=== PATIENT | female | born 1955 | race Caucasian/White ===

== ENCOUNTER 2019-07-02 11:26 | Outpatient (CLI) | payer MEDICARE, SELFPAY | END 2019-07-02 11:27 | disposition home or self-care (01) | LOC: LAB 11:32 | DX: R21 Rash and other nonspecific skin eruption (principal) | CPT/HCPCS: 36415 ==

== ENCOUNTER 2019-07-20 13:09 | Outpatient (CLI) | payer MEDICARE, SELFPAY | END 2019-07-20 13:10 | disposition home or self-care (01) | LOC: LAB 13:15 | PROVIDERS: Visit Provider Family Medicine | DX: Z76.89 Persons encountering health services in other specified circumstances (principal) ==

== ENCOUNTER 2019-07-23 10:23 | Outpatient (RCR) | payer MEDICARE, SELFPAY | END 2019-07-30 23:59 | disposition home or self-care (01) | LOC: WOUND 10:23 | PROVIDERS: Visit Provider Surgery | DX: T65.91XA Toxic effect of unspecified substance, accidental (unintentional), initial encounter (principal); Y92.9 Unspecified place or not applicable | CPT/HCPCS: 11042; 11045; G0463 ==

== ENCOUNTER 2019-08-27 08:33 | Outpatient (RCR) | payer MEDICARE, SELFPAY | END 2019-08-28 23:59 | disposition home or self-care (01) | LOC: WOUND 08:33 | PROVIDERS: Visit Provider Surgery | DX: I96 Gangrene, not elsewhere classified (principal); L98.8 Other specified disorders of the skin and subcutaneous tissue | CPT/HCPCS: 11042; 11045; 87070; 87176; 87205; 88305 ==

== ENCOUNTER 2019-09-24 08:59 | Outpatient (RCR) | payer MEDICARE, SELFPAY | END 2019-09-28 23:59 | disposition home or self-care (01) | LOC: WOUND 08:59 | PROVIDERS: Visit Provider Surgery | DX: E11.622 Type 2 diabetes mellitus with other skin ulcer (principal); L97.802 Non-pressure chronic ulcer of other part of unspecified lower leg with fat layer exposed | CPT/HCPCS: 11042; 11045 ==

== ENCOUNTER 2019-10-22 09:16 | Outpatient (RCR) | payer MEDICARE, SELFPAY | END 2019-10-28 23:59 | disposition home or self-care (01) | LOC: WOUND 09:16 | PROVIDERS: Visit Provider Surgery | DX: E11.622 Type 2 diabetes mellitus with other skin ulcer (principal); L97.802 Non-pressure chronic ulcer of other part of unspecified lower leg with fat layer exposed | CPT/HCPCS: 11042; 11045 ==

== ENCOUNTER 2019-10-29 10:05 | Outpatient (CLI) | payer MEDICARE, SELFPAY | END 2019-10-29 10:06 | disposition home or self-care (01) | LOC: WOUND 11-01 13:29 | PROVIDERS: Visit Provider Surgery | DX: E11.622 Type 2 diabetes mellitus with other skin ulcer (principal); L97.802 Non-pressure chronic ulcer of other part of unspecified lower leg with fat layer exposed | CPT/HCPCS: 11042; 11045 ==

== ENCOUNTER 2019-11-05 09:52 | Outpatient (CLI) | payer MEDICARE, SELFPAY | END 2019-11-05 09:53 | disposition home or self-care (01) | LOC: WOUND 09:54 | PROVIDERS: Visit Provider Surgery | DX: E11.622 Type 2 diabetes mellitus with other skin ulcer (principal); L97.802 Non-pressure chronic ulcer of other part of unspecified lower leg with fat layer exposed | CPT/HCPCS: 11042; 11045 ==

== ENCOUNTER 2019-11-12 09:43 | Outpatient (CLI) | payer MEDICARE, SELFPAY | END 2019-11-12 09:44 | disposition home or self-care (01) | LOC: WOUND 09:44 | PROVIDERS: Visit Provider Surgery | DX: E11.622 Type 2 diabetes mellitus with other skin ulcer (principal); L97.802 Non-pressure chronic ulcer of other part of unspecified lower leg with fat layer exposed | CPT/HCPCS: 11042; 11045 ==

== ENCOUNTER 2019-11-19 08:51 | Outpatient (CLI) | payer MEDICARE, SELFPAY | END 2019-11-19 08:52 | disposition home or self-care (01) | LOC: WOUND 08:52 | PROVIDERS: Visit Provider Surgery | DX: E11.622 Type 2 diabetes mellitus with other skin ulcer (principal); L97.802 Non-pressure chronic ulcer of other part of unspecified lower leg with fat layer exposed | CPT/HCPCS: 11042; 11045 ==

== ENCOUNTER 2019-12-17 08:44 | Outpatient (CLI) | payer MEDICARE, SELFPAY | END 2019-12-17 08:45 | disposition home or self-care (01) | LOC: WOUND 08:46 | PROVIDERS: Visit Provider Surgery | DX: E11.622 Type 2 diabetes mellitus with other skin ulcer (principal); L97.802 Non-pressure chronic ulcer of other part of unspecified lower leg with fat layer exposed | CPT/HCPCS: 11042; 11045 ==

== ENCOUNTER 2020-01-14 09:10 | Outpatient (CLI) | payer MEDICARE, SELFPAY | END 2020-01-14 09:11 | disposition home or self-care (01) | LOC: WOUND 09:11 | PROVIDERS: Visit Provider Surgery | DX: E11.622 Type 2 diabetes mellitus with other skin ulcer (principal); L97.802 Non-pressure chronic ulcer of other part of unspecified lower leg with fat layer exposed | CPT/HCPCS: 99212 ==

== ENCOUNTER 2020-01-24 07:42 | Day surgery (SDC) | payer MEDICARE, SELFPAY ==
[2020-01-21 09:45] VITALS: BMI 34.7
[2020-01-24] VITALS (14 sets, daily range): BP systolic 115–139; BP diastolic 68–101; PULSE 77–117; RESP 16–30; TEMP 36.2–36.7; O2SAT 95–100; BMI 38.0
--- NOTE | 2020-01-24 07:39 | ANES.PREANE2 ---
Pre-Anesthetic Assessment Pre-Anesthetic Assessment: Height/Weight: Height 1.57 m Weight 86.183 kg Proposed Procedure: Operation Date: 01/24/20 09:25 Proposed Procedures p Debridement THIGH WOUND(Bilateral) - Hasmukh Washington MD Social: Social History: No alcohol and No tobacco Exam: Pre-Anes Outpt Exam: alert, oriented x 3, clear to auscultation bilaterally and regular rate & rhythm Airway: Submandibular: WNL Cervical ROM: WNL MP: 2 Dentition: Other (mult missing) History/ROS: No significant history except as noted Pulmonary: Pulmonary: COLÓN CV/HEM: CV/HEM: HTN : : UTI Hepatic: Hepatic: None reported GI: GI: None reported Metabolic: Metabolic: DM and Morbid obesity Musc/skel: Musc/skel: Fibromyalgia, Lower Back Pain and OA/DJD Neuropsych: Neuropsych: Anxiety, Depression and Neuropathy (bilat LE) Anesthetic Plan: ASA status: 3 Anesthesia: Anesthesia Evaluation and General Risk of > 500 ml blood loss (7ml/kg in children): No PFSH Anesthesia PFSH: Medical History Bipolar disorder Cataracts, bilateral Chronic UTI (urinary tract infection) Depression Diabetes mellitus, type II Fibromyalgia Hypertension Osteoarthritis Sleep apnea Surgical History History of cholecystectomy History of gastric surgery History of knee replacement History of orthopedic surgery Data Anesthesia Cardiac Studies: No Data to Display
[2020-01-24 08:30] LABS: Glucose Point of Care 117 mg/dL (70-110)
[2020-01-24] MEDS: sodium chloride 0.9% 1,000 ML 30 ML IV (08:47)
--- NOTE | 2020-01-24 09:42 | W.PM.OPSUD ---
Surgery/Procedure H&P Update DATE OF PROCEDURE: January 24, 2020 DATE H&P PERFORMED: 01/14/20 H&P UPDATE INFORMATION: I have reviewed H&P completed within last 30 days, I have examined patient prior to procedure and No changes to prior documentation PREOP DIAGNOSIS: Bilateral thigh wounds PRIMARY INDICATION FOR PROCEDURE: The same PLANNED PROCEDURE: Operation Date: 01/24/20 09:25 Proposed Procedures p Debridement THIGH WOUND(Bilateral) - Hasmukh Washington MD
[2020-01-24] MEDS: clindamycin 900 MG/50 ML PREMIX 100 MG IV (09:45)
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
[2020-01-24] MEDS: fentaNYL 50 mcg/mL INJ 2mL IVP ×2 (11:09→11:14)
--- NOTE | 2020-01-24 11:12 | SUR.PHASEI ---
1105 PATIENT TO PACU FROM OR. RR EVEN AND UNLABORED. SPO2 99% ON SIMPLE MASK AT 8L. DRESSINGS TO DANIA THIGHS, CDI. PATIENT RATES PAIN 10/10.
[2020-01-24] MEDS: morphine 4 mg/mL SDV 1 mL 2 MG IVP ×2 (11:20→11:29)
--- NOTE | 2020-01-24 11:49 | SUR.PHASEI ---
1141 PATIENT TO OPS FROM PACU. NO DISTRESS. PAIN 03/09. SEE VITALS. DANIA THIGH DRESSINGS, CDI.
--- NOTE | 2020-01-24 12:21 | SUR.PHASEII ---
DOCTOR CHRISTINEURGIUS IN TO TALK WITH PATIENT AND FAMILY.
== END 2020-01-24 12:35 | disposition home or self-care (01) ==
PROVIDERS: Visit Provider Surgery
PROC: (CPT 11042; principal; 2020-01-24 09:15)
DX: L97.122 Non-pressure chronic ulcer of left thigh with fat layer exposed (principal); L97.112 Non-pressure chronic ulcer of right thigh with fat layer exposed; I10 Essential (primary) hypertension; E66.01 Morbid (severe) obesity due to excess calories; Z68.38 Body mass index [BMI] 38.0-38.9, adult; E11.40 Type 2 diabetes mellitus with diabetic neuropathy, unspecified; F32.9 Major depressive disorder, single episode, unspecified; M79.7 Fibromyalgia; M19.90 Unspecified osteoarthritis, unspecified site; G47.30 Sleep apnea, unspecified
CPT/HCPCS: 11042; 11045 ×6; 12345; 36416; 82962; 87015; 87070; 87077; 87116; 87176; 87184; 87186; 87205; 87206; 87801; 88304; 96365; J0131; J2270; J2704; J2710; J3010; J3490; J7030

== ENCOUNTER 2020-01-28 09:08 | Outpatient (CLI) | payer MEDICARE, SELFPAY | END 2020-01-28 09:09 | disposition home or self-care (01) | LOC: WOUND 09:21 | PROVIDERS: Visit Provider Surgery | DX: E11.622 Type 2 diabetes mellitus with other skin ulcer (principal); L98.492 Non-pressure chronic ulcer of skin of other sites with fat layer exposed | CPT/HCPCS: 99212; 99213 ==

== ENCOUNTER 2020-05-05 12:26 | Outpatient (CLI) | payer MEDICARE, SELFPAY ==
[2020-05-05 12:47] LABS: Basophils % 0.4 %; Eosinophils # 0.2 10^3/uL (0.0-0.8); Eosinophils % 2.9 %; Hematocrit 37.7 % (37.0-47.0); Hemoglobin 11.9 g/dL (11.5-15.3); Lymphocytes # 3.8 10^3/uL (0.8-4.8); Lymphocytes % 47.9 %; Mean Corpuscular HGB Conc 31.6 g/dL (30.0-36.0); Mean Corpuscular Hemoglobin 32.6 pg (28.0-34.0); Mean Corpuscular Volume 103.3 fL (81-99); Mean Platelet Volume 11.5 fL (7.4-10.4); Monocytes # 0.5 10^3/uL (0.2-0.9); Neutrophils % 42.7 %; Nucleated Red Blood Cells % 0 %; Platelet Count 195 10^3/cmm (130-400); Red Blood Count 3.65 10^6/uL (4.1-5.3); Red Cell Distribution Width 12.1 % (12.1-15.1)
[2020-05-05 13:10] LABS: Alanine Aminotransferase 11 U/L (0-33); Albumin Level 3.7 g/dL (3.5-5.2); Alkaline Phosphatase 94 IU/L (35-105); Anion Gap 14.4 (5-19); Aspartate Amino Transferase 19 U/L (0-32); Blood Urea Nitrogen 18 mg/dL (8-23); Calcium 9.6 mg/dL (8.5-10.5); Carbon Dioxide 24 mmol/L (22-29); Chloride 103 mmol/L (98-107); Chol HDL Ratio 2.53 mg/dL (0.0-4.40); Cholesterol 149 mg/dL (0-200); Globulin 3.1 g/dL (1.3-4.6); Glomerular Filtration Rate 123.1 mL/min (90-130); Glucose 111 mg/dL (65-115); HDL Cholesterol 59 mg/dL (60-100); LDL Cholesterol Calculated 49 mg/dL (50-129); LDL HDL Ratio 0.83 RATIO (0.00-3.22); Osmolality Calculated 287 mOsm/kg (285-295); Potassium 4.4 mmol/L (3.5-5.1); Sodium 137 mmol/L (136-145); Total Bilirubin 0.2 mg/dL (0.15-1.2); Total Protein 6.8 g/dL (6.6-8.7); Triglycerides 203 mg/dL (0-150)
[2020-05-05 13:25] LABS: Estmated Average Glucose 111; Hemoglobin A1C 5.5 % (4.0-6.0)
== END 2020-05-05 12:27 | disposition home or self-care (01) ==
LOC: LAB 12:29
PROVIDERS: Visit Provider Family Medicine
DX: E11.622 Type 2 diabetes mellitus with other skin ulcer (principal); I10 Essential (primary) hypertension
CPT/HCPCS: 80053; 80061; 83036; 85025

== ENCOUNTER → 2020-05-09 14:23 | Outpatient (BNVA) | payer MEDICARE, SELFPAY | PROVIDERS: Visit Provider Nurse Practitioner Family | DX: Z11.59 Encounter for screening for other viral diseases (principal); J06.9 Acute upper respiratory infection, unspecified; Z20.828 Contact with and (suspected) exposure to other viral communicable diseases | CPT/HCPCS: 87635 ==

== ENCOUNTER 2020-07-19 14:47 | Outpatient (CLI) | payer MEDICARE, SELFPAY ==
[2020-07-19 15:10] LABS: Add Urine Microscopic? NO
[2020-07-19 15:35] LABS: Bilirubin Urine Neg (Negative); Blood Urine Neg (Negative); Glucose Urine UA Norm (Normal); Ketones Urine Negative (Negative); Leukocyte Esterase Urine Negative (Negative); Nitrate Urine Negative (Negative); Protein Urine Neg (Negative); Specific Gravity, Urine 1.015 (1.005-1.030); Urine Appearance Clear (CLEAR); Urine Color Yellow (Yellow); Urobilinogen Urine Norm (Negative); pH Urine 7 (5-7)
[2020-07-19 16:33] LABS: Estmated Average Glucose 120; Hemoglobin A1C 5.8 % (4.0-6.0)
[2020-07-19 16:54] LABS: Alanine Aminotransferase 13 U/L (0-33); Albumin Level 3.9 g/dL (3.5-5.2); Alkaline Phosphatase 151 IU/L (35-105); Aspartate Amino Transferase 23 U/L (0-32); Blood Urea Nitrogen 22 mg/dL (8-23); Calcium 9.9 mg/dL (8.5-10.5); Carbon Dioxide 26 mmol/L (22-29); Chloride 101 mmol/L (98-107); Globulin 3.4 g/dL (1.3-4.6); Glomerular Filtration Rate 99.7 mL/min (90-130); Glucose 100 mg/dL (65-115); Osmolality Calculated 289 mOsm/kg (285-295); Sodium 138 mmol/L (136-145); Thyroid Stimulating Hormone 7.02 uIU/mL (0.27-4.20); Total Bilirubin 0.2 mg/dL (0.15-1.2); Total Protein 7.3 g/dL (6.6-8.7)
[2020-07-19 16:56] LABS: Urine Creatinine 23 mg/dL (28-217); Urine Protein Random 5 mg/dL
[2020-07-19 17:02] LABS: UPRO/UCREAT Ratio 0.22 mg/mg CR
== END 2020-07-19 14:48 | disposition home or self-care (01) ==
PROVIDERS: Visit Provider Physician Assistant
DX: L89.92 Pressure ulcer of unspecified site, stage 2 (principal); E11.9 Type 2 diabetes mellitus without complications; I10 Essential (primary) hypertension
CPT/HCPCS: 80053; 81003; 82570; 83036; 84156; 84443

== ENCOUNTER → 2021-06-29 14:30 | Outpatient (BNVA) | payer MEDICARE, SELFPAY | PROVIDERS: Visit Provider Nurse Practitioner | DX: R39.9 Unspecified symptoms and signs involving the genitourinary system (principal) | CPT/HCPCS: 81000 ==

== ENCOUNTER 2021-11-23 12:37 | Inpatient (IN) | payer MEDICARE, SELFPAY ==
[2021-11-23] VITALS (13 sets, daily range): BP systolic 85–105; BP diastolic 46–67; PULSE 84–107; RESP 14–20; TEMP 36.7–37; O2SAT 90–98; BMI 36.3
--- NOTE | 2021-11-23 12:41 | ED_ITS ---
HPI - General Adult General: Chief complaint: Shortness of Breath/Dyspnea Stated complaint: RESPIRATORY DISTRESS Time Seen by Provider: 11/23/21 12:41 History of Present Illness: Patient is a 66-year-old female with a history of diabetes, hypertension, history of pneumonia presenting to emergency room with acute onset of dyspnea and cough since 2 AM this morning. Patient says that since then, she has been feeling increasingly more fatigued and has been coughing. Patient has not had any productive sputum. Patient normally does not use oxygen at home. EMS was called earlier today and patient was brought to the emergency room. In route, patient was noted to be on 8 L oxygen satting at 93- 94% Onset:2am Duration:ongoing Location:home Severity:moderate Associated symptoms: Reports dyspnea; Deny chest pain, nausea, rash, palpitations or vomiting Review of Systems Const: Denies: fever(s) or chills Eyes: Denies: change in vision ENMT: Denies: mouth pain Card: Denies: chest pain or palpitations Resp: Reports: dyspnea and non-productive cough GI: Denies: abdominal pain, nausea, vomiting or diarrhea : Denies: dysuria Musc: Denies: extremity pain Skin/Breast: Denies: rash or new lesions Neuro: Denies: weakness in extremities Psych: Reports: other (Normal mood) Mic/Lymph: Denies: easy bruising [facility] ED PFSH: Medical History Bipolar disorder Cataracts, bilateral Chronic UTI (urinary tract infection) Decubitus skin ulcer Depression Diabetes mellitus, type II Fibromyalgia Hypertension Osteoarthritis Sleep apnea Surgical History History of cholecystectomy History of gastric surgery History of knee replacement History of orthopedic surgery Social History Smoking and tobacco status: never smoked Physical Exam Const: COMMON NORMALS: alert HENMT: COMMON NORMALS: atraumatic HEAD & SCALP: atraumatic MOUTH: moist mucous membranes not abnormal Eye: COMMON NORMALS: EOMs intact bilaterally and conjunctivae normal CONJUNCTIVA: Yes conjunctivae normal Neck/C-Spine: COMMON NORMALS: full ROM and supple Resp: OTHER: + Mild increased work of breathing, coarse breath sounds bilaterally Cardio: COMMON NORMALS: regular rate RATE: regular rate GI: COMMON NORMALS: Soft to palpation and non-tender PALPATION: Yes Soft to palpation OTHER: No focal TTP. NO guarding rebound, guarding, rigidity. No CVA tenderness to percussion. Neg Medrano/Neg McBurney's point tenderness, no suprabupic tenderness to palpation. Extremity: COMMON NORMALS: full ROM Neuro: SENSORIUM/ORIENTATION: Yes alert MOTOR EXAM: No Abnormal motor strength present and Other motor observations present (no focal motor deficits) Psych: COMMON NORMALS: speech normal SPEECH: Yes normal speech MOOD & AFFECT: Yes euthymic mood Course Vital Signs: Vital signs: Vital Signs Temperature 98.6 F 11/23/21 12:39 Pulse Rate 94 11/23/21 17:10 Respiratory Rate 20 H 11/23/21 16:57 Blood Pressure 95/46 11/23/21 17:10 Pulse Oximetry 96 11/23/21 17:10 [facility] - General Adult Medical Decision Making 66-year-old female with a history of prior pneumonia, hypertension, diabetes presenting to the emergency room acute onset dyspnea since 2 AM this morning with nonproductive cough. On physical exam, patient was found to be satting at 91% on 5 L of oxygen. Patient has no prior oxygen requirement. Coarse breath sounds bilaterally. No signs of lower extremity edema. Count 4.4. Potassium 5.3. ANITRA on CKD with creatinine 1.5 up from baseline. X- ray chest consistent with multifocal pneumonia. Patient adamantly refuses to be on levofloxacin. S/p azithromycin and ceftriaxone, 1L of NS, and duoneb. Patient continues to require 6 L of oxygen satting at 92 to 93%. Disposition: admission Lab Data : 11/23/21 12:55 11/23/21 12:55 Radiology Impressions Chest X-Ray 11/23/21 12:43 IMPRESSION: 1. Bilateral pulmonary infiltrates most marked on the right. This would suggest active pneumonia. Laboratory Results WBC 4.4 10^3/uL (4.0-10.0) 11/23/21 12:55 RBC 3.64 10^6/uL (4.1-5.3) L 11/23/21 12:55 Hgb 11.8 g/dL (11.5-15.3) 11/23/21 12:55 Hct 37.3 % (37.0-47.0) 11/23/21 12:55 MCV 102.5 fl (81-99) H 11/23/21 12:55 MCH 32.4 pg (28.0-34.0) 11/23/21 12:55 MCHC 31.6 g/dL (30.0-36.0) 11/23/21 12:55 RDW 13.4 % (12.1-15.1) 11/23/21 12:55 Plt Count 270 10^3/cmm (130-400) 11/23/21 12:55 MPV 11.1 fL (7.4-10.4) H 11/23/21 12:55 Lymph % (Auto) Not Reportable 11/23/21 12:55 [place] % (Auto) Not Reportable 11/23/21 12:55 Lymph # (Auto) Not Reportable 11/23/21 12:55 [place] # (Auto) Not Reportable 11/23/21 12:55 Total Counted 100 (0-100) 11/23/21 12:55 Atypical Lymphs % 2.0 % (0-5) 11/23/21 12:55 Absolute Neutrophils 3.0 10^3/cmm (1.4-6.5) 11/23/21 12:55 Segmented Neutrophils 34 % 11/23/21 12:55 Abs Segm Neuts (Man) 1.5 10/cmm (1.6-7.1) L 11/23/21 12:55 Band Neutrophils 34.0 % 11/23/21 12:55 Abs Band Neuts (Man) 1.5 10^3/cmm (0.0-1.2) H 11/23/21 12:55 Absolute Lymphocytes 1.1 10^3/cmm (1.2-3.4) L 11/23/21 12:55 Lymphocytes (Manual) 23 % 11/23/21 12:55 Monocytes (Manual) 2.0 % 11/23/21 12:55 Absolute Monocytes 0.1 10^3/cmm (0.1-0.6) 11/23/21 12:55 Eosinophils (Manual) 0 % 11/23/21 12:55 Absolute Eosinophils 0.0 10^3/cmm (0.0-0.7) 11/23/21 12:55 Basophils (Manual) 0.0 % 11/23/21 12:55 Absolute Basophils 0.0 10^3/cmm (0.0-0.2) 11/23/21 12:55 Metamyelocytes 5.0 % 11/23/21 12:55 Platelet Estimate Normal (Normal) 11/23/21 12:55 Sodium 136 mmol/L (136-145) 11/23/21 12:55 Potassium 5.3 mmol/L (3.5-5.1) H 11/23/21 12:55 Chloride 104 mmol/L (98-107) 11/23/21 12:55 Carbon Dioxide 18 mmol/L (22-29) L 11/23/21 12:55 Anion Gap 19.3 (5-19) H 11/23/21 12:55 BUN 31 mg/dL (8-23) H 11/23/21 12:55 Creatinine 1.5 mg/dL (0.5-0.9) H 11/23/21 12:55 GFR Calculation 34.5 mL/min (90-130) L 11/23/21 12:55 Glucose 123 mg/dL (65-115) H 11/23/21 12:55 Calculated Osmolality 290 mOsm/kg (285-295) 11/23/21 12:55 Calcium 9.0 mg/dL (8.5-10.5) 11/23/21 12:55 Troponin T Baseline 10 ng/L (0-10) 11/23/21 12:55 C-Reactive Protein 23.8 mg/L (0.0-4.9) H 11/23/21 12:55 NT-Pro-B Natriuret Pep 2270 pg/mL (0-125) H 11/23/21 12:55 Procalcitonin 9.78 ng/mL (0-0.5) H 11/23/21 12:55 Nasal Influ A H1 2009 PCR Not detected (NOT DETECT) 11/23/21 12:56 Coronavirus 229E (PCR) Not detected (NOT DETECT) 11/23/21 12:56 Influenza A (H1) PCR Not detected (NOT DETECT) 11/23/21 12:56 Influenza A (H3) PCR Not detected (NOT DETECT) 11/23/21 12:56 Influenza Type A (PCR) Not detected (NOT DETECT) 11/23/21 12:56 Influenza Type B (PCR) Not detected (NOT DETECT) 11/23/21 12:56 SARS-CoV-2 (PCR) Not detected (NOT DETECT) 11/23/21 12:56 Imaging Data Other Imaging: Radiologist's impression: [address] [address] XRay Report Signed Patient: Aiyana Sorto Unit #: [id number] : 1955 Age/Sex: 66 / F ADM Date: 11/23/21 Loc: ER Room/Bed: Attending Dr: Ordering Provider/Ordering MD: Gladys Perez MD Date of Service: 11/23/21 Procedure(s): XR chest 1V portable [id number] Accession Number(s): [id number] Report Number: [id number] WS: [id number] Exam: XR chest 1V portable [id number] Date/Time of Exam: 11/23/2021 12:46 PM Reason For Exam: dyspnea Comparison 06/09/2019. There are patchy infiltrates in the mid and lower right lung and also along the left heart border suggesting active pneumonia. The lungs are fully expanded. No pleural effusions. Normal cardiomediastinal silhouette. Bony structures are intact. XR/XR chest 1V portable [id number] IMPRESSION: 1. Bilateral pulmonary infiltrates most marked on the right. This would suggest active pneumonia. ? Dictated By: Davy London DO Signed By: Davy London DO Signed Date/Time: 11/23/21 1303 DD/ 1301 Discharge Plan Discharge Patient Disposition: Admitted As Inpatient Admit Provider: Yuan Ellison Clinical Impression: Acute dyspnea, Hypoxemia, Acute respiratory distress, Pneumonia, ANITRA (acute kidney injury) Condition: Stable Coding Level of Care Code ED Shells Inspector for Chg Fwd Exam Comprehensive
--- NOTE | 2021-11-23 12:43 | XR_ITS ---
WS: [email or web address] Exam: XR chest 1V portable [id number] Date/Time of Exam: 11/23/2021 12:46 PM Reason For Exam: dyspnea Comparison 06/09/2019. There are patchy infiltrates in the mid and lower right lung and also along the left heart border sug gesting active pneumonia. The lungs are fully expanded. No pleural effusions. Normal cardiomediastina l silhouette. Bony structures are intact. XR/XR chest 1V portable [id number] IMPRESSION: 1. Bilateral pulmonary infiltrates most marked on the right. This would suggest active pneumonia.
--- NOTE | 2021-11-23 12:43 | ECG_ITS ---
[facility] Test Date: 2021-11-23 Pat Name: Aiyana Sorto Department: Room: Gender: Female Sample Carrier: : 1955 Requested By: Gladys Perez Order Number: [id number] Nico MD: Rehan Bhatti M.D. Measurements Intervals [place] Rate: 100 P: 66 RI: 129 QRS: 36 QRSD: 84 T: 66 QT: 325 QTc: 420 Interpretive Statements SINUS TACHYCARDIA LOW QRS VOLTAGE IN EXTREMITY LEADS [QRS DEFLECTION < 0.5 mV IN LIMB LEADS] ABNORMAL RHYTHM ECG Compared to ECG 06/09/2019 20:11:39 Low QRS voltage now present T-wave abnormality no longer present Electronically Signed On 11-23-2021 22:04:05 CDT by Rehan Bhatti M.D. [id number]
[2021-11-23 13:08] LABS: Hematocrit 37.3 % (37.0-47.0); Hemoglobin 11.8 g/dL (11.5-15.3); Mean Corpuscular HGB Conc 31.6 g/dL (30.0-36.0); Mean Corpuscular Hemoglobin 32.4 pg (28.0-34.0); Mean Corpuscular Volume 102.5 fl (81-99); Mean Platelet Volume 11.1 fL (7.4-10.4); Platelet Count 270 10^3/cmm (130-400); Red Blood Count 3.64 10^6/uL (4.1-5.3); Red Cell Distribution Width 13.4 % (12.1-15.1); White Blood Count 4.4 10^3/uL (4.0-10.0)
[2021-11-23] MEDS: ipratropium-albuterol 3 mL Neb INHALATION ×5 (13:13→20:13)
[2021-11-23 13:25] LABS: Troponin(5th) Baseline 10 ng/L (0-10)
[2021-11-23 13:33] LABS: NT Pro B Type Natriuretic Pept 2270 pg/mL (0-125); Procalcitonin 9.78 ng/mL (0-0.5)
[2021-11-23 13:39] LABS: Absolute Segmented Neutrophil 1.5 10/cmm (1.6-7.1); Band Neutrophils Absolute 1.5 10^3/cmm (0.0-1.2); Eosinophils 0 %; Lymphocytes 23 %; Lymphocytes Absolute 1.1 10^3/cmm (1.2-3.4); Monocytes Absolute 0.1 10^3/cmm (0.1-0.6); Platelet Estimate Normal (Normal); Segmented Neutrophils 34 %; Slide Review Slide Review Perform; Total Cells Counted 100 (0-100)
[2021-11-23 13:44] LABS: Blood Urea Nitrogen 31 mg/dL (8-23); C Reactive Protein 23.8 mg/L (0.0-4.9); Carbon Dioxide 18 mmol/L (22-29); Chloride 104 mmol/L (98-107); Glomerular Filtration Rate 34.5 mL/min (90-130); Glucose 123 mg/dL (65-115); Osmolality Calculated 290 mOsm/kg (285-295); Sodium 136 mmol/L (136-145)
[2021-11-23 13:48] LABS: Anion Gap 19.3 (5-19); Potassium 5.3 mmol/L (3.5-5.1)
[2021-11-23] MEDS: cefTRIAXone 1,000 MG in sodium chloride 0.9% (plus) 50 ML 100 MG IV (13:55)
[2021-11-23] MEDS: azithromycin 500 MG in sodium chloride 0.9% 250 ML 250 MG IV (14:09)
[2021-11-23] MEDS: sodium chloride 0.9% 1,000 ML 999 ML IV (14:10)
--- NOTE | 2021-11-23 14:23 | P.HP_ITS ---
Providers/Chief Complaint Admitting Physician: Yuan Ellison MD Chief Complaint: RESPIRATORY DISTRESS History of Present Illness Aiyana Sorto is a 66 year old female with PMH of HTN , DM COVID 19 , Sleep Apnea, morbid obesity came in with C/O worsening SOB as well as non productive cough started this morning, and since then has progressively worsened. Currently she deny :Any fever,chills,headache,runny nose,abdominal pain, nausea,vomiting. Upon arrival in the ER She was worked up for above mention complain. Pertinent Imaging studies: Xray chest: B/L Extensive infiltrates rt >lt Pertinent Labs : WBC: 4.4 , H&H : 11.8/37.3 , PLT : 270 , Na: 136. k:5.3 BUN/SCR : 31/1.5 Procalcitonin : 9.78 , Pro BNP: 2270 COVID-PCR:Negative Review of Systems General: Reports: 10 or more systems reviewed and unremarkable except in HPI and below Const: Denies: fever(s), chills, body aches, change in appetite or diaphoresis Card: Denies: palpitations, edema, swelling of feet/ankles or leg pain with exertion Resp: Reports: dyspnea; Denies: wheezing or pain on inspiration GI: Denies: abdominal pain, nausea, vomiting, diarrhea or constipation : Denies: flank pain Musc: Denies: back pain, extremity pain or extremity swelling Neuro: Denies: headache(s), difficulty walking or confusion Medications/Allergies Home Medications Medication Instructions Recorded Confirmed Last Taken Type celecoxib 200 mg capsule 200 mg PO BID 01/21/20 11/23/21 11/22/21 History gabapentin 800 mg tablet 800 mg PO QID 01/21/20 11/23/21 11/22/21 History hydrocodone 5 mg-acetaminophen 325 5 - 325 tab PO QID 01/21/20 11/23/21 11/22/21 History mg tablet hydromorphone 2 mg tablet 2 mg PO QID 01/21/20 11/23/21 11/22/21 History insulin aspart U-100 100 unit/mL See Protocol SUBCUT DAILY 01/21/20 11/23/21 01/23/20 20:00 History (3 mL) subcutaneous pen (Novolog Flexpen U-100 Insulin aspart) morphine 15 mg tablet,extended 15 mg PO BID 01/21/20 11/23/21 11/22/21 History release diphenoxylate-atropine 2.5 1 - 2 tab PO QID 11/23/21 11/23/21 11/22/21 History mg-0.025 mg tablet honey 100 % topical paste See Rx Instructions .ROUTE .COMPLEX 11/23/21 11/23/21 11/22/21 History (MediHoney (honey)) lisinopril 5 mg tablet See Rx Instructions .ROUTE .COMPLEX 11/23/21 11/23/21 11/22/21 History promethazine 25 mg tablet 25 mg PO QID PRN 11/23/21 11/23/21 11/22/21 History Allergies Allergy/AdvReac Type Severity Reaction Status Date / Time adhesive tape Allergy ALGY-Bliste Verified 11/23/21 14:18 r ketorolac [From Toradol] Allergy ALGY-Rash Verified 11/23/21 14:18 levofloxacin [From Levaquin] Allergy Unknown Verified 11/23/21 14:18 oxybutynin Allergy ADR-Faintin Verified 11/23/21 14:18 g Penicillins Allergy ALGY-Rash Verified 11/23/21 14:18 Udevcbh-IJN-IeR Reductase Allergy Unknown Verified 11/23/21 14:18 Inhibitor [Jmtbxqx-Jie-Dhi Reductase Inhibitor] zinc Allergy ALGY-Bliste Verified 11/23/21 14:18 r LATEX Allergy ADR-Irritab Uncoded 11/23/21 12:38 le PFSH Acute PFSH: Medical History Bipolar disorder Cataracts, bilateral Chronic UTI (urinary tract infection) Decubitus skin ulcer Depression Diabetes mellitus, type II Fibromyalgia Hypertension Osteoarthritis Sleep apnea Surgical History History of cholecystectomy History of gastric surgery History of knee replacement History of orthopedic surgery Social History Smoking and tobacco status: never smoked Vitals/I&O/Wt Last Vital Signs Temp 98.6 F 11/23/21 12:39 Pulse 107 H 11/23/21 13:10 Resp 17 11/23/21 13:10 Pulse Ox 91 11/23/21 13:10 Weight last 48 hrs Weight 90.265 kg Physical Exam Const: COMMON NORMALS: patient oriented x3 HENMT: COMMON NORMALS: normocephalic, atraumatic, hearing grossly normal bilaterally and external ears normal HEAD & SCALP: normocephalic and atraumatic EXTERNAL EAR: Yes external ears normal Eye: COMMON NORMALS: no scleral icterus GENERAL EYE: appearance normal, mc th eyes and all related structures Chest: CHEST: Yes Symmetrical chest wall rise Resp: EFFORT & INSPECTION: Yes symmetric chest movement OTHER: B/L Crackles Present in both lungs jasso Cardio: COMMON NORMALS: regular rate, regular rhythm, S1 normal heart sound present, S2 normal heart sound present, No gallops present (Cardio), No murmurs present (Cardio), No rub (Cardio) and Peripheral pulses 2+ throughout RATE: regular rate RHYTHM: regular rhythm HEART SOUNDS: S1 normal heart sound present and S2 normal heart sound present PERIPHERAL PULSES: Peripheral pulses 2+ throughout GI: COMMON NORMALS: Normal to inspection, nondistended, normoactive bowel sounds present, Soft to palpation, non-tender, No hepatosplenomegaly present and no masses AUSCULTATION: Yes normoactive bowel sounds PALPATION: Yes Soft to palpation and Yes No hepatosplenomegaly present RECTAL EXAM: deferred Extremity: COMMON NORMALS: no clubbing, cyanosis or edema and no pedal edema Neuro: COMMON NORMALS: patient oriented x3 Data : 11/23/21 12:55 11/23/21 12:55 A&P Assessment and plan (1) Pneumonia: Status: Acute (2) ANITRA (acute kidney injury): Status: Acute (3) Hypertension: Status: Acute (4) Fibromyalgia: Status: Acute (5) Diabetes mellitus, type II: Status: Acute (6) Hypoxemia: Status: Acute (7) Acute dyspnea: Status: Acute Plan 66 year old female with PMH of HTN , DM COVID 19 , Sleep Apnea, morbid obesity came in with C/O worsening SOB as well as non productive cough. Assessment : # Pneumonia: came in with C/O worsening SOB as well as non productive cough. Xray chest : B/L Extensive infiltrates rt >lt Procalcitonin: 9.78 Follow Blood culture Follow Sputum Gram stain and culture Urine legionella antigen Bacterial antigen panel MRSA PCR ABG Monitor xary chest DUO NEbs Supplemental Oxygen as needed Currently on vancomycin as well as Cefepime. Anti Tussives #DM : LDSSI Monitor FSG Carbohydrate consistent diet #ANITRA ON CKD Likely Prerenal Continue Gentle I.V Hydration Monitor BMP Avoid usual nephrotoxics #Code Status : Full code # DVT PPX: on lovenox Attestations Medical Necessity Statement*: Patient needs to be in hospital for the management of PNA.Anticipated LOS Greater then 2 Midnights. Time Spent in Patient Care: Greater than 35 minutes (>than 50% of time spent in counselling and/or direct pt care on unit) . Coding Level of Care Code Acute Finishing Supervisor for g Fwd Exam Comprehensive Diagnoses Pneumonia J18.9 ANITRA (acute kidney injury) N17.9 Hypertension I10 Fibromyalgia M79.7 Diabetes mellitus, type II E11.9 Hypoxemia R09.02 Acute dyspnea R06.00
[2021-11-23] MEDS: morphine 4 mg/mL SDV 1 mL 2 MG IVP (14:43)
--- NOTE | 2021-11-23 14:43 | ECG_ITS ---
[facility] Test Date: 2021-11-23 Pat Name: Aiyana Sorto Department: Room: 279 Gender: Female Architect Internship: : 1955 Requested By: Gladys Perez Order Number: [id number] Nico MD: Rehan Bhatti M.D. Measurements Intervals [place] Rate: 89 P: 75 CO: 147 QRS: 63 QRSD: 89 T: 72 QT: 371 QTc: 453 Interpretive Statements SINUS RHYTHM LOW QRS VOLTAGE IN EXTREMITY LEADS [QRS DEFLECTION < 0.5 mV IN LIMB LEADS] Compared to ECG 11/23/2021 12:57:23 Sinus tachycardia no longer present Electronically Signed On 11-23-2021 22:27:30 CDT by Rehan Bhatti M.D. [id number]
[2021-11-23 15:02] LABS: Adenovirus Not Detected (NOT DETECT); Chlamydia Pneumoniae Not Detected (NOT DETECT); Coronavirus 229E,HKU1,NL63,OC4 Not Detected (NOT DETECT); Human Metapneumovirus Not Detected (NOT DETECT); Human Rhinovirus/Enterovirus Not Detected (NOT DETECT); Influenza A Not Detected (NOT DETECT); Influenza A H1 Not Detected (NOT DETECT); Influenza A H1-2009 Not Detected (NOT DETECT); Influenza A H3 Not Detected (NOT DETECT); Influenza B Not Detected (NOT DETECT); Mycoplasma Pneumoniae Not Detected (NOT DETECT); Parainfluenza Virus Type 1 Not Detected (NOT DETECT); Parainfluenza Virus Type 2 Not Detected (NOT DETECT); Parainfluenza Virus Type 3 Not Detected (NOT DETECT); Parainfluenza Virus Type 4 Not Detected (NOT DETECT); Respiratory Syncytial Virus A Not Detected (NOT DETECT); Respiratory Syncytial Virus B Not Detected (NOT DETECT); SARS-COV-2 Not Detected (NOT DETECT)
[2021-11-23 15:24] LABS: Influenza A Not Detected (NOT DETECT); Influenza A H1 Not Detected (NOT DETECT); Influenza A H1-2009 Not Detected (NOT DETECT); Influenza A H3 Not Detected (NOT DETECT); Influenza B Not Detected (NOT DETECT); Results from Genmark
[2021-11-23 15:38] LABS: Troponin 5 2HR 8.51 ng/L (0-10)
[2021-11-23 15:51] LABS: Troponin 5 2HR Delta -1.49 ABS# (0-10)
[2021-11-23 18:29] LABS: Glucose Point of Care 236 mg/dL (70-110)
[2021-11-23] MEDS: insulin lispro 100 unit/1 mL SUBCUT (18:41)
[2021-11-23] MEDS: gabapentin 400 mg Capsule 800 MG PO ×2 (18:41→21:02)
[2021-11-23] MEDS: enoxaparin 40 mg/0.4 mL Syringe SUBCUT (18:41)
[2021-11-23] MEDS: guaiFENesin-dextromethorphan UDC 10 mL 5 ML PO ×2 (18:42→23:36)
[2021-11-23] MEDS: sodium chloride 0.9% 1,000 ML 75 ML IV (18:43)
--- NOTE | 2021-11-23 18:43 | ECG_ITS ---
[facility] Test Date: 2021-11-23 Pat Name: Aiyana Sorto Department: Room: 279 Gender: Female Boiler Out: : 1955 Requested By: Gladys Perez Order Number: [id number] Reading MD: Rehan Bhatti M.D. Measurements Intervals [place] Rate: 89 P: 69 NJ: 156 QRS: 53 QRSD: 90 T: 67 QT: 351 QTc: 428 Interpretive Statements SINUS RHYTHM LOW QRS VOLTAGE IN EXTREMITY LEADS [QRS DEFLECTION < 0.5 mV IN LIMB LEADS] Compared to ECG 11/23/2021 15:44:04 No significant changes Electronically Signed On 11-23-2021 22:28:21 CDT by Rehan Bhatti M.D. [id number]
[2021-11-23 19:43] LABS: Troponin 5 6HR 7.38 ng/L (0-10)
[2021-11-23] MEDS: cefepime 2,000 MG in sodium chloride 0.9% (plus) 50 ML 100 MG IV (19:50)
[2021-11-23] MEDS: vancomycin 750 MG in sodium chloride 0.9% 250 ML 250 MG IV (20:27)
[2021-11-23] MEDS: HYDROcodone-acetaminophen 5-325 mg Tablet 1 TAB PO (21:03)
[2021-11-23 21:07] LABS: Glucose Point of Care 134 mg/dL (70-110)
[2021-11-24] VITALS (17 sets, daily range): BP systolic 91–118; BP diastolic 42–67; PULSE 64–104; RESP 14–18; TEMP 36.7–37.2; O2SAT 93–98
[2021-11-24] MEDS: ipratropium-albuterol 3 mL Neb INHALATION ×4 (03:40→21:00)
[2021-11-24 05:37] LABS: Basophils # 0.1 10^3/uL (0.0-0.1); Basophils % 0.4 %; Hematocrit 33.5 % (37.0-47.0); Hemoglobin 10.4 g/dL (11.5-15.3); Lymphocytes # 2.3 10^3/uL (0.8-4.8); Lymphocytes % 14.3 %; Mean Corpuscular Hemoglobin 32.5 pg (28.0-34.0); Mean Corpuscular Volume 104.7 fl (81-99); Mean Platelet Volume 11.2 fL (7.4-10.4); Monocytes # 0.6 10^3/uL (0.2-0.9); Monocytes % 3.5 %; Neutrophils # 13.29 10^3/uL (1.8-7.7); Neutrophils % 81.1 %; Nucleated Red Blood Cells % 0 %; Platelet Count 222 10^3/cmm (130-400); Red Cell Distribution Width 13.5 % (12.1-15.1); White Blood Count 16.4 10^3/uL (4.0-10.0)
[2021-11-24 05:57] LABS: Anion Gap 13.5 (5-19); Blood Urea Nitrogen 37 mg/dL (8-23); Calcium 8.8 mg/dL (8.5-10.5); Carbon Dioxide 22 mmol/L (22-29); Chloride 107 mmol/L (98-107); Glomerular Filtration Rate 40.7 mL/min (90-130); Glucose 109 mg/dL (65-115); Osmolality Calculated 295 mOsm/kg (285-295); Potassium 4.5 mmol/L (3.5-5.1); Sodium 138 mmol/L (136-145)
[2021-11-24 05:58] LABS: Lactic Sepsis W/Reflex 1.9 mmol/L (0.5-2.2)
[2021-11-24 05:59] LABS: Slide Review Slide Review Perform
[2021-11-24 06:00] LABS: Procalcitonin 8.61 ng/mL (0-0.5)
[2021-11-24] MEDS: guaiFENesin-dextromethorphan UDC 10 mL 5 ML PO ×3 (06:23→18:20)
[2021-11-24 06:35] LABS: Glucose Point of Care 99 mg/dL (70-110)
[2021-11-24] MEDS: HYDROcodone-acetaminophen 5-325 mg Tablet 1 TAB PO ×3 (08:38→20:49)
[2021-11-24] MEDS: gabapentin 400 mg Capsule 800 MG PO ×3 (08:38→20:49)
[2021-11-24] MEDS: cefepime 2,000 MG in sodium chloride 0.9% (plus) 50 ML 100 MG IV (08:38)
--- NOTE | 2021-11-24 09:27 | USCV_ITS ---
Aiyana Sorto Age: 66 Gender: F : 1955 Exam Date: 11/24/2021 11:00 Ordering Phys: Yuan Ellison MD Technologist: Alberto Pickard [place] [facility] [place]: SOB BP: 97 / 42 HR: Rhythm: Sinus Technical Quality: Very technically difficult study MEASUREMENTS (Male / Female) Normal Values 2D ECHO IVC Diameter 2.7 cm DOPPLER Right Atrial Pressure 8.0 mmHg FINDINGS Left Ventricle Right Ventricle Right Atrium Left Atrium Mitral Valve Aortic Valve Tricuspid Valve Pulmonic Valve Pericardium Aorta IVC CONCLUSIONS Technically very limited quality echocardiogram with poor ultrasonic windows LV systolic function is grossly normal Comparison with prior echocardiogram now possible because of poor visualization of cardiac structures. Adan Aparicio MD (Electronically Signed) Final Date: 24 Nov 2021 19:49 S
--- NOTE | 2021-11-24 09:29 | PM.PN ---
Subjective Subjective: Patient was seen and examined this morning, continue to complain of significant shortness of breath. Serum creatinine has improved slightly. Patient has bilateral crackles in both lungs we will give a dose of Lasix today 20 mg IV. Medications: Medication Review Details: Generic Name Dose Route Start Last Admin Trade Name Kika PRN Reason Stop Dose Admin Hydrocodone Bitart /Acetaminophen 1 tab 11/23/21 21:00 11/24/21 08:38 Hydrocodone-Acet aminophen 5-325 Mg Tablet PO 1 tab QID GENE Administration Albuterol/Ipratrop ium 3 ml 11/23/21 15:00 11/24/21 08:21 Ipratropium-Albu terol 3 Ml Neb INHALATION 3 ml Q6H GENE Administration Enoxaparin Sodium 40 mg 11/23/21 19:30 11/23/21 18:41 Enoxaparin 40 Mg /0.4 Ml Syringe SUBCUT 40 mg Q24H GENE Administration Gabapentin 800 mg 11/23/21 17:00 11/24/21 08:38 Gabapentin 400 M g Capsule PO 800 mg QID GENE Administration Guaifenesin/Dextro methorphan 5 ml 11/23/21 18:15 11/24/21 06:23 Guaifenesin-Dext romethorphan Udc 1 0 Ml PO 5 ml Q6H GENE Administration Hydromorphone HCl 2 mg 11/23/21 21:00 11/24/21 08:39 Hydromorphone 4 Mg Tablet PO 2 mg QID GENE Administration Vancomycin HCl 750 mg/ Sodium 250 mls @ 250 mls /hr 11/23/21 20:30 11/23/21 21:37 Chloride IV Infused Q24H GENE Infusion Cefepime HCl 2,000 mg/ Sodium 50 mls @ 100 mls/ hr 11/24/21 08:30 11/24/21 08:38 Chloride IV 100 mls/hr Q12H GENE Administration Protocol Insulin Human Lisp ro 0 unit 11/23/21 18:00 11/24/21 08:20 Insulin Lispro 1 00 Unit/1 Ml SUBCUT Not Given WM&BEDTIME GENE Protocol Vitals/I&O/Wt Last Vital Signs Temp 98.5 F 11/24/21 07:52 Pulse 87 11/24/21 08:28 Resp 18 11/24/21 08:39 BP 97/42 11/24/21 07:52 Pulse Ox 98 11/24/21 08:21 11/23/21 11/24/21 11/24/21 22:59 06:59 14:59 Intake Total 1850 / 1850 Output Total 300 / 300 825 / 1125 Balance 1550 / 1550 -825 / 725 Weight last 48 hrs Weight 90.265 kg Physical Exam Const: COMMON NORMALS: patient oriented x3 HENMT: COMMON NORMALS: normocephalic, atraumatic, hearing grossly normal bilaterally and external ears normal HEAD & SCALP: normocephalic and atraumatic EXTERNAL EAR: Yes external ears normal Eye: COMMON NORMALS: no scleral icterus GENERAL EYE: appearance normal, both eyes and all related structures Chest: COMMONS NORMALS: normal inspection of the chest and normal palpation of entire chest wall CHEST: Yes Symmetrical chest wall rise Resp: COMMON NORMALS: normal respiratory effort, No retractions, No use of accessory muscles and clear to auscultation bilaterally EFFORT & INSPECTION: Yes symmetric chest movement AUSCULTATION: clear to auscultation bilaterally OTHER: B/L Crackles Present in both lungs jasso Cardio: COMMON NORMALS: regular rate, regular rhythm, S1 normal heart sound present, S2 normal heart sound present, No gallops present (Cardio), No murmurs present (Cardio), No rub (Cardio) and Peripheral pulses 2+ throughout RATE: regular rate RHYTHM: regular rhythm HEART SOUNDS: S1 normal heart sound present and S2 normal heart sound present PERIPHERAL PULSES: Peripheral pulses 2+ throughout GI: COMMON NORMALS: Normal to inspection, nondistended, normoactive bowel sounds present, Soft to palpation, non-tender, No hepatosplenomegaly present and no masses AUSCULTATION: Yes normoactive bowel sounds PALPATION: Yes Soft to palpation and Yes No hepatosplenomegaly present RECTAL EXAM: deferred Extremity: COMMON NORMALS: no clubbing, cyanosis or edema and no pedal edema Neuro: COMMON NORMALS: patient oriented x3 Urinary Catheter Management: Sloan Latex Free: Cath Placed During This Visit: yes Reason for Continuing Indwelling Catheter: Acute Urinary Retention or Obstruction Urinary Catheter Date of Insertion: 11/24/21 Urinary Catheter Time of Insertion: 04:50 Data : 11/24/21 05:05 11/24/21 05:05 Micro: Microbiology 11/24/21 05:03 Legionella Urinary Antigen - Final Urine Catheterized 11/23/21 12:55 Blood Culture - Preliminary Blood SPECIMEN COLLECTED 11/23/21 12:55 Blood Culture - Preliminary Blood SPECIMEN COLLECTED A&P Assessment and plan (1) Pneumonia: Status: Acute (2) ANITRA (acute kidney injury): Status: Acute (3) Hypertension: Status: Acute (4) Fibromyalgia: Status: Acute (5) Diabetes mellitus, type II: Status: Acute (6) Hypoxemia: Status: Acute (7) Acute dyspnea: Status: Acute Plan 66 year old female with PMH of HTN , DM COVID 19 , Sleep Apnea, morbid obesity came in with C/O worsening SOB as well as non productive cough. Assessment : # Pneumonia: came in with C/O worsening SOB as well as non productive cough. Xray chest : B/L Extensive infiltrates rt >lt Procalcitonin: 9.78 Follow Blood culture Follow Sputum Gram stain and culture Urine legionella antigen : Negative Bacterial antigen panel: MRSA PCR: Negative proBNP:[id number] ABG: Monitor xary chest: 2D echo: DUO NEbs Supplemental Oxygen as needed Continue cefepime Vancomycin has been discontinued Anti Tussives #DM : LDSSI Monitor FSG Carbohydrate consistent diet #ANITRA ON CKD Likely Prerenal Was on gentle I.V Hydration Monitor BMP Avoid usual nephrotoxics #Code Status : Full code # DVT PPX: on lovenox Attestations Medical Necessity Statement*: Patient needs to be in hospital for management of pneumonia. Time Spent in Patient Care: Greater than 35 minutes (>than 50% of time spent in counselling and/or direct pt care on unit). Coding Level of Care Code Acute Lease Administrator for [facility] Fwd Exam Comprehensive Diagnoses Pneumonia J18.9 ANITRA (acute kidney injury) N17.9 Hypertension I10 Fibromyalgia M79.7 Diabetes mellitus, type II E11.9 Hypoxemia R09.02 Acute dyspnea R06.00
[2021-11-24] MEDS: FUROsemide 10 mg/mL SDV 2mL 20 MG IVP (10:23)
[2021-11-24 11:05] LABS: Glucose Point of Care 169 mg/dL (70-110)
[2021-11-24 12:13] LABS: Glucose Point of Care 117 mg/dL (70-110)
[2021-11-24 17:14] LABS: Glucose Point of Care 170 mg/dL (70-110)
[2021-11-24] MEDS: insulin lispro 100 unit/1 mL SUBCUT (18:20)
[2021-11-24 20:18] LABS: Glucose Point of Care 116 mg/dL (70-110)
[2021-11-24] MEDS: enoxaparin 40 mg/0.4 mL Syringe SUBCUT (20:48)
[2021-11-25] VITALS (14 sets, daily range): BP systolic 102–124; BP diastolic 51–82; PULSE 70–85; RESP 16–18; TEMP 36.8–37.4; O2SAT 95–98
[2021-11-25] MEDS: guaiFENesin-dextromethorphan UDC 10 mL 5 ML PO ×3 (01:02→18:29)
[2021-11-25] MEDS: gabapentin 400 mg Capsule 800 MG PO ×4 (01:02→21:59)
[2021-11-25] MEDS: HYDROcodone-acetaminophen 5-325 mg Tablet 1 TAB PO ×4 (03:24→22:01)
[2021-11-25 03:28] LABS: Bacillus cereus group Not Detected (NOT DETECT); Bacillus subtillis group Not Detected (NOT DETECT); Corynebacterium Not Detected (NOT DETECT); Cutibacterium acnes (P.acnes) Not Detected (NOT DETECT); Enterococcus Not Detected (NOT DETECT); Enterococcus faecalis Not Detected (NOT DETECT); Enterococcus faecium Not Detected (NOT DETECT); Lactobacillus species Not Detected (NOT DETECT); Listeria Not Detected (NOT DETECT); Listeria monocytogenes Not Detected (NOT DETECT); Micrococcus Not Detected (NOT DETECT); Pan Candida Not Detected (NOT DETECT); Pan Gram-Negative Not Detected (NOT DETECT); Staphylococcus epidermidis Detected (NOT DETECT); Staphylococcus lugdunensis Not Detected (NOT DETECT); Staphylococcus species Detected (NOT DETECT); Streptococcus agalactiae Not Detected (NOT DETECT); Streptococcus anginosus group Not Detected (NOT DETECT); Streptococcus pneumoniae Not Detected (NOT DETECT); Streptococcus pyogenes Not Detected (NOT DETECT); Streptococcus species Not Detected (NOT DETECT); mecA Detected (NOT DETECT); mecC Not Detected (NOT DETECT)
[2021-11-25 03:47] LABS: Basophils # 0.1 10^3/uL (0.0-0.1); Basophils % 0.6 %; Eosinophils % 0.2 %; Hematocrit 31.1 % (37.0-47.0); Hemoglobin 10.2 g/dL (11.5-15.3); Lymphocytes # 2.3 10^3/uL (0.8-4.8); Mean Corpuscular HGB Conc 32.8 g/dL (30.0-36.0); Mean Corpuscular Hemoglobin 32.9 pg (28.0-34.0); Mean Corpuscular Volume 100.3 fl (81-99); Mean Platelet Volume 11.3 fL (7.4-10.4); Monocytes # 0.6 10^3/uL (0.2-0.9); Monocytes % 2.7 %; Neutrophils # 15.06 10^3/uL (1.8-7.7); Neutrophils % 73.4 %; Nucleated Red Blood Cells % 0 %; Platelet Count 205 10^3/cmm (130-400); Red Cell Distribution Width 13.9 % (12.1-15.1); White Blood Count 20.5 10^3/uL (4.0-10.0)
[2021-11-25 04:04] LABS: Anion Gap 16.8 (5-19); Blood Urea Nitrogen 25 mg/dL (8-23); Calcium 8.8 mg/dL (8.5-10.5); Carbon Dioxide 20 mmol/L (22-29); Chloride 108 mmol/L (98-107); Glomerular Filtration Rate 122.7 mL/min (90-130); Glucose 95 mg/dL (65-115); Osmolality Calculated 294 mOsm/kg (285-295); Potassium 4.8 mmol/L (3.5-5.1); Sodium 140 mmol/L (136-145)
[2021-11-25 04:10] LABS: Slide Review Slide Review Perform
[2021-11-25 07:36] LABS: Glucose Point of Care 90 mg/dL (70-110)
[2021-11-25] MEDS: cefepime 2,000 MG in sodium chloride 0.9% (plus) 50 ML 100 MG IV ×2 (08:19→22:00)
[2021-11-25] MEDS: ipratropium-albuterol 3 mL Neb INHALATION ×2 (09:00→15:50)
[2021-11-25] MEDS: azithromycin 500 MG in sodium chloride 0.9% 250 ML 250 MG IV (10:28)
[2021-11-25 11:32] LABS: Thyroid Stimulating Hormone 1.52 uIU/mL (0.27-4.20)
[2021-11-25 11:41] LABS: Glucose Point of Care 128 mg/dL (70-110)
--- NOTE | 2021-11-25 11:50 | P.PN_ITS ---
Subjective Subjective: Patient was seen this morning she tells me she is feeling a lot better, she does not use oxygen at home, he here she is on 2 L, no history of lung disease, no fevers overnight, no chills, no nausea, no vomiting, no chest pain, she feels a lot better, she was able to ambulate yesterday, she is comp laining of diarrhea this morning Vitals/I&O/Wt Last Vital Signs Temp 98.5 F 11/25/21 07:06 Pulse 84 11/25/21 09:03 Resp 18 11/25/21 09:03 BP 124/67 11/25/21 07:06 Pulse Ox 96 11/25/21 09:03 11/24/21 11/25/21 11/25/21 22:59 06:59 14:59 Intake Total 1360 / 1530 240 / 1770 50 / 50 Output Total 450 / 1700 1640 / 3340 525 / 525 Balance 910 / -170 -1400 / -1570 -475 / -475 Weight last 48 hrs Weight 90.265 kg Physical Exam Const: COMMON NORMALS: no acute distress and patient oriented x3 Resp: COMMON NORMALS: normal respiratory effort, No retractions, No use of accessory muscles and clear to auscultation bilaterally AUSCULTATION: clear to auscultation bilaterally Cardio: COMMON NORMALS: regular rate, regular rhythm, S1 normal heart sound present and S2 normal heart sound present RATE: regular rate RHYTHM: regular rhythm HEART SOUNDS: S1 normal heart sound present and S2 normal heart sound present GI: COMMON NORMALS: Normal to inspection, nondistended, normoactive bowel sounds present, Soft to palpation, non-tender and No hepatosplenomegaly present PALPATION: Yes Soft to palpation and Yes No hepatosplenomegaly present Extremity: COMMON NORMALS: no clubbing, cyanosis or edema and no pedal edema Neuro: COMMON NORMALS: patient oriented x3 Psych: COMMON NORMALS: mental status grossly normal Urinary Catheter Management: Sloan Latex Free: Cath Placed During This Visit: yes Reason for Continuing Indwelling Catheter: Acute Urinary Retention or Obstruction Urinary Catheter Date of Insertion: 11/24/21 Urinary Catheter Time of Insertion: 04:50 Data : 11/25/21 03:25 11/25/21 03:25 Micro: Microbiology 11/23/21 12:55 Blood Culture - Preliminary Blood Staphylococcus epidermidis 11/23/21 12:55 Blood Culture - Preliminary Blood NEGATIVE TO DATE 11/24/21 05:05 MRSA Culture - Final Nose A&P Assessment and plan (1) Pneumonia: Status: Acute (2) ANITRA (acute kidney injury): Status: Acute (3) Hypertension: Status: Acute (4) Fibromyalgia: Status: Acute (5) Diabetes mellitus, type II: Status: Acute (6) Hypoxemia: Status: Acute (7) Acute dyspnea: Status: Acute Plan 66 year old female with PMH of HTN , DM COVID 19 , Sleep Apnea, morbid obesity came in with C/O worsening SOB as well as non productive cough. Assessment : # Pneumonia: came in with C/O worsening SOB as well as non productive cough. Xray chest : B/L Extensive infiltrates rt >lt White blood cell count has increased to 20 Procalcitonin: 9.78 1 out of 4 blood cultures positive for staph epidermidis, possible contaminant, will repeat blood cultures, Pro-Reinaldo, CRP, ESR, no murmur heard on exam Follow Sputum Gram stain and culture Urine legionella antigen : Negative MRSA PCR: Negative proBNP:[id number] ABG: Monitor xary chest: 2D echo: DUO NEbs Supplemental Oxygen as needed Continue cefepime, I have added azithromycin today for atypical coverage Vancomycin has been discontinued Anti Tussives #DM : LDSSI Monitor FSG Carbohydrate consistent diet #ANITRA ON CKD Likely Prerenal Was on gentle I.V Hydration Monitor BMP Avoid usual nephrotoxics #Code Status : Full code # DVT PPX: on lovenox Attestations Medical Necessity Statement*: Patient requires hospitalization due to pneumonia Coding Level of Care Code Acute Director Of District Office for [facility] [place] Diagnoses Pneumonia J18.9 ANITRA (acute kidney injury) N17.9 Hypertension I10 Fibromyalgia M79.7 Diabetes mellitus, type II E11.9 Hypoxemia R09.02 Acute dyspnea R06.00
[2021-11-25 12:35] LABS: C Reactive Protein 254.1 mg/L (0.0-4.9)
[2021-11-25 12:49] LABS: Erythrocyte Sedimentation Rate 74 mm/hr (0-15)
[2021-11-25 17:10] LABS: Glucose Point of Care 121 mg/dL (70-110)
[2021-11-25] MEDS: enoxaparin 40 mg/0.4 mL Syringe SUBCUT (21:59)
[2021-11-26] VITALS (11 sets, daily range): BP systolic 120–143; BP diastolic 75–84; PULSE 67–84; RESP 16–18; TEMP 36.7–37.4; O2SAT 86–98
[2021-11-26] MEDS: guaiFENesin-dextromethorphan UDC 10 mL 5 ML PO ×2 (01:07→12:35)
[2021-11-26] MEDS: HYDROcodone-acetaminophen 5-325 mg Tablet 1 TAB PO ×3 (03:01→14:09)
[2021-11-26] MEDS: gabapentin 400 mg Capsule 800 MG PO ×3 (03:01→14:10)
[2021-11-26] MEDS: ipratropium-albuterol 3 mL Neb INHALATION ×2 (03:22→08:10)
[2021-11-26 04:01] LABS: Basophils # 0.1 10^3/uL (0.0-0.1); Basophils % 0.3 %; Eosinophils # 0.1 10^3/uL (0.0-0.8); Eosinophils % 0.7 %; Hematocrit 32.3 % (37.0-47.0); Hemoglobin 10.7 g/dL (11.5-15.3); Mean Corpuscular HGB Conc 33.1 g/dL (30.0-36.0); Mean Corpuscular Hemoglobin 32.3 pg (28.0-34.0); Mean Corpuscular Volume 97.6 fl (81-99); Mean Platelet Volume 11.5 fL (7.4-10.4); Monocytes # 0.7 10^3/uL (0.2-0.9); Monocytes % 3.7 %; Neutrophils # 13.76 10^3/uL (1.8-7.7); Neutrophils % 77.8 %; Nucleated Red Blood Cells % 0 %; Platelet Count 208 10^3/cmm (130-400); Red Blood Count 3.31 10^6/uL (4.1-5.3); Red Cell Distribution Width 13.6 % (12.1-15.1); White Blood Count 17.7 10^3/uL (4.0-10.0)
[2021-11-26 04:18] LABS: Slide Review Slide Review Perform
[2021-11-26 04:22] LABS: Anion Gap 14.6 (5-19); Blood Urea Nitrogen 17 mg/dL (8-23); Calcium 9.1 mg/dL (8.5-10.5); Carbon Dioxide 22 mmol/L (22-29); Chloride 104 mmol/L (98-107); Glomerular Filtration Rate 99.4 mL/min (90-130); Glucose 111 mg/dL (65-115); Osmolality Calculated 284 mOsm/kg (285-295); Potassium 4.6 mmol/L (3.5-5.1); Sodium 136 mmol/L (136-145)
[2021-11-26 08:04] LABS: Glucose Point of Care 89 mg/dL (70-110)
[2021-11-26 08:04] LABS: Glucose Point of Care 82 mg/dL (70-110)
[2021-11-26] MEDS: cefepime 2,000 MG in sodium chloride 0.9% (plus) 50 ML 100 MG IV (08:10)
[2021-11-26] MEDS: azithromycin 500 MG in sodium chloride 0.9% 250 ML 250 MG IV (09:57)
[2021-11-26 11:37] LABS: Glucose Point of Care 126 mg/dL (70-110)
--- NOTE | 2021-11-26 12:51 | P.DS_ITS ---
Discharge Providers Date of Admission: 11/23/21 13:40 Date of Discharge: November 26, 2021 Attending Provider at Admission: Yuan Ellison MD Attending Provider at Discharge: Miguel Moreno MD Diagnoses at Discharge Discharge Diagnosis (1) Pneumonia: Status: Acute (2) ANITRA (acute kidney injury): Status: Acute (3) Hypertension: Status: Acute (4) Fibromyalgia: Status: Acute (5) Diabetes mellitus, type II: Status: Acute (6) Hypoxemia: Status: Acute (7) Acute dyspnea: Status: Acute Reason for Visit Reason for Visit: RESPIRATORY DISTRESS Brief History: Aiyana Sorto is a 66 year old female with PMH of HTN , DM COVID 19 , Sleep Apnea, morbid obesity came in with C/O worsening SOB as well as non productive cough started this morning, and since then has progressively worsened. Hospital Course Hospital Course Patient admitted to hospital further evaluation and management of altered mental status secondary to hypoxia, polypharmacy from multiple pain medications in setting of ANITRA secondary to pneumonia. She was started on broad-spectrum antibiotics and gentle IV hydration. Sputum culture from admission, MRSA swab remain negative. Blood culture from admission 1 out of 4 bottles were positive for Staphylococcus epidermidis which is most likely contaminant. Repeat blood cultures from 11/25 so far negative. Antibiotics were tailored as per the culture results. Her ANITRA resolved. During hospitalization she was complaining of diarrhea for which C. difficile was ruled out. Patient has been back to room air for more than 24 hours. Home oxygen evaluation has been done. She is been discharged hemodynamically stable condition on oral cefpodoxime and azithromycin for next 1 week. Patient is allergic to penicillin and Levaquin. She is advised to continue taking her inhalers as prescribed. She is advised to follow with the primary care provider in the next 1 week. Physical Exam Const: COMMON NORMALS: no acute distress and patient oriented x3 HENMT: COMMON NORMALS: normocephalic, atraumatic, hearing grossly normal bilaterally and external ears normal HEAD & SCALP: normocephalic and atraumatic EXTERNAL EAR: Yes external ears normal Eye: COMMON NORMALS: no scleral icterus GENERAL EYE: appearance normal, both eyes and all related structures Chest: COMMONS NORMALS: normal inspection of the chest and normal palpation of entire chest wall CHEST: Yes Symmetrical chest wall rise Resp: COMMON NORMALS: normal respiratory effort, No retractions, No use of accessory muscles and clear to auscultation bilaterally EFFORT & INSPECTION: Yes symmetric chest movement AUSCULTATION: clear to auscultation bilaterally OTHER: B/L Crackles Present in both lungs jasso Cardio: COMMON NORMALS: regular rate, regular rhythm, S1 normal heart sound present, S2 normal heart sound present, No gallops present (Cardio), No murmurs present (Cardio), No rub (Cardio) and Peripheral pulses 2+ throughout RATE: regular rate RHYTHM: regular rhythm HEART SOUNDS: S1 normal heart sound present and S2 normal heart sound present PERIPHERAL PULSES: Peripheral pulses 2+ throughout GI: COMMON NORMALS: Normal to inspection, nondistended, normoactive bowel sounds present, Soft to palpation, non-tender, No hepatosplenomegaly present and no masses AUSCULTATION: Yes normoactive bowel sounds PALPATION: Yes Soft to palpation and Yes No hepatosplenomegaly present RECTAL EXAM: deferred Extremity: COMMON NORMALS: no clubbing, cyanosis or edema and no pedal edema Neuro: COMMON NORMALS: patient oriented x3 Psych: COMMON NORMALS: mental status grossly normal Urinary Catheter Management: Sloan Latex Free: Cath Placed During This Visit: yes, but has since been removed by the nurse Reason for Continuing Indwelling Catheter: Decision to DC Catheter Urinary Catheter Date of Insertion: 11/24/21 Urinary Catheter Time of Insertion: 04:50 Date Urinary Catheter Removed: 11/26/21 Time Urinary Catheter Discontinued: 12:34 Discharge Data Studies Completed and Pending Completed Studies During Hospitalization Category Date Time Status XR chest 1V portable [id number] Stat Exams 11/23/21 12:43 Completed CV. echo complete* [id number] Routine Ultrasound 11/24/21 09:27 Completed Pending at discharge Category Date Time Status Modified barium swallow [FL barium swallow modifd [id number] Exams 11/26/21 11:47 Ordered ] Routine ABG FULL [Arterial Blood Gas Full] Stat Lab 11/23/21 13:15 Received Blood Culture Routine Lab 11/23/21 12:55 Results Blood Culture Stat Lab 11/25/21 12:32 Results Sputum Culture and Gram Stain Routine Lab 11/23/21 18:11 Uncollected Radiology Impressions Chest X-Ray 11/23/21 12:43 IMPRESSION: 1. Bilateral pulmonary infiltrates most marked on the right. This would suggest active pneumonia. Microbiology 11/25/21 12:32 Blood Blood Culture - Preliminary NEGATIVE TO DATE 11/25/21 12:27 Blood Blood Culture - Preliminary NEGATIVE TO DATE 11/25/21 13:24 Stool - Stool Aspirate C.difficile Toxin B Gene (PCR) - Final 11/23/21 12:55 Blood Blood Culture - Preliminary Staphylococcus epidermidis 11/23/21 12:55 Blood Blood Culture - Preliminary NEGATIVE TO DATE 11/24/21 05:05 Nose MRSA Culture - Final 11/24/21 05:03 Urine Catheterized Legionella Urinary Antigen - Final Laboratory Results WBC 17.7 10^3/uL (4.0-10.0) H 11/26/21 03:38 RBC 3.31 10^6/uL (4.1-5.3) L 11/26/21 03:38 Hgb 10.7 g/dL (11.5-15.3) L 11/26/21 03:38 Hct 32.3 % (37.0-47.0) L 11/26/21 03:38 MCV 97.6 fl (81-99) 11/26/21 03:38 MCH 32.3 pg (28.0-34.0) 11/26/21 03:38 MCHC 33.1 g/dL (30.0-36.0) 11/26/21 03:38 RDW 13.6 % (12.1-15.1) 11/26/21 03:38 Plt Count 208 10^3/cmm (130-400) 11/26/21 03:38 MPV 11.5 fL (7.4-10.4) H 11/26/21 03:38 Neut % (Auto) 77.8 % 11/26/21 03:38 Lymph % (Auto) 17.0 % 11/26/21 03:38 Dickson % (Auto) 3.7 % 11/26/21 03:38 Eos % (Auto) 0.7 % 11/26/21 03:38 Baso % (Auto) 0.3 % 11/26/21 03:38 Neut # (Auto) 13.76 10^3/uL (1.8-7.7) H 11/26/21 03:38 Lymph # (Auto) 3.0 10^3/uL (0.8-4.8) 11/26/21 03:38 Dickson # (Auto) 0.7 10^3/uL (0.2-0.9) 11/26/21 03:38 Eos # (Auto) 0.1 10^3/uL (0.0-0.8) 11/26/21 03:38 Baso # (Auto) 0.1 10^3/uL (0.0-0.1) 11/26/21 03:38 Nucleated RBC % (auto) 0 % 11/26/21 03:38 Total Counted 100 (0-100) 11/23/21 12:55 Atypical Lymphs % 2.0 % (0-5) 11/23/21 12:55 Absolute Neutrophils 3.0 10^3/cmm (1.4-6.5) 11/23/21 12:55 Segmented Neutrophils 34 % 11/23/21 12:55 Abs Segm Neuts (Man) 1.5 10/cmm (1.6-7.1) L 11/23/21 12:55 Band Neutrophils 34.0 % 11/23/21 12:55 Abs Band Neuts (Man) 1.5 10^3/cmm (0.0-1.2) H 11/23/21 12:55 Absolute Lymphocytes 1.1 10^3/cmm (1.2-3.4) L 11/23/21 12:55 Lymphocytes (Manual) 23 % 11/23/21 12:55 Monocytes (Manual) 2.0 % 11/23/21 12:55 Absolute Monocytes 0.1 10^3/cmm (0.1-0.6) 11/23/21 12:55 Eosinophils (Manual) 0 % 11/23/21 12:55 Absolute Eosinophils 0.0 10^3/cmm (0.0-0.7) 11/23/21 12:55 Basophils (Manual) 0.0 % 11/23/21 12:55 Absolute Basophils 0.0 10^3/cmm (0.0-0.2) 11/23/21 12:55 Metamyelocytes 5.0 % 11/23/21 12:55 Nucleated RBCs # 0.0 /100WBC 11/26/21 03:38 Platelet Estimate Normal (Normal) 11/23/21 12:55 ESR 74 mm/hr (0-15) H 11/25/21 03:25 Sodium 136 mmol/L (136-145) 11/26/21 03:38 Potassium 4.6 mmol/L (3.5-5.1) 11/26/21 03:38 Chloride 104 mmol/L (98-107) 11/26/21 03:38 Carbon Dioxide 22 mmol/L (22-29) 11/26/21 03:38 Anion Gap 14.6 (5-19) 11/26/21 03:38 BUN 17 mg/dL (8-23) 11/26/21 03:38 Creatinine 0.6 mg/dL (0.5-0.9) 11/26/21 03:38 GFR Calculation 99.4 mL/min (90-130) 11/26/21 03:38 Glucose 111 mg/dL (65-115) 11/26/21 03:38 POC Glucose 126 mg/dL (70-110) H 11/26/21 11:06 Calculated Osmolality 284 mOsm/kg (285-295) L 11/26/21 03:38 Lactic Acid 1.9 mmol/L (0.5-2.2) 11/24/21 05:05 Calcium 9.1 mg/dL (8.5-10.5) 11/26/21 03:38 Troponin T Baseline 10 ng/L (0-10) 11/23/21 12:55 Troponin T 120 Minute 8.51 ng/L (0-10) 11/23/21 15:00 Delta Troponin T -1.49 ABS# (0-10) L 11/23/21 15:00 Troponin T Hi Sens 6Hr 7.38 ng/L (0-10) 11/23/21 19:09 Troponin T Hi Sens 6Hr Delta Not Reportable 11/23/21 19:09 C-Reactive Protein 254.1 mg/L (0.0-4.9) H 11/25/21 03:25 NT-Pro-B Natriuret Pep 2270 pg/mL (0-125) H 11/23/21 12:55 Procalcitonin 1.50 ng/mL (0-0.5) H 11/25/21 03:25 TSH 1.52 uIU/mL (0.27-4.20) 11/25/21 03:25 Nasal Influ A H1 2008 PCR Not detected (NOT DETECT) 11/23/21 12:56 Coronavirus 229E (PCR) Not detected (NOT DETECT) 11/23/21 12:56 Influenza A (H1) PCR Not detected (NOT DETECT) 11/23/21 12:56 Influenza A (H3) PCR Not detected (NOT DETECT) 11/23/21 12:56 Influenza Type A (PCR) Not detected (NOT DETECT) 11/23/21 12:56 Influenza Type B (PCR) Not detected (NOT DETECT) 11/23/21 12:56 SARS-CoV-2 (PCR) Not detected (NOT DETECT) 11/23/21 12:56 Vitals Last Vital Signs Temp 98.2 F 11/26/21 10:53 Pulse 78 11/26/21 10:53 Resp 18 11/26/21 10:53 BP 143/84 11/26/21 10:53 Pulse Ox 91 11/26/21 10:53 Discharge Plan Discharge Patient Disposition: Home Condition: Stable Prescriptions: New cefpodoxime 200 mg tablet 200 mg PO Q12H 7 Days Qty: 14 0RF Rx Instructions: must administer with a meal/food azithromycin 500 mg tablet 500 mg PO DAILY 7 Days Qty: 9 0RF fluticasone propion-salmeterol [Advair Diskus] 100-50 mcg/dose blister with device 1 inh inhalation DAILY Qty: 60 0RF Continued celecoxib 200 mg capsule 200 mg PO BID 0RF hydrocodone-acetaminophen 5-325 mg tablet 5 - 325 tab PO QID 0RF hydromorphone 2 mg tablet 2 mg PO QID 0RF gabapentin 800 mg Tablet 800 mg PO QID 0RF morphine 15 mg tablet extended release 15 mg PO BID 0RF insulin aspart U-100 [Novolog Flexpen U-100 Insulin] 100 unit/mL (3 mL) i nsulin pen See Protocol unit SUBCUT DAILY 0RF Protocol: Insulin Corrective High-Dose Regimen Condition: Fingerstick Blood Glucose Dose/Route: Insulin Units Condition: 141-180 mg/dl Dose/Route: 6 units/SQ Condition: 181-220 mg/dl Dose/Route: 8 units/SQ Condition: 221-260 mg/dl Dose/Route: 10 units/SQ Condition: 261-300 mg/dl Dose/Route: 12 units/SQ Condition: 301-350 mg/dl Dose/Route: 14 units/SQ Condition: 351-400 mg/dl Dose/Route: 16 units/SQ Condition: greater than 400 mg/dl Dose/Route: 18 units/SQ Rx Instructions: sliding scale up to 5 units diphenoxylate-atropine 2.5-0.025 mg Tablet 1 - 2 tab PO QID 0RF promethazine 25 mg Tablet 25 mg PO QID PRN (Reason: Allergy Symptoms) 0RF MediHoney (honey) 100 % Paste See Rx Instructions .ROUTE .COMPLEX 0RF Rx Instructions: 1 applic topically every other day or prn Changed lisinopril 5 mg Tablet 10 mg PO QAM Qty: 0 0RF Discharge Orders: Discharge Order (Routine); Ordered 11/26/21 Ordered By: Miguel Moreno Referrals: [facility] [Outside] Discharge Diet: Usual diet Discharge Activity: Resume usual activity and Increase activity as tolerated Patient Instructions: Opioid Safety Activity Restrictions/Additional Instructions: Follow-up with your primary care provider within next 1 week. You will be on antibiotics cefpodoxime and azithromycin for next 1 week. Please continue take inhalers as described in detail for next 15 days. Please try to follow-up with the pain clinic physician because of multiple high- dose pain medications. Discharge Attestations Time Spent in Discharge Care*: greater than 30 min Specific Discharge Activities: educating patient, discussing with pcp/other providers, discussing with complex case manager/social workers/dc planners, documenting/other paperwork and evaluating patient/reviewing data Status at Discharge: Cognitive status at discharge: cognitively intact , Behavioral status at discharge: cooperative , Functional status at discharge: uses cane/walker , Overall status at discharge: patient is progressing back to baseline Quality Metrics Clinical Quality Measures [ No reported AMI, CVA or VTE this stay] Coding Level of Care Code Acute Chg DC note Diagnoses Pneumonia J18.9 ANITRA (acute kidney injury) N17.9 Hypertension I10 Fibromyalgia M79.7 Diabetes mellitus, type II E11.9 Hypoxemia R09.02 Acute dyspnea R06.00
== END 2021-11-26 14:47 | disposition home or self-care (01) | DRG 194 ==
LOC: ER 14:44 → MEDSURG 15:40
PROVIDERS: Family Medicine; Admitting Provider Internal Medicine; Emergency Provider Emergency Medicine; Visit Provider Student in an Organized Health Care Education/Training Program
DX: J18.9 Pneumonia, unspecified organism (principal); N17.9 Acute kidney failure, unspecified; E11.22 Type 2 diabetes mellitus with diabetic chronic kidney disease; I12.9 Hypertensive chronic kidney disease with stage 1 through stage 4 chronic kidney disease, or unspecified chronic kidney disease; N18.9 Chronic kidney disease, unspecified; Z86.16 Personal history of COVID-19; G47.30 Sleep apnea, unspecified; E66.01 Morbid (severe) obesity due to excess calories; Z68.36 Body mass index [BMI] 36.0-36.9, adult; F32.A Depression, unspecified; R19.7 Diarrhea, unspecified; M79.7 Fibromyalgia; Z88.1 Allergy status to other antibiotic agents; Z88.0 Allergy status to penicillin; Z79.891 Long term (current) use of opiate analgesic; Z79.4 Long term (current) use of insulin
CPT/HCPCS: 36415; 36416; 36600; 51702; 71045; 80048; 80051; 82330; 82805; 82962; 83605; 83880; 84145; 84443; 84484; 85007; 85025; 85651; 86140; 87040; 87150; 87205; 87449; 87493; 87631; 87635; 87641; 93005; 93306; 94640; 96365; 96367; 96372; 96375; 99285; J0456; J0692; J0696; J1650; J1815; J1940; J2270; J3370; J7030; J7050

== ENCOUNTER 2022-02-12 07:43 | Outpatient (CLI) | payer MEDICARE, SELFPAY ==
--- NOTE | 2022-02-12 07:58 | XR_ITS ---
WS: [id number] Exam: XR lumbar spine 2-3V* [id number] Date/Time of Exam: 02/12/2022 8:07 AM Reason For Exam: SPINAL STENOSIS, LUMBAR REGION W/NEUROGENIC CLAUDICATION No acute fracture or dislocation. Degenerative vacuum disks at the L3-4, L4-5 and L5-S1. Degenerative thinning of the L1-2 disc. Spondylosis noted. Levoscoliosis. Facet arthropathy at all levels. Large posterior osteophytes are noted at the L3-4 disc level and might cause some spinal canal stenosis. Mi ld degenerative anterolisthesis of L4 on L5 with about 5 mm forward movement of L4. Large amount bam ined stool in the colon. XR/XR lumbar spine 2-3V* [id number] IMPRESSION: 1. Moderately advanced degenerative changes and levoscoliosis. 2. No acute fracture or malalignment. 3. Prominent posterior osteophytes projecting from the lower endplate of L3 and the upper plate of L4 that might cause significant spinal canal stenosis at th is level. Further workup with MRI or CT might be considered if thought to be cl inically warranted.
--- NOTE | 2022-02-12 07:58 | MR_ITS ---
WS: [id number] MRI LUMBAR SPINE NONCONTRAST TECHNIQUE: Sagittal T1, T2 and STIR imaging. Axial T1 and T2 imaging. Gadolinium not administered due to inability to establish IV access. CLINICAL INFORMATION: SPINAL STENOSIS/LUMBAR REGION W/NEUROGENIC CLAUDICATION COMPARISON: None. FINDINGS: Mild lumbar curve. No acute compression. Schmorl's nodes in the lumbar spine. Disc bulging worse at L1-L2, L3-L4, L4-L5. No acute compression fractures. Mild central canal stenosis in cervical spine full stack php developer imaging at C3-C6. This can be further evaluated w ith cervical spine MRI. L1-L2: Mild annular bulging. Slight narrowing of the RIGHT subarticular recess. Mild facet arthropath y. Spinal canal and foramen are patent. L2-L3: Mild annular bulging. Mild facet arthropathy. Mild bilateral foraminal narrowing. L3-L4: Shallow broad-based central disc protrusion. Mild central canal stenosis. Impingement on the t raversing RIGHT greater than LEFT L4 nerve roots. Moderate facet arthropathy. Moderate RIGHT and mild LEFT foraminal narrowing. L4-L5: Mild annular bulging with endplate ridging. Mild central canal stenosis. Impingement on the tr aversing L5 nerve roots. Moderate facet arthropathy. Moderate RIGHT greater than LEFT bony foraminal narrowing. L5-S1: Disc osteophyte complex with endplate ridging eccentric to the LEFT. Encroachment on the far e xiting LEFT L5 nerve root. Spinal canal is patent. Moderate facet arthropathy. Visualized pelvic bony structures: Normal. Paravertebral soft tissues: Normal. MR/MR lumbar spine wo con* [id number] IMPRESSION: 1. Mild lumbar curve. No acute compression. 2. Moderate central canal stenosis L3-L4 and mild central canal stenosis L4-L5 . 3. Impingement on the RIGHT L3-L4 subarticular recess and traversing RIGHT L4 nerve root. 4. Moderate RIGHT L3-L4 foraminal narrowing impinges the exiting RIGHT L3 nerv e root. 5. Moderate RIGHT L4-L5 foraminal narrowing with impingement on the exiting RI GHT L4 nerve root. 6. LEFT disc osteophyte complex L5-S1 contacts the far exiting LEFT L5 nerve r oot laterally. 7. Moderate facet arthropathy worse L4-L5. 8. Mild central canal stenosis in cervical spine full stack php developer imaging at C3-C6. This can be further evaluated with cervical spine MRI.
== END 2022-02-12 07:44 | disposition home or self-care (01) ==
LOC: RAD 07:43
PROVIDERS: Visit Provider Physical Medicine & Rehabilitation
DX: M48.062 Spinal stenosis, lumbar region with neurogenic claudication (principal); M41.86 Other forms of scoliosis, lumbar region; M48.061 Spinal stenosis, lumbar region without neurogenic claudication; M25.78 Osteophyte, vertebrae; M47.816 Spondylosis without myelopathy or radiculopathy, lumbar region
CPT/HCPCS: 72100; 72148

== ENCOUNTER → 2022-08-10 16:15 | Outpatient (BNVA) | payer MEDICARE, SELFPAY | PROVIDERS: Visit Provider Nurse Practitioner | DX: R05.9 Cough, unspecified (principal) | CPT/HCPCS: 71046 ==

== ENCOUNTER → 2023-04-10 08:35 | Outpatient (BNVA) | payer MEDICARE, SELFPAY | PROVIDERS: PCP Family Medicine; Visit Provider Orthopaedic Surgery | DX: M48.062 Spinal stenosis, lumbar region with neurogenic claudication (principal); M41.86 Other forms of scoliosis, lumbar region; M51.36 Other intervertebral disc degeneration, lumbar region | CPT/HCPCS: 72100; 99204 ==

== ENCOUNTER 2023-04-25 13:42 | Outpatient (CLI) | payer MEDICARE, SELFPAY ==
[2023-04-25 14:39] LABS: Basophils % 0.3 %; Eosinophils # 0.3 10^3/uL (0.0-0.8); Eosinophils % 2.3 %; Hematocrit 38.2 % (36-47); Lymphocytes # 5.1 10^3/uL (0.8-4.8); Lymphocytes % 44.9 %; Mean Corpuscular HGB Conc 32.2 g/dL (30-55); Mean Corpuscular Hemoglobin 32.5 pg (27-33); Mean Corpuscular Volume 100.8 fl (85-98); Mean Platelet Volume 10.9 fL (7.4-10.4); Monocytes # 0.7 10^3/uL (0.2-0.9); Monocytes % 6.1 %; Neutrophils # 5.26 10^3/uL (1.8-7.7); Neutrophils % 46.1 %; Nucleated Red Blood Cells % 0 %; Platelet Count 292 10^3/cmm (157-399); Red Blood Count 3.79 10^6/uL (3.85-5.65); Red Cell Distribution Width 13.4 % (12.1-15.1); White Blood Count 11.37 10^3/uL (3.29-11.43)
[2023-04-25 14:59] LABS: Add Urine Microscopic? YES; Bacteria Urine TRACE /hpf; Bilirubin Urine Neg (Negative); Blood Urine Neg (Negative); Glucose Urine UA Norm (Normal); Ketones Urine Negative (Negative); Leukocyte Esterase Urine 1+ (Negative); Nitrate Urine Negative (Negative); Protein Urine Neg (Negative); RBC Urine 0-4 /hpf (0-2); Squamous Epithelial Cell Urine 0-4 /hpf (0-5); Urine Appearance Clear (CLEAR); Urine Color Yellow (Yellow); Urobilinogen Urine Norm (Negative); WBC Urine 0-4 /hpf (0-5); pH Urine 5 (5-7)
[2023-04-25 15:04] LABS: Estmated Average Glucose 134; Hemoglobin A1C 6.3 % (4.0-6.0)
[2023-04-25 15:05] LABS: Alanine Aminotransferase 7 U/L (0-33); Alkaline Phosphatase 109 U/L (35-105); Aspartate Amino Transferase 16 U/L (0-32); Blood Urea Nitrogen 15 mg/dL (8-23); Calcium 9.5 mg/dL (8.5-10.5); Carbon Dioxide 28 mmol/L (22-29); Chloride 101 mmol/L (98-107); Globulin 3.7 g/dL (1.3-4.6); Glomerular Filtration Rate 70.9 mL/min (90-130); Glucose 107 mg/dL (65-115); Osmolality Calculated 289 mOsm/kg (285-295); Sodium 139 mmol/L (136-145); Total Bilirubin 0.3 mg/dL (0.15-1.2); Total Protein 7.7 g/dL (6.6-8.7)
[2023-04-25 15:08] LABS: Anion Gap 14.4 (5-19); Potassium 4.4 mmol/L (3.5-5.1)
== END 2023-04-25 13:43 | disposition home or self-care (01) ==
PROVIDERS: PCP Family Medicine; Visit Provider Orthopaedic Surgery
DX: M48.062 Spinal stenosis, lumbar region with neurogenic claudication (principal); M79.7 Fibromyalgia; M19.91 Primary osteoarthritis, unspecified site; I10 Essential (primary) hypertension; E11.9 Type 2 diabetes mellitus without complications; G47.30 Sleep apnea, unspecified; F32.A Depression, unspecified
CPT/HCPCS: 36415; 80053; 81001; 83036; 85025

== ENCOUNTER → 2023-04-29 14:02 | Outpatient (BNVA) | payer MEDICARE, SELFPAY | PROVIDERS: PCP Family Medicine; Visit Provider Family Medicine | DX: Z01.818 Encounter for other preprocedural examination (principal) | CPT/HCPCS: 81003 ==

== ENCOUNTER → 2023-04-30 10:48 | Outpatient (BNVA) | payer MEDICARE, SELFPAY | PROVIDERS: PCP Family Medicine; Visit Provider Family Medicine | DX: Z01.818 Encounter for other preprocedural examination (principal); R09.02 Hypoxemia; R39.9 Unspecified symptoms and signs involving the genitourinary system | CPT/HCPCS: 87077; 87086; 87184 ==

== ENCOUNTER → 2023-05-16 05:18 | Day surgery (SDC) | payer MEDICARE, SELFPAY ==
[2023-05-16] VITALS (9 sets, daily range): BP systolic 99–170; BP diastolic 57–98; PULSE 60–120; RESP 16–19; TEMP 35.9–36.3; O2SAT 92–97; BMI 39.6
--- NOTE | 2023-05-16 | XR_ITS ---
WS: [id number] C-ARM RADIOGRAPHS LUMBAR SPINE; 3 IMAGES HISTORY: IN OR - ALREADY DONE 05/16 COMPARISON: None available. Intraoperative imaging during decompressive surgery lumbar spine. Imaging obtained during marking of the sites. IMPRESSION: Intraoperative imaging during decompression surgery.
--- NOTE | 2023-05-16 06:09 | W.PM.OPSUD ---
Surgery/Procedure H&P Update DATE OF PROCEDURE: May 16, 2023 DATE H&P PERFORMED: 04/29/23 H&P UPDATE INFORMATION: I have reviewed H&P completed within last 30 days, I have examined patient prior to procedure and No changes to prior documentation PREOP DIAGNOSIS: Lumbar stenosis with neurogenic claudication PLANNED PROCEDURE: Operation Date: 05/16/23 07:00 Proposed Procedures p Lumbar Spine Decompression : bilaterally at L3-4 and L4-5 standing on the left side(Bilateral) - Sriram Issa DO
--- NOTE | 2023-05-16 06:24 | ANES.PREANE2 ---
Pre-Anesthetic Assessment Height/Weight: Height 1.57 m Weight 98.43 kg O2 Del Method O2 Flow Rate Room Air 95 05/16/23 06:14 05/16/23 06:14 Preop Diagnosis: Lumbar stenosis with neurogenic claudication Operation Date: 05/16/23 07:00 Proposed Procedures p Lumbar Spine Decompression : bilaterally at L3-4 and L4-5 standing on the left side(Bilateral) - Sriram Issa, DO Familial anesthetic complications: None Was Beta Abdoul taken within 24 hours: N/A Was Clonidine taken within 24 hours: N/A Last intake: Intake Last Liquid Date 05/15/23 Last Liquid Time 23:59 Last Solid Date 05/15/23 Last Solid Time 22:00 Social No alcohol and No tobacco Exam alert, oriented x 3, clear to auscultation bilaterally and regular rate & rhythm Airway Mallampati: Class II Dentition: other (partial) Pulmonary Sleep Apnea CV/HEM Hypertension Metabolic Diabetes Mellitus and Morbid Obesity Anesthetic Plan ASA status: 3 Anesthesia: General Risk of > 500 ml blood loss (7ml/kg in children): No Medications/Allergies Home Medications Medication Instructions Recorded Confirmed Last Taken Type gabapentin 800 mg tablet 800 mg PO QID 01/21/20 05/15/23 05/15/23 History hydrocodone 5 mg-acetaminophen 325 5 - 325 tab PO QID 01/21/20 05/16/23 05/16/23 History mg tablet 0500 hydromorphone 2 mg tablet 2 mg PO QID 01/21/20 05/16/23 05/16/23 History 0500 insulin aspart U-100 100 unit/mL See Protocol SUBCUT DAILY 01/21/20 05/15/23 05/15/23 History (3 mL) subcutaneous pen (Novolog FlexPen U-100 Insulin aspart) morphine 15 mg tablet,extended 15 mg PO BID 01/21/20 05/16/23 05/16/23 05:00 History release lisinopril 5 mg tablet 10 mg PO QAM #0 tabs 11/26/21 05/15/23 05/15/23 Rx acyclovir 400 mg tablet 400 mg PO BID 04/29/23 05/15/23 05/15/23 History fluoxetine 20 mg capsule 20 mg PO DAILY 04/29/23 05/15/23 05/15/23 History itraconazole 100 mg capsule 200 mg PO DAILY 04/29/23 05/15/23 05/15/23 History nystatin 100,000 unit/gram topical 1 applic topical BID PRN Rash 04/29/23 05/15/23 Unknown History cream cetirizine 10 mg tablet (Zyrtec) 10 mg PO DAILY 05/15/23 05/15/23 05/15/23 History Allergies Allergy/AdvReac Type Severity Reaction Status Date / Time adhesive tape Allergy Unknown ALGY-Bliste Verified 05/15/23 12:18 r erythromycin base Allergy Unknown ALGY-Rash Verified 05/15/23 12:18 formaldehyde Allergy Unknown anaphylaxis Verified 05/15/23 12:18 ketorolac Allergy Unknown ALGY-Rash Verified 05/15/23 12:18 latex Allergy Unknown ADR-Irritab Verified 05/15/23 12:18 le meperidine Allergy Unknown nausea Verified 05/15/23 12:18 NSAIDS (Non-Steroidal Allergy Unknown ADR-Abdominal Verified 05/15/23 12:18 Anti-Inflamma Pain [NSAIDS (Non-Steroidal Anti-Inflammatory Drug)] oxybutynin Allergy Unknown ADR-Faintin Verified 05/15/23 12:18 g Penicillins Allergy Unknown ALGY-Rash Verified 05/15/23 12:18 pregabalin Allergy Unknown ADV-Weaknes Verified 05/15/23 12:18 s Rrnblrw-UXP-FyD Reductase Allergy Unknown Unknown Verified 05/15/23 12:18 Inhibitor [Wbisdru-LXO-PmU Reductase Inhibitors] topiramate Allergy Unknown ADR-Diarrhe Verified 05/15/23 12:18 a zinc Allergy Unknown ALGY-Bliste Verified 05/15/23 12:18 r Januvia Allergy Unknown ADR-Diarrhe Uncoded 05/15/23 12:18 a Levaquin Allergy Unknown ADR-Muscle Uncoded 05/15/23 12:18 Pain Toprol XL Allergy Unknown Unknown Uncoded 05/15/23 12:18 [facility] Anesthesia Medical History Bipolar disorder Cataracts, bilateral Chronic UTI (urinary tract infection) Decubitus skin ulcer Depression Diabetes mellitus, type II Fibromyalgia Hypertension Osteoarthritis Sleep apnea Surgical History History of cholecystectomy History of gastric surgery History of knee replacement History of orthopedic surgery Social History Smoking and tobacco/nicotine status: never used tobacco/nicotine Data Anesthesia Cardiac Studies: Echocardiogram 11/24/21
[2023-05-16 06:28] LABS: Glucose Point of Care 124 mg/dL (70-110)
[2023-05-16] MEDS: sodium chloride 0.9% 1,000 ML 30 ML IV (06:28)
[2023-05-16] MEDS: vancomycin 1,000 MG in sodium chloride 0.9% 250 ML 250 MG IV (07:01)
[2023-05-16] MEDS: lidocaine-epi 1% 20 mL INJ INJECTION (07:34)
--- NOTE | 2023-05-16 08:32 | PM.OP ---
Operative Report Date of procedure: May 16, 2023 Pre-op diagnosis: Lumbar stenosis with neurogenic claudication Post-op diagnosis: same Procedure done: 1. L3-4 laminectomy with partial facetectomies 2. L4-5 laminectomy with partial facetectomies Surgeon: Sriram Issa DO Hospital Pharmacy Director: Mat Mercedes Hospital Pharmacy Director: The assistant operator, Mat Mercedes, STEVEN was needed for his expertise under the microscope. He was important and necessary throughout the procedure to complete in a safe and timely manner. He assisted with patient positioning prepping and draping tissue retraction suctioning of the operative field protection of the dural sac and tissue closure Estimated blood loss (mL): 10 Procedure: 1. L3-4 laminectomy with partial facetectomies 2. L4-5 laminectomy with partial facetectomies Patient is brought to the operative suite. After undergoing anesthesia they are placed in the prone position. All areas of impingement are well padded. Patient is then prepped and draped in the normal sterile fashion. A skin incision is made over the L3/4 level. This is confirmed under c-arm guidance. A series of dilators are passed and the tubular retractor is docked on the L3 lamina. A bovie is used to clear the soft tissue off the lamina and the L 3/4 facet joint. A high speed felipe is then used to perform the laminectomy and take down the medial aspect of the L 3/4 facet joint. A kerrison rongeure was then used to take down the remaining lamina and smooth the edged of the laminectomy up to the point where the ligamentum flavum attaches. Attention was then brought to the medial aspect of the facet joint. The remaining medial aspect of the superior and inferior aspect of the facet joint were taken down with the kerrison from the pedicle of L3 to L 4. The facet joint had significant hypertrophy. Attention was then brought to the Ligamentum Flavum. The ligament was taken down from the lamina of L3 to L4 and out medially to the remaining facet joint. The ligament was thick. The dura was then exposed. The dura was in good repair. The L3 nerve was then traced with a curette out the L3/4 foramen and found to be adequately decompressed. The L4 nerve was traced with a curette around the L4 pedicle. The lateral recess was opened with a kerrison helping to further decompress the L4 nerve. The tubular retractor was then tilted to the contralateral side. The bovie was used to take down the soft tissue on the spinous process. The high speed felipe was used to take down the spinous process and then the contralateral lamina of L3. The kerrison rongeur was used to take down the remaining lamina to the point where the ligamentum flavum attached and the ligamentum flavum was taken down from L3 to L4. The kerrison rongeur was then used to reach across and take down the medial aspect of the contralateral L3/4 facet joint.The currete was used to trace the contralateral L3 nerve out the L3/4 foramen to make sure it was decompressed adequatesly and the L4 was traced around the L4 pedicle. The lateral recess was opened further with the kerrison to ensure the L4 is adequately decompressed. Wound is then irrigated copiously with saline and surgiflo is used to stop any bleeding. The tubular retractor is removed and the A skin incision is made over the L4/5 level. This is confirmed under c-arm guidance. A series of dilators are passed and the tubular retractor is docked on the L4 lamina. A bovie is used to clear the soft tissue off the lamina and the L 4/5 facet joint. A high speed felipe is then used to perform the laminectomy and take down the medial aspect of the L 4/5 facet joint. A kerrison rongeure was then used to take down the remaining lamina and smooth the edged of the laminectomy up to the point where the ligamentum flavum attaches. Attention was then brought to the medial aspect of the facet joint. The remaining medial aspect of the superior and inferior aspect of the facet joint were taken down with the kerrison from the pedicle of L4 to L 5. The facet joint had significant hypertrophy. Attention was then brought to the Ligamentum Flavum. The ligament was taken down from the lamina of L4 to L5 and out medially to the remaining facet joint. The ligament was thick. The dura was then exposed. The dura was in good repair. The L4 nerve was then traced with a curette out the L4/5 foramen and found to be adequately decompressed. The L5 nerve was traced with a curette around the L5 pedicle. The lateral recess was opened with a kerrison helping to further decompress the L5 nerve. The tubular retractor was then tilted to the contralateral side. The bovie was used to take down the soft tissue on the spinous process. The high speed felipe was used to take down the spinous process and then the contralateral lamina of L4. The kerrison rongeur was used to take down the remaining lamina to the point where the ligamentum flavum attached and the ligamentum flavum was taken down from L4 to L5. The kerrison rongeur was then used to reach across and take down the medial aspect of the contralateral L4/5 facet joint.The currete was used to trace the contralateral L4 nerve out the L4/5 foramen to make sure it was decompressed adequatesly and the L5 was traced around the L5 pedicle. The lateral recess was opened further with the kerrison to ensure the L5 is adequately decompressed. Wound is then irrigated copiously with saline and surgiflo is used to stop any bleeding. The tubular retractor is removed and the wound is closed with vicryl and monocryl suture. Glue is then used to protect the wound. A sterile dressing is then placed. Patient was then placed in the supine position and transferred to the PACU in stable condition.
[2023-05-16] MEDS: HYDROcodone-acetaminophen 5-325 mg Tablet 2 TAB PO (09:11)
--- NOTE | 2023-05-16 09:30 | ANE.PACU2 ---
Inpatient post-anesthesia follow up: Airway intact: Yes Vital signs: Temperature 97.3 F Pulse Rate 72 Respiratory Rate 16 Blood Pressure 137/71 Pulse Oximetry 93 Oxygen Delivery Me thod Room Air Oxygen Flow Rate 95 Fraction of Inspir ed Oxygen Hydration adequate: Yes Nausea and vomiting: No Pain level: 1 Mental status: Baseline
== END | disposition home or self-care (01) ==
PROVIDERS: PCP Family Medicine; Visit Provider Orthopaedic Surgery
PROC: (CPT 63005; principal; 2023-05-16 07:00)
DX: M48.062 Spinal stenosis, lumbar region with neurogenic claudication (principal); I10 Essential (primary) hypertension; G47.30 Sleep apnea, unspecified; E11.9 Type 2 diabetes mellitus without complications; E66.1 Drug-induced obesity; Z68.39 Body mass index [BMI] 39.0-39.9, adult; Z79.4 Long term (current) use of insulin
CPT/HCPCS: 63047; 63048; 36416; 72020; 76000; 82962; J1100; J2371; J2405; J2704; J2710; J3010; J3370; J3490; J7030; J7050

== ENCOUNTER → 2023-05-29 14:21 | Outpatient (BNVA) | payer MEDICARE, SELFPAY | PROVIDERS: PCP Family Medicine; Visit Provider Orthopaedic Surgery | DX: Z47.89 Encounter for other orthopedic aftercare (principal) | CPT/HCPCS: 99024 ==

== ENCOUNTER → 2023-06-26 09:31 | Outpatient (BNVA) | payer MEDICARE, SELFPAY | PROVIDERS: PCP Family Medicine; Visit Provider Physician Assistant | DX: Z47.89 Encounter for other orthopedic aftercare (principal) | CPT/HCPCS: 99024 ==

== ENCOUNTER → 2023-08-08 10:48 | Outpatient (BNVA) | payer MEDICARE, SELFPAY | PROVIDERS: PCP Family Medicine; Visit Provider Orthopaedic Surgery | DX: Z47.89 Encounter for other orthopedic aftercare (principal) | CPT/HCPCS: 99024 ==

== ENCOUNTER 2023-12-17 03:35 | Emergency (ER) | payer MEDICARE, SELFPAY ==
[2023-12-17] VITALS (9 sets, daily range): BP systolic 194–253; BP diastolic 82–119; PULSE 65–72; RESP 15–18; TEMP 36.6; O2SAT 95–98; BMI 41.7
--- NOTE | 2023-12-17 03:41 | CTR_ITS ---
PROCEDURE INFORMATION: Exam: CT Maxillofacial Without Contrast Exam date and time: 12/17/2023 4:32 AM Age: 68 years old Clinical indication: Injury or trauma; Additional info: Fall trauma TECHNIQUE: Imaging protocol: Computed tomography of the face without contrast. Radiation optimization: All CT scans at this facility use at least one of these dose optimization techniques: automated exposure control; mA and/or kV adjustment per patient size (includes targeted exams where dose is matched to clinical indication); or iterative reconstruction. COMPARISON: CT facial bones wo con* [id number] 11/20/2018 1:46 PM RADIATION DOSE METRICS: Total DLP (mGy-cm): 690.7 FINDINGS: Orbital cavities: Orbits are normal. Globes are unremarkable. Paranasal sinuses: Minimal mucosal thickening of the inferior right frontal sinus. Ethmoid air cells are partially opacified. Left maxillary sinus completely opacified. Right maxillary sinus clear. Bilateral sphenoid sinuses mostly opacified. Bones: No acute fracture. Soft tissues: Large focal circumscribed hematoma of the frontal scalp measures 3.5 cm x 1.9 cm in the transaxial plane. Small subgaleal hematoma. Generalized soft tissue edema. Diffuse left periorbital soft tissue edema. Nasal soft tissue swelling. CT/CT facial bones wo con* [id number] IMPRESSION: 1. Negative for acute facial bone fracture. 2. Soft tissue injuries to the face and frontal scalp.
--- NOTE | 2023-12-17 03:41 | CTR_ITS ---
PROCEDURE INFORMATION: Exam: CT Head Without Contrast Exam date and time: 12/17/2023 4:32 AM Age: 68 years old Clinical indication: Injury or trauma; Additional info: Fall trauma TECHNIQUE: Imaging protocol: Computed tomography of the head without contrast. Radiation optimization: All CT scans at this facility use at least one of these dose optimization techniques: automated exposure control; mA and/or kV adjustment per patient size (includes targeted exams where dose is matched to clinical indication); or iterative reconstruction. COMPARISON: CT head wo con* [id number] 06/09/2019 8:29 PM RADIATION DOSE METRICS: Total DLP (mGy-cm): 1067.6 FINDINGS: Brain: There is moderate cerebral atrophy. There is mild diffuse heterogeneity of the white matter attenuation, consistent with chronic white matter ischemic changes. Negative for acute intracranial hemorrhage. Negative for midline shift the brain. Negative for mass effect on the brain. Mahan matter and white matter interfaces are unremarkable. Cerebral ventricles: No ventriculomegaly. Paranasal sinuses: Scattered opacities of the included paranasal sinuses. Mastoid air cells: Visualized mastoid air cells are well aerated. Bones: Unremarkable. No acute fracture. Soft tissues: Large circumscribed frontal scalp hematoma. Subcutaneous soft tissue edema. Nasal soft tissue swelling. Diffuse left periorbital soft tissue swelling. CT/CT head wo con* [id number] IMPRESSION: 1. Negative for intracranial injury. 2. Soft tissue injuries in the frontal scalp and face.
--- NOTE | 2023-12-17 03:41 | XRR_ITS ---
PROCEDURE INFORMATION: Exam: XR Chest Exam date and time: 12/17/2023 4:02 AM Age: 68 years old Clinical indication: Injury or trauma; Fall; Other: Pain; Additional info: Fall trauma TECHNIQUE: Imaging protocol: Radiologic exam of the chest. Views: 1 view. COMPARISON: CR XR chest 2V* [id number] 08/10/2022 4:20 PM FINDINGS: Lungs: Unremarkable. No consolidation. Pleural spaces: Unremarkable. No pleural effusion. No pneumothorax. Heart/Mediastinum: Question mild cardiomegaly. Bones/joints: Displaced fractures of the proximal left humeral neck and greater tuberosity region not well characterized. Demineralized bones. XR/XR chest 1V portable [id number] IMPRESSION: 1. Left proximal humerus fractures. 2. Negative for acute intrathoracic pathology.
--- NOTE | 2023-12-17 03:41 | XRR_ITS ---
PROCEDURE INFORMATION: Exam: XR Left Shoulder Exam date and time: 12/17/2023 4:06 AM Age: 68 years old Clinical indication: Injury or trauma; Fall; Other: Pain; Additional info: Fall trauma pain TECHNIQUE: Imaging protocol: Radiologic exam of the left shoulder. Views: 2 or more views. COMPARISON: CT Up Extremity wo LEFT* [id number] 11/20/2018 3:15 PM FINDINGS: Bones/joints: Impacted fracture of the humeral neck. Severely displaced fracture of the greater tuberosity. Inferior glenohumeral joint subluxation. Acromioclavicular alignment is normal. Osseous spurring. Demineralized bones. Soft tissues: Soft tissue swelling laterally. XR/XR shoulder LT min 2V* [id number] IMPRESSION: Left proximal humeral neck and greater tuberosity fractures with significant inferior subluxation of the glenohumeral joint.
--- NOTE | 2023-12-17 03:41 | ECG_ITS ---
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 Measurements Intervals [place] Rate: 66 P: 69 MT: 129 QRS: 48 QRSD: 87 T: 76 QT: 396 QTc: 418 Interpretive Statements SINUS RHYTHM LOW QRS VOLTAGE IN PRECORDIAL LEADS [QRS DEFLECTION < 1.0 mV IN CHEST LEADS] SEPTAL MYOCARDIAL INFARCTION , OF INDETERMINATE AGE [40+ ms Q WAVE IN V1/V2] Compared to ECG 11/23/2021 18:41:11 Myocardial infarct finding now present Electronically Signed On 12-19-2023 13:26:34 CDT by Carrington Camarena M.D. [email or web address]
--- NOTE | 2023-12-17 03:41 | CTR_ITS ---
PROCEDURE INFORMATION: Exam: CT Cervical Spine Without Contrast Exam date and time: 12/17/2023 4:32 AM Age: 68 years old Clinical indication: Injury or trauma; Fall; Additional info: Fall trauma TECHNIQUE: Imaging protocol: Computed tomography of the cervical spine without contrast. Radiation optimization: All CT scans at this facility use at least one of these dose optimization techniques: automated exposure control; mA and/or kV adjustment per patient size (includes targeted exams where dose is matched to clinical indication); or iterative reconstruction. COMPARISON: CT facial bones wo con* [id number] 12/17/2023 4:32 AM RADIATION DOSE METRICS: Total DLP (mGy-cm): 724.2 FINDINGS: Bones: The cervical spine demonstrates marked degenerative changes at multiple levels. Negative for traumatic malalignment. Negative for acute fracture. Lungs: Lung apices are normal. Soft tissues: Unremarkable. CT/CT cervical spin wo con* [id number] IMPRESSION: Negative for acute cervical spine fracture.
--- NOTE | 2023-12-17 03:43 | XRR_ITS ---
PROCEDURE INFORMATION: Exam: XR Left Elbow Exam date and time: 12/17/2023 4:14 AM Age: 68 years old Clinical indication: Injury or trauma; Fall; Other: Pain; Prior surgery; Surgery date: 6+ months; Surgery type: Arm; Additional info: Fall pain TECHNIQUE: Imaging protocol: Radiologic exam of the left elbow. Views: 3 or more views. COMPARISON: CT Up Extremity wo LEFT* [id number] 11/20/2018 3:15 PM FINDINGS: Tubes, catheters and devices: Surgical plate and screws fixate the proximal ulna with unremarkable position. Bones/joints: Negative for acute elbow region fractures. 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 Diffuse osseous demineralization. Negative for elbow joint effusion. Soft tissues: Normal. XR/XR elbow LT min 3V* [id number] IMPRESSION: Negative for acute left elbow region fractures.
--- NOTE | 2023-12-17 03:45 | ED_ITS ---
Documented by User: Chavez Nair DO 12/17/23 03:50 HPI - Fall 2 General: Chief Complaint: Fall Stated Complaint: fall, fx arm Time Seen by Provider: 12/17/23 03:41 History of Present Illness: Patient presents to the ER by [facility]. Patient stated she was up around 2:00 being takes medicine when she fell from a standing position. Patient hit her head and has left shoulder pain. Patient did not lose consciousness. Patient has no visual, hearing deficits, denies nausea vomiting, EMS gave her 100 mcg of fentanyl IV and then 2 nebulizers of 100 mg of ketamine each on the way here. Patient is not on any blood thinners. Review of Systems 2 General: Reports: 10 or more systems reviewed and unremarkable except in HPI and below PFSH ED 2 PFSH: Medical History Decubitus skin ulcer Cataracts, bilateral Sleep apnea Hypertension Diabetes mellitus, type II Osteoarthritis Chronic UTI (urinary tract infection) Fibromyalgia Depression Bipolar disorder Surgical History History of gastric surgery History of cholecystectomy History of knee replacement History of orthopedic surgery Social History Smoking and tobacco/nicotine status: never used tobacco/nicotine Physical Exam 2 Const: COMMON NORMALS: no acute distress, average body habitus, patient oriented x3, no limitations, healthy appearing, alert and well nourished HENMT: COMMON NORMALS: normocephalic, hearing grossly normal bilaterally, external ears normal, Normal external nose present and moist oral mucous membranes; head/scalp not atraumatic (Very large hematoma forehead) HEAD & SCALP: n ormocephalic; not atraumatic (Very large hematoma forehead) NOSE: Normal external nose present EXTERNAL EAR: Yes external ears normal Eye: COMMON NORMALS: Equal, round and reactive pupils present, EOMs intact bilaterally, conjunctivae normal and no scleral icterus CONJUNCTIVA: Yes conjunctivae normal PUPIL: Yes Equal, round and reactive pupils present Neck/C-Spine: COMMON NORMALS: full ROM, no lymphadenopathy, supple, no meningeal signs, no JVD and Thyroid normal THYROID: Thyroid normal Chest: COMMONS NORMALS: normal inspection of the chest and normal palpation of entire chest wall Resp: COMMON NORMALS: normal respiratory effort, No retractions, No use of accessory muscles and clear to auscultation bilaterally AUSCULTATION: clear to auscultation bilaterally Cardio: COMMON NORMALS: no JVD, regular rate, regular rhythm, S1 normal heart sound present, S2 normal heart sound present, No gallops present (Cardio), No clicks present (Cardio), No murmurs present (Cardio) and No rub (Cardio) R ATE: regular rate RHYTHM: regular rhythm HEART SOUNDS: S1 normal heart sound present and S2 normal heart sound present GI: COMMON NORMALS: Normal to inspection, nondistended, normoactive bowel sounds present, Soft to palpation, non-tender, No hepatosplenomegaly present and no masses PALPATION: Yes Soft to palpation and Yes No hepatosplenomegaly present Extremity: NARRATIVE EXTREMITY EXAM: There are pain with palpation of left proximal humerus region, no pain with palpation of the elbow or clavicle. There is step-off noted with crepitus over the humerus. Patient is in a sling currently. Patient is neurovascularly intact. Neuro: COMMON NORMALS: patient oriented x3 SENSORIUM/ORIENTATION: Yes alert MENINGEAL SIGNS: Yes no meningeal signs Course 2 Vital Signs: Vital signs: Vital Signs Temperature 97.8 F 12/17/23 03:38 Pulse Rate 68 12/17/23 07:17 Respiratory Rate 18 12/17/23 08:13 Blood Pressure 194/82 12/17/23 07:28 Pulse Oximetry 98 12/17/23 08:28 Oxygen Delivery Me thod Room Air 12/17/23 08:28 MDM - Fall Medical Records I reviewed the patient's medical records. Lab Data I reviewed the patient's lab results. 12/17/23 03:54 12/17/23 03:54 Radiology Impressions Cervical Spine CT 12/17/23 03:41 IMPRESSION: Negative for acute cervical spine fracture. Chest X-Ray 12/17/23 03:41 IMPRESSION: 1. Left proximal humerus fractures. 2. Negative for acute intrathoracic pathology. Face CT 12/17/23 03:41 IMPRESSION: 1. Negative for acute facial bone fracture. 2. Soft tissue injuries to the face and frontal scalp. Head CT 12/17/23 03:41 IMPRESSION: 1. Negative for intracranial injury. 2. Soft tissue injuries in the frontal scalp and face. Shoulder X-Ray 12/17/23 03:41 IMPRESSION: Left proximal humeral neck and greater tuberosity fractures with significant inferior subluxation of the glenohumeral joint. Elbow X-Ray 12/17/23 03:43 IMPRESSION: Negative for acute left elbow region fractures. Shoulder CT 12/17/23 05:28 IMPRESSION: 1. Severely comminuted and impacted fracture deformity of the proximal left humerus which involves the humeral neck, lesser tuberosity and greater tuberosity. 2. There is significant inferior subluxation of the humeral head relative to the glenoid. 3. Large lipohemarthrosis of the glenohumeral joint space apparent. Laboratory Results WBC 14.72 10^3/uL (3.29-11.43) H 12/17/23 03:54 RBC 3.79 10^6/uL (3.85-5.65) L 12/17/23 03:54 Hgb 11.10 g/dL (11.27-16.99) L 12/17/23 03:54 Hct 35.1 % (36-47) L 12/17/23 03:54 MCV 92.6 fl (85-98) 12/17/23 03:54 MCH 29.3 pg (27-33) 12/17/23 03:54 MCHC 31.6 g/dL (30-55) 12/17/23 03:54 RDW 16.4 % (12.1-15.1) H 12/17/23 03:54 Plt Count 328 10^3/cmm (157-399) 12/17/23 03:54 MPV 10.3 fL (7.4-10.4) 12/17/23 03:54 Neut % (Auto) 66.3 % 12/17/23 03:54 Lymph % (Auto) 27.4 % 12/17/23 03:54 Mcleod % (Auto) 4.8 % 12/17/23 03:54 Eos % (Auto) 0.9 % 12/17/23 03:54 Baso % (Auto) 0.2 % 12/17/23 03:54 Neut # (Auto) 9.75 10^3/uL (1.8-7.7) H 12/17/23 03:54 Lymph # (Auto) 4.0 10^3/uL (0.8-4.8) 12/17/23 03:54 Mcleod # (Auto) 0.7 10^3/uL (0.2-0.9) 12/17/23 03:54 Eos # (Auto) 0.1 10^3/uL (0.0-0.8) 12/17/23 03:54 Baso # (Auto) 0.0 10^3/uL (0.0-0.1) 12/17/23 03:54 Nucleated RBC % (auto) 0 % 12/17/23 03:54 Nucleated RBCs # 0.0 /100WBC 12/17/23 03:54 PT 12.60 SECONDS (12.1-14.9) 12/17/23 03:54 INR 0.92 (0.8-1.2) 12/17/23 03:54 Sodium 137 mmol/L (136-145) 12/17/23 03:54 Potassium 3.9 mmol/L (3.5-5.1) 12/17/23 03:54 Chloride 100 mmol/L (98-107) 12/17/23 03:54 Carbon Dioxide 24 mmol/L (22-29) 12/17/23 03:54 Anion Gap 16.9 (5-19) 12/17/23 03:54 BUN 14 mg/dL (8-23) 12/17/23 03:54 Creatinine 0.6 mg/dL (0.5-0.9) 12/17/23 03:54 GFR Calculation 98.8 mL/min (90-130) 12/17/23 03:54 Glucose 159 mg/dL (65-115) H 12/17/23 03:54 Calculated Osmolality 288 mOsm/kg (285-295) 12/17/23 03:54 Calcium 8.9 mg/dL (8.5-10.5) 12/17/23 03:54 Total Bilirubin 0.2 mg/dL (0.15-1.2) 12/17/23 03:54 AST 14 U/L (0-32) 12/17/23 03:54 ALT 8 U/L (0-33) 12/17/23 03:54 Alkaline Phosphatase 102 U/L (35-105) 12/17/23 03:54 Total Protein 7.2 g/dL (6.6-8.7) 12/17/23 03:54 Albumin 3.6 g/dL (3.5-5.2) 12/17/23 03:54 Globulin 3.6 g/dL (1.3-4.6) 12/17/23 03:54 All radiology interpretation(s) finalized by discharge EKG Data EKG 1: I personally reviewed and interpreted this EKG as follows: EKG interpretation date: 12/17/23 EKG interpretation time: 03:47 Interpretation: Ventricular rate 66 bpm, MN interval 129, QRS duration 87, QTc of 410, sinus rhythm Discharge Plan Discharge Patient Disposition: Home Clinical Impression: Fracture of head of left humerus, Facial hematoma, Traumatic tear of left rotator cuff Condition: Stable Prescriptions: No Action acyclovir 400 mg tablet 400 mg PO BID nystatin 100,000 unit/gram cream 1 applic topical BID PRN (Reason: Rash) fluoxetine 20 mg capsule 20 mg PO DAILY itraconazole 100 mg capsule 200 mg PO DAILY hydromorphone 2 mg tablet 2 mg PO Q6H PRN (Reason: Pain) gabapentin 800 mg Tablet 800 mg PO QID morphine 15 mg tablet extended release 15 mg PO BID lisinopril 5 mg Tablet 10 mg PO QAM Qty: 0 0RF Zyrtec 10 mg Tablet 10 mg PO DAILY Discharge Orders: Discharge ED (Routine); Ordered 12/17/23 Ordered By: Polo Simental Referrals: Mango Ortiz MD [Primary Care Provider] - Discharge Diet: Usual diet Discharge Activity: Limit activity as instructed Patient Instructions: Opioid Safety, Pain Management Activity Restrictions/Additional Instructions: Thank you for choosing [facility] for your healthcare needs today. It is very important that you follow up as instructed or that you return to the Emergency Department should you have concerns or if your condition changes or worsens in any way. You were seen today with a fall. CTs of your head neck and face did not show any acute injury to have a large hematoma on the forehead which will cause significant swelling and bruising of the face particularly around the eyes which will develop and worsen over the next day or 2. X-ray and CT of your left shoulder shows a humeral head fracture and is very suspicious for rotator cuff injury. You are discharged home in a left shoulder immobilizer which should leave in place until you follow-up with orthopedics. Case management make arrangements for follow-up. Continue to use the previously prescribed narcotic pain medications. You should not use the left arm until cleared by orthopedics Sign Out Sign Out Data: Patient Sign Out occurred on 12/17/23 at 05:41. Patient's care was discussed, and care was transferred from Chavez Nair DO to Polo Simental DO. Coding Level of Care Code ED Cloth Shearing Supervisor for Chg Fwd Documented by User: Polo Simental DO 12/18/23 06:59 HPI - Fall 2 General: Chief Complaint: Fall Stated Complaint: fall, fx arm Time Seen by Provider: 12/17/23 03:41 PFSH ED 2 PFSH: Medical History Decubitus skin ulcer Cataracts, bilateral Sleep apnea Hypertension Diabetes mellitus, type II Osteoarthritis Chronic UTI (urinary tract infection) Fibromyalgia Depression Bipolar disorder Surgical History History of gastric surgery History of cholecystectomy History of knee replacement History of orthopedic surgery Social History Smoking and tobacco/nicotine status: never used tobacco/nicotine Course 2 Vital Signs: Vital signs: Vital Signs Temperature 97.8 F 12/17/23 03:38 Pulse Rate 68 12/17/23 07:17 Respiratory Rate 18 12/17/23 08:13 Blood Pressure 194/82 12/17/23 07:28 Pulse Oximetry 98 12/17/23 08:28 Oxygen Delivery Me thod Room Air 12/17/23 08:28 MDM - Fall Medical Decision Making Proximal humerus fracture there is a significant mount of subluxation I suspect a rotator cuff injury on some of the views on the plain films it appears that the humeral head might have been dislocated on others it appears to be in position we did a CT to confirm confirms there is no dislocation at this time however there is significant subluxation on the CT as well. Place patient in shoulder immobilizer however follow up with orthopedics. She does have a very significant hematoma in the frontal region immediately above the glabella. Is already been some tracking of the blood and development of ecchymosis on the eyelids advised the patient she will develop significant ecchymosis and swelling in the eyelids over the next several hours to days. Apply ice to try to minimize symptoms. Pain medications given. Lab Data 12/17/23 03:54 12/17/23 03:54 Radiology Impressions Cervical Spine CT 12/17/23 03:41 IMPRESSION: Negative for acute cervical spine fracture. Chest X-Ray 12/17/23 03:41 IMPRESSION: 1. Left proximal humerus fractures. 2. Negative for acute intrathoracic pathology. Face CT 12/17/23 03:41 IMPRESSION: 1. Negative for acute facial bone fracture. 2. Soft tissue injuries to the face and frontal scalp. Head CT 12/17/23 03:41 IMPRESSION: 1. Negative for intracranial injury. 2. Soft tissue injuries in the frontal scalp and face. Shoulder X-Ray 12/17/23 03:41 IMPRESSION: Left proximal humeral neck and greater tuberosity fractures with significant inferior subluxation of the glenohumeral joint. Elbow X-Ray 12/17/23 03:43 IMPRESSION: Negative for acute left elbow region fractures. Shoulder CT 12/17/23 05:28 IMPRESSION: 1. Severely comminuted and impacted fracture deformity of the proximal left humerus which involves the humeral neck, lesser tuberosity and greater tuberosity. 2. There is significant inferior subluxation of the humeral head relative to the glenoid. 3. Large lipohemarthrosis of the glenohumeral joint space apparent. Laboratory Results WBC 14.72 10^3/uL (3.29-11.43) H 12/17/23 03:54 RBC 3.79 10^6/uL (3.85-5.65) L 12/17/23 03:54 Hgb 11.10 g/dL (11.27-16.99) L 12/17/23 03:54 Hct 35.1 % (36-47) L 12/17/23 03:54 MCV 92.6 fl (85-98) 12/17/23 03:54 MCH 29.3 pg (27-33) 12/17/23 03:54 MCHC 31.6 g/dL (30-55) 12/17/23 03:54 RDW 16.4 % (12.1-15.1) H 12/17/23 03:54 Plt Count 328 10^3/cmm (157-399) 12/17/23 03:54 MPV 10.3 fL (7.4-10.4) 12/17/23 03:54 Neut % (Auto) 66.3 % 12/17/23 03:54 Lymph % (Auto) 27.4 % 12/17/23 03:54 Mcleod % (Auto) 4.8 % 12/17/23 03:54 Eos % (Auto) 0.9 % 12/17/23 03:54 Baso % (Auto) 0.2 % 12/17/23 03:54 Neut # (Auto) 9.75 10^3/uL (1.8-7.7) H 12/17/23 03:54 Lymph # (Auto) 4.0 10^3/uL (0.8-4.8) 12/17/23 03:54 Mcleod # (Auto) 0.7 10^3/uL (0.2-0.9) 12/17/23 03:54 Eos # (Auto) 0.1 10^3/uL (0.0-0.8) 12/17/23 03:54 Baso # (Auto) 0.0 10^3/uL (0.0-0.1) 12/17/23 03:54 Nucleated RBC % (auto) 0 % 12/17/23 03:54 Nucleated RBCs # 0.0 /100WBC 12/17/23 03:54 PT 12.60 SECONDS (12.1-14.9) 12/17/23 03:54 INR 0.92 (0.8-1.2) 12/17/23 03:54 Sodium 137 mmol/L (136-145) 12/17/23 03:54 Potassium 3.9 mmol/L (3.5-5.1) 12/17/23 03:54 Chloride 100 mmol/L (98-107) 12/17/23 03:54 Carbon Dioxide 24 mmol/L (22-29) 12/17/23 03:54 Anion Gap 16.9 (5-19) 12/17/23 03:54 BUN 14 mg/dL (8-23) 12/17/23 03:54 Creatinine 0.6 mg/dL (0.5-0.9) 12/17/23 03:54 GFR Calculation 98.8 mL/min (90-130) 12/17/23 03:54 Glucose 159 mg/dL (65-115) H 12/17/23 03:54 Calculated Osmolality 288 mOsm/kg (285-295) 12/17/23 03:54 Calcium 8.9 mg/dL (8.5-10.5) 12/17/23 03:54 Total Bilirubin 0.2 mg/dL (0.15-1.2) 12/17/23 03:54 AST 14 U/L (0-32) 12/17/23 03:54 ALT 8 U/L (0-33) 12/17/23 03:54 Alkaline Phosphatase 102 U/L (35-105) 12/17/23 03:54 Total Protein 7.2 g/dL (6.6-8.7) 12/17/23 03:54 Albumin 3.6 g/dL (3.5-5.2) 12/17/23 03:54 Globulin 3.6 g/dL (1.3-4.6) 12/17/23 03:54 Discharge Plan Discharge Patient Disposition: Home Clinical Impression: Fracture of head of left humerus, Facial hematoma, Traumatic tear of left rotator cuff Condition: Stable Prescriptions: No Action acyclovir 400 mg tablet 400 mg PO BID nystatin 100,000 unit/gram cream 1 applic topical BID PRN (Reason: Rash) fluoxetine 20 mg capsule 20 mg PO DAILY itraconazole 100 mg capsule 200 mg PO DAILY hydromorphone 2 mg tablet 2 mg PO Q6H PRN (Reason: Pain) gabapentin 800 mg Tablet 800 mg PO QID morphine 15 mg tablet extended release 15 mg PO BID lisinopril 5 mg Tablet 10 mg PO QAM Qty: 0 0RF Zyrtec 10 mg Tablet 10 mg PO DAILY Discharge Orders: Discharge ED (Routine); Ordered 12/17/23 Ordered By: Polo Simental Referrals: Mango Ortiz MD [Primary Care Provider] - Discharge Diet: Usual diet Discharge Activity: Limit activity as instructed Patient Instructions: Opioid Safety, Pain Management Activity Restrictions/Additional Instructions: Thank you for choosing [facility] for your healthcare needs today. It is very important that you follow up as instructed or that you return to the Emergency Department should you have concerns or if your condition changes or worsens in any way. You were seen today with a fall. CTs of your head neck and face did not show any acute injury to have a large hematoma on the forehead which will cause significant swelling and bruising of the face particularly around the eyes which will develop and worsen over the next day or 2. X-ray and CT of your left shoulder shows a humeral head fracture and is very suspicious for rotator cuff injury. You are discharged home in a left shoulder immobilizer which should leave in place until you follow-up with orthopedics. Case management make arrangements for follow-up. Continue to use the previously prescribed narcotic pain medications. You should not use the left arm until cleared by orthopedics Sign Out Sign Out Data: Patient Sign Out occurred on 12/17/23 at 05:41. Patient's care was discussed, and care was transferred from Chavez Nair DO to Polo Simental DO. Coding Level of Care Code ED Cloth Shearing Supervisor for Elias Vaca
[2023-12-17 03:59] LABS: Basophils % 0.2 %; Eosinophils # 0.1 10^3/uL (0.0-0.8); Eosinophils % 0.9 %; Hematocrit 35.1 % (36-47); Lymphocytes % 27.4 %; Mean Corpuscular HGB Conc 31.6 g/dL (30-55); Mean Corpuscular Hemoglobin 29.3 pg (27-33); Mean Corpuscular Volume 92.6 fl (85-98); Mean Platelet Volume 10.3 fL (7.4-10.4); Monocytes # 0.7 10^3/uL (0.2-0.9); Monocytes % 4.8 %; Neutrophils # 9.75 10^3/uL (1.8-7.7); Neutrophils % 66.3 %; Nucleated Red Blood Cells % 0 %; Platelet Count 328 10^3/cmm (157-399); Red Blood Count 3.79 10^6/uL (3.85-5.65); Red Cell Distribution Width 16.4 % (12.1-15.1); White Blood Count 14.72 10^3/uL (3.29-11.43)
[2023-12-17 04:13] LABS: INR 0.92 (0.8-1.2)
[2023-12-17 04:16] LABS: Alanine Aminotransferase 8 U/L (0-33); Albumin Level 3.6 g/dL (3.5-5.2); Alkaline Phosphatase 102 U/L (35-105); Anion Gap 16.9 (5-19); Aspartate Amino Transferase 14 U/L (0-32); Blood Urea Nitrogen 14 mg/dL (8-23); Calcium 8.9 mg/dL (8.5-10.5); Carbon Dioxide 24 mmol/L (22-29); Chloride 100 mmol/L (98-107); Creatinine Clr Calc Pharmacy 73.7837; Globulin 3.6 g/dL (1.3-4.6); Glomerular Filtration Rate 98.8 mL/min (90-130); Glucose 159 mg/dL (65-115); Osmolality Calculated 288 mOsm/kg (285-295); Potassium 3.9 mmol/L (3.5-5.1); Sodium 137 mmol/L (136-145); Total Bilirubin 0.2 mg/dL (0.15-1.2); Total Protein 7.2 g/dL (6.6-8.7)
[2023-12-17] MEDS: fentaNYL 50 mcg/mL INJ 2mL 100 MCG IVP ×3 (04:51→07:16)
--- NOTE | 2023-12-17 05:28 | CTR_ITS ---
PROCEDURE INFORMATION: Exam: CT Left Upper Extremity Without Contrast, Shoulder Exam date and time: 12/17/2023 5:45 AM Age: 68 years old Clinical indication: Injury or trauma; Fall; Blunt trauma (contusions or hematomas); Shoulder; Left; Additional info: Fall - humeral hed fx/possibly anterior dislocation TECHNIQUE: Imaging protocol: Computed tomography of the left upper extremity without contrast. Exam focused on the shoulder. Radiation optimization: All CT scans at this facility use at least one of these dose optimization techniques: automated exposure control; mA and/or kV adjustment per patient size (includes targeted exams where dose is matched to clinical indication); or iterative reconstruction. COMPARISON: CR (CHEST, ) 12/17/2023 4:06 AM RADIATION DOSE METRICS: Total DLP (mGy-cm): 412 FINDINGS: Bones/joints: Lipohemarthrosis. There is severe inferior subluxation of the glenohumeral joint. Impacted displaced fractures of the humeral neck and greater tuberosity. Comminuted fracture components are noted involving greater and lesser tuberosities. Bones are diffusely demineralized. Left acromioclavicular joint alignment is unremarkable. Soft tissues: Subdeltoid soft tissue edema. Patchy contusion superficial to the left posterior deltoid region. CT/CT shoulder LT wo con* [id number] IMPRESSION: 1. Severely comminuted and impacted fracture deformity of the proximal left humerus which involves the humeral neck, lesser tuberosity and greater tuberosity. 2. There is significant inferior subluxation of the humeral head relative to the glenoid. 3. Large lipohemarthrosis of the glenohumeral joint space apparent.
[2023-12-17] MEDS: hyDRALAzine 20 mg/mL INJ 1 mL 10 MG IVP (06:38)
[2023-12-17] MEDS: labetalol 5 mg/mL SDV 20mL 10 MG IVP (06:40)
[2023-12-17] MEDS: lisinopril 20 mg Tablet PO (07:28)
[2023-12-17] MEDS: HYDROmorphone 1 mg/mL INJ 1 mL 0.5 MG IVP (08:13)
--- NOTE | 2023-12-18 08:01 | DCPLANNER ---
message sent to ortho for er f/u
--- NOTE | 2023-12-22 17:18 | DCPLANNER ---
vanessa reviewed and declined, this has been fwd on to dieter ramos
== END 2023-12-17 08:29 | disposition home or self-care (01) ==
PROVIDERS: Emergency Medicine; Emergency Provider Family Medicine; PCP Family Medicine
DX: S42.292A Other displaced fracture of upper end of left humerus, initial encounter for closed fracture (principal); S00.83XA Contusion of other part of head, initial encounter; S46.012A Strain of muscle(s) and tendon(s) of the rotator cuff of left shoulder, initial encounter; I10 Essential (primary) hypertension; E11.9 Type 2 diabetes mellitus without complications; W18.39XA Other fall on same level, initial encounter
CPT/HCPCS: 70450; 70486; 71045; 72125; 73030; 73080; 73200; 80053; 85025; 85610; 93005; 96374; 96375; 96376; 99285; J0360; J1170; J3010; J3490

== ENCOUNTER 2024-01-20 17:16 | Observation (INO) | payer MEDICARE, SELFPAY ==
[2024-01-20 17:17] VITALS: BP 126/62; PULSE 91; TEMP 36.8; O2SAT 94; BMI 39.3
--- NOTE | 2024-01-20 17:30 | XRR_ITS ---
PROCEDURE INFORMATION: Exam: XR Chest Exam date and time: 01/20/2024 5:52 PM Age: 68 years old Clinical indication: Other: Weakness; Prior surgery; Surgery date: <1 month; Surgery type: Lt shoulder TECHNIQUE: Imaging protocol: Radiologic exam of the chest. Views: 1 view. COMPARISON: CR XR chest 1V portable [id number] 12/17/2023 4:02 AM FINDINGS: Lungs: The lungs are hyperexpanded. Central vascular prominence without overt edema. No focal consolidations. Pleural spaces: No pleural effusions or pneumothorax. Heart/Mediastinum: Mild cardiomegaly. Bones/joints: Left shoulder replacement. Degenerative changes of the right shoulder. XR/XR chest 1V portable [id number] IMPRESSION: Central vascular prominence without overt edema. No focal consolidations.
--- NOTE | 2024-01-20 17:39 | ECG_ITS ---
[facility] Test Date: 2024-01-20 Pat Name: Aiyana Sorto Department: Room: Gender: Female Global Product Manager: : [id number] Requested By: Kiran Desai Order Number: [id number] Nico MD: Adan Aparicio M.D. Measurements Intervals [place] Rate: 79 P: 60 CO: 126 QRS: 35 QRSD: 88 T: 76 QT: 364 QTc: 418 Interpretive Statements SINUS RHYTHM Compared to ECG 12/17/2023 03:47:47 Myocardial infarct finding no longer present Electronically Signed On 01-21-2024 10:32:39 CDT by Adan Aparicio M.D. [email or web address]
[2024-01-20 17:48] LABS: Basophils % 0.3 %; Eosinophils # 0.1 10^3/uL (0.0-0.8); Eosinophils % 1.1 %; Hematocrit 31.4 % (36-47); Lymphocytes % 16.2 %; Mean Corpuscular HGB Conc 32.5 g/dL (30-55); Mean Corpuscular Hemoglobin 29.9 pg (27-33); Mean Corpuscular Volume 92.1 fl (85-98); Mean Platelet Volume 9.6 fL (7.4-10.4); Monocytes # 0.7 10^3/uL (0.2-0.9); Monocytes % 5.9 %; Nucleated Red Blood Cells % 0 %; Platelet Count 541 10^3/cmm (157-399); Red Blood Count 3.41 10^6/uL (3.85-5.65); Red Cell Distribution Width 17.5 % (12.1-15.1); White Blood Count 12.11 10^3/uL (3.29-11.43)
[2024-01-20] MEDS: meclizine 25 mg tablet 50 MG PO (17:52)
[2024-01-20] MEDS: sodium chloride 0.9% 1,000 ML 999 ML IV (17:52)
[2024-01-20 17:58] VITALS: BP 139/66; PULSE 79; O2SAT 92
--- NOTE | 2024-01-20 17:59 | CTR_ITS ---
PROCEDURE INFORMATION: Exam: CTA Head With Contrast, Arteriography Exam date and time: 01/20/2024 6:33 PM Age: 68 years old Clinical indication: Dizziness and giddiness; Additional info: Dizzy TECHNIQUE: Imaging protocol: Computed tomographic angiography of the head with contrast. Exam focused on the arteries. 3D rendering (Not supervised by radiologist): MIP and/or 3D reconstructed images were created by the technologist. Radiation optimization: All CT scans at this facility use at least one of these dose optimization techniques: automated exposure control; mA and/or kV adjustment per patient size (includes targeted exams where dose is matched to clinical indication); or iterative reconstruction. Contrast material: OMNI 350; Contrast volume: 100 ml; Contrast route: INTRAVENOUS (IV); COMPARISON: CT head wo con* [id number] 01/20/2024 6:33 PM RADIATION DOSE METRICS: Total DLP (mGy-cm): 1162 FINDINGS: ANTERIOR CIRCULATION: Right internal carotid artery: Intracranial segment is patent with no significant stenosis. No aneurysm. Right middle cerebral artery: No occlusion or significant stenosis. No aneurysm. Right anterior cerebral artery: No occlusion or significant stenosis. No aneurysm. Left internal carotid artery: Intracranial segment is patent with no significant stenosis. No aneurysm. Left middle cerebral artery: No occlusion or significant stenosis. No aneurysm. Left anterior cerebral artery: No occlusion or significant stenosis. No aneurysm. POSTERIOR CIRCULATION: Right vertebral artery: No occlusion or significant stenosis. No aneurysm. Left vertebral artery: No occlusion or significant stenosis. No aneurysm. Basilar artery: No occlusion or significant stenosis. No aneurysm. Right posterior cerebral artery: No occlusion or significant stenosis. No aneurysm. Left posterior cerebral artery: No occlusion or significant stenosis. No aneurysm. Brain: No definite mass, mass effect, or midline shift. Periventricular hypoattenuation likely secondary to chronic microangiopathy. Cerebral ventricles: No ventriculomegaly. Paranasal sinuses: Near complete opacification of the left maxillary and bilateral sphenoid sinuses. Rightward deviation of the nasal septum. Bones/joints: Unremarkable. No acute fracture. Soft tissues: 0.7 cm nonspecific soft tissue focus overlying the frontal scalp which may represent a sebaceous cyst. PROCEDURE INFORMATION: Exam: CTA Neck With Contrast Exam date and time: 01/20/2024 6:33 PM Age: 68 years old Clinical indication: Dizziness and giddiness; Additional info: Dizzy TECHNIQUE: Imaging protocol: Computed tomographic angiography of the neck with contrast. Exam focused on the cervical segments of the vasculature. 3D rendering (Not supervised by radiologist): MIP and/or 3D reconstructed images were created by the technologist. Radiation optimization: All CT scans at this facility use at least one of these dose optimization techniques: automated exposure control; mA and/or kV adjustment per patient size (includes targeted exams where dose is matched to clinical indication); or iterative reconstruction. Contrast material: OMNI 350; Contrast volume: 100 ml; Contrast route: INTRAVENOUS (IV); COMPARISON: CT cervical spin wo con* [id number] 12/17/2023 4:32 AM RADIATION DOSE METRICS: Total DLP (mGy-cm): 1162 FINDINGS: Right common carotid artery: No stenosis. No dissection or occlusion. Right internal carotid artery: No stenosis of the extracranial segment. No dissection or occlusion. Retropharyngeal course of the internal carotid artery. Right external carotid artery: No occlusion or stenosis of the origin. Left common carotid artery: No stenosis. No dissection or occlusion. Retropharyngeal course of the internal carotid artery. Left internal carotid artery: No stenosis of the extracranial segment. No dissection or occlusion. Left external carotid artery: No occlusion or stenosis of the origin. Right vertebral artery: No stenosis. No dissection or occlusion. Left vertebral artery: No stenosis. No dissection or occlusion. Pulmonary arteries: Small filling defect within the a left posterior pulmonary artery compatible with pulmonary embolus. The main pulmonary artery is dilated up to 4.0 cm, which is nonspecific but concerning for pulmonary arterial hypertension. Soft tissues: Normal. No significant soft tissue swelling. Bones/joints: No acute fracture. Severe cervical spondylosis with multilevel intervertebral disc space narrowing. CT/CT angio headneck* [id number] IMPRESSION: No large vessel stenosis or occlusion. Near complete opacification of the left maxillary and bilateral sphenoid sinuses concerning for sinusitis in the appropriate clinical setting. IMPRESSION: 1. No stenosis or occlusion. 2. Small filling defect within the a left posterior pulmonary artery compatible with pulmonary embolus. 3. The main pulmonary artery is dilated up to 4.0 cm, which is nonspecific but concerning for pulmonary arterial hypertension. COMMENT: THIS REPORT CONTAINS FINDINGS THAT MAY BE CRITICAL TO PATIENT CARE. The exam findings were verbally communicated by me to TIMMY MILLER via telephone conference at 7:46 PM CDT on 01/20/2024. The findings were acknowledged and understood. REFERENCES: NASCET CRITERIA. The degree of stenosis in the cervical segment of the internal carotid artery is based on NASCET criteria. Normal is no stenosis. Mild is less than 50% stenosis. Moderate is 50-69% stenosis. Severe is 70% to 99% stenosis. Total occlusion is no detectable patent lumen.
--- NOTE | 2024-01-20 18:02 | ED_ITS ---
HPI - Dizziness 2 General: Chief Complaint: Dizziness Stated Complaint: DIZZY Time Seen by Provider: 01/20/24 17:18 Source: patient and EMS Mode of arrival: EMS Limitations: no limitations History of Present Illness: HPI Narrative: 68-year-old female who states that since 4 AM she has been having dizziness she states that she had some difficulty walking and gets extremely dizzy when standing she had some nausea she denies any headache she denies any vomiting or diarrhea. Patient denies any fevers. Associated symptoms: Reports nausea; Denies chest pain, chills or headache(s) Review of Systems 2 Const: Denies: fever(s), chills, body aches or change in appetite Eyes: Denies: blurry vision or eye discomfort ENMT: Denies: throat pain or dental pain Card: Denies: chest pain Resp: Denies: dyspnea GI: Reports: nausea; Denies: abdominal pain or diarrhea Musc: Denies: neck pain or back pain Skin/Breast: Denies: rash Neuro: Reports: dizziness; Denies: headache(s) PFSH ED 2 PFSH: Medical History Decubitus skin ulcer Cataracts, bilateral Sleep apnea Hypertension Diabetes mellitus, type II Osteoarthritis Chronic UTI (urinary tract infection) Fibromyalgia Depression Bipolar disorder Surgical History History of gastric surgery History of cholecystectomy History of knee replacement History of orthopedic surgery Social History Smoking and tobacco/nicotine status: never used tobacco/nicotine Physical Exam 2 Const: COMMON NORMALS: no acute distress, patient oriented x3 and healthy appearing HENMT: COMMON NORMALS: normocephalic and atraumatic HEAD & SCALP: n ormocephalic and atraumatic Eye: COMMON NORMALS: Equal, round and reactive pupils present and EOMs intact bilaterally PUPIL: Yes Equal, round and reactive pupils present Neck/C-Spine: COMMON NORMALS: full ROM and supple Chest: COMMONS NORMALS: normal inspection of the chest and normal palpation of entire chest wall Resp: COMMON NORMALS: normal respiratory effort, No retractions, No use of accessory muscles and clear to auscultation bilaterally AUSCULTATION: clear to auscultation bilaterally Cardio: COMMON NORMALS: regular rate, regular rhythm and No murmurs present (Cardio) RATE: regular rate RHYTHM: regular rhythm GI: COMMON NORMALS: Normal to inspection, nondistended, normoactive bowel sounds present, Soft to palpation, non-tender and no masses PALPATION: Yes Soft to palpation Extremity: COMMON NORMALS: normal to inspection and full ROM Neuro: COMMON NORMALS: patient oriented x3, moves all extremities and no focal motor deficits Psych: COMMON NORMALS: mental status grossly normal, Normal thought process present and cooperative THOUGHT PROCESS: Normal thought process present Skin: COMMON NORMALS: no rashes or lesions noted and no wounds GENERAL SKIN EXAM: no rashes or lesions noted Course 2 Vital Signs: Vital signs: Vital Signs Temperature 98.3 F 01/20/24 17:17 Pulse Rate 74 01/20/24 19:35 Blood Pressure 139/66 01/20/24 17:58 Pulse Oximetry 96 01/20/24 19:35 Oxygen Delivery Me thod Room Air 01/20/24 17:58 MDM - Dizziness Medical Decision Making Patient presents here with dizziness it has been going on since 4 AM she been having a hard time ambulating head frequent falls at home patient here is not been able to get up out of her bed even to bedside commode without the assistance of 2 people I feel at this time she is a fall risk and will admit CTA showed a possible PE do not want to redose her with another dose of contrast at this time she has no chest pain or shortness of breath will evaluate later for that will admit to hospitalist Medical Records I reviewed the patient's medical records. Lab Data I reviewed the patient's lab results. 01/20/24 17:40 01/20/24 17:40 Radiology Impressions Chest X-Ray 01/20/24 17:30 IMPRESSION: Central vascular prominence without overt edema. No focal consolidations. Head/Neck CTA 01/20/24 17:59 IMPRESSION: No large vessel stenosis or occlusion. Near complete opacification of the left maxillary and bilateral sphenoid sinuses concerning for sinusitis in the appropriate clinical setting. IMPRESSION: 1. No stenosis or occlusion. 2. Small filling defect within the a left posterior pulmonary artery compatible with pulmonary embolus. 3. The main pulmonary artery is dilated up to 4.0 cm, which is nonspecific but concerning for pulmonary arterial hypertension. COMMENT: THIS REPORT CONTAINS FINDINGS THAT MAY BE CRITICAL TO PATIENT CARE. The exam findings were verbally communicated by me to TIMMY MILLER via telephone conference at 7:46 PM CDT on 01/20/2024. The findings were acknowledged and understood. REFERENCES: NASCET CRITERIA. The degree of stenosis in the cervical segment of the internal carotid artery is based on NASCET criteria. Normal is no stenosis. Mild is less than 50% stenosis. Moderate is 50-69% stenosis. Severe is 70% to 99% stenosis. Total occlusion is no detectable patent lumen. Laboratory Results WBC 12.11 10^3/uL (3.29-11.43) H 01/20/24 17:40 RBC 3.41 10^6/uL (3.85-5.65) L 01/20/24 17:40 Hgb 10.20 g/dL (11.27-16.99) L 01/20/24 17:40 Hct 31.4 % (36-47) L 01/20/24 17:40 MCV 92.1 fl (85-98) 01/20/24 17:40 MCH 29.9 pg (27-33) 01/20/24 17:40 MCHC 32.5 g/dL (30-55) 01/20/24 17:40 RDW 17.5 % (12.1-15.1) H 01/20/24 17:40 Plt Count 541 10^3/cmm (157-399) H 01/20/24 17:40 MPV 9.6 fL (7.4-10.4) 01/20/24 17:40 Neut % (Auto) 76.0 % 01/20/24 17:40 Lymph % (Auto) 16.2 % 01/20/24 17:40 Patrick % (Auto) 5.9 % 01/20/24 17:40 Eos % (Auto) 1.1 % 01/20/24 17:40 Baso % (Auto) 0.3 % 01/20/24 17:40 Neut # (Auto) 9.20 10^3/uL (1.8-7.7) H 01/20/24 17:40 Lymph # (Auto) 2.0 10^3/uL (0.8-4.8) 01/20/24 17:40 Patrick # (Auto) 0.7 10^3/uL (0.2-0.9) 01/20/24 17:40 Eos # (Auto) 0.1 10^3/uL (0.0-0.8) 01/20/24 17:40 Baso # (Auto) 0.0 10^3/uL (0.0-0.1) 01/20/24 17:40 Nucleated RBC % (auto) 0 % 01/20/24 17:40 Nucleated RBCs # 0.0 /100WBC 01/20/24 17:40 Sodium 130 mmol/L (136-145) L 01/20/24 17:40 Potassium 5.2 mmol/L (3.5-5.1) H 01/20/24 17:40 Chloride 95 mmol/L (98-107) L 01/20/24 17:40 Carbon Dioxide 21 mmol/L (22-29) L 01/20/24 17:40 Anion Gap 19.2 (5-19) H 01/20/24 17:40 BUN 29 mg/dL (8-23) H 01/20/24 17:40 Creatinine 1.1 mg/dL (0.5-0.9) H 01/20/24 17:40 GFR Calculation 49.1 mL/min (90-130) L 01/20/24 17:40 Glucose 144 mg/dL (65-115) H 01/20/24 17:40 Calculated Osmolality 278 mOsm/kg (285-295) L 01/20/24 17:40 Calcium 9.1 mg/dL (8.5-10.5) 01/20/24 17:40 Total Bilirubin 0.2 mg/dL (0.15-1.2) 01/20/24 17:40 AST 16 U/L (0-32) 01/20/24 17:40 ALT 8 U/L (0-33) 01/20/24 17:40 Alkaline Phosphatase 161 U/L (35-105) H 01/20/24 17:40 Total Protein 7.2 g/dL (6.6-8.7) 01/20/24 17:40 Albumin 3.3 g/dL (3.5-5.2) L 01/20/24 17:40 Globulin 3.9 g/dL (1.3-4.6) 01/20/24 17:40 All radiology interpretation(s) finalized by discharge EKG Data EKG 1: I personally reviewed and interpreted this EKG as follows: EKG interpretation date: 01/20/24 EKG interpretation time: 17:39 Interpretation: nsr hr [address] elevation qrs 88 qtc 398 Discharge Plan Discharge Patient Disposition: Admitted As Inpatient Clinical Impression: Dizziness, Falls frequently Condition: Stable Prescriptions: No Action acyclovir 400 mg tablet 400 mg PO BID nystatin 100,000 unit/gram cream 1 applic topical BID PRN (Reason: Rash) fluoxetine 20 mg capsule 20 mg PO DAILY itraconazole 100 mg capsule 200 mg PO DAILY hydromorphone 2 mg tablet 2 mg PO Q6H PRN (Reason: Pain) gabapentin 800 mg Tablet 800 mg PO QID morphine 15 mg tablet extended release 15 mg PO BID lisinopril 5 mg Tablet 10 mg PO QAM Qty: 0 0RF Zyrtec 10 mg Tablet 10 mg PO DAILY Referrals: Mango Ortiz MD [Primary Care Provider] - Coding Level of Care Code ED Labor Utilization Superintendent for Chg Fwd NIH stroke score NIHSS Level Of Consciousness - 1a: 0 Level Of Consciousness Questions - 1b: Both Correct Level Of Consciousness Commands - 1c: Both Correct Best Gaze - 2: Normal Visual Kamara - 3: No Visual Loss Facial Palsy - 4: Normal Motor Arm Right - 5: No Drift Motor Arm Left - 5: No Drift Motor Leg Right - 6: No Drift Motor Leg Left - 6: No Drift Limb Ataxia - 7: Absent Sensory - 8: Normal Best Language - 9: No Aphasia Dysarthia - 10: Normal Extinction And Inattention - 11: 0 Score Total Score: 0
[2024-01-20 18:06] LABS: Alanine Aminotransferase 8 U/L (0-33); Albumin Level 3.3 g/dL (3.5-5.2); Alkaline Phosphatase 161 U/L (35-105); Aspartate Amino Transferase 16 U/L (0-32); Blood Urea Nitrogen 29 mg/dL (8-23); Calcium 9.1 mg/dL (8.5-10.5); Carbon Dioxide 21 mmol/L (22-29); Chloride 95 mmol/L (98-107); Creatinine Clr Calc Pharmacy 51.8888; Globulin 3.9 g/dL (1.3-4.6); Glomerular Filtration Rate 49.1 mL/min (90-130); Glucose 144 mg/dL (65-115); Osmolality Calculated 278 mOsm/kg (285-295); Sodium 130 mmol/L (136-145); Total Bilirubin 0.2 mg/dL (0.15-1.2); Total Protein 7.2 g/dL (6.6-8.7)
[2024-01-20 18:16] LABS: Anion Gap 19.2 (5-19); Potassium 5.2 mmol/L (3.5-5.1)
[2024-01-20] MEDS: iohexol 350 mg/mL 500 mL Btl (per mL) IV (18:28)
--- NOTE | 2024-01-20 18:33 | CT_ITS ---
WS: [id number] CT HEAD NONCONTRAST HISTORY: WEAKNESS TECHNIQUE: Contiguous axial imaging performed through the brain in 2.5 mm imaging. Bone and soft tiss ue windows. Sagittal and coronal reformats reviewed. All CT scans at [facility] use at least one of these dose optimization techniques: automated exposure control; mA and/or kV adjustment per pa tient size (includes targeted exams where dose is matched to clinical indication); or iterative recon struction. DLP: 1162.2 mGy COMPARISON: 12/17/2023 Mild atrophy with moderate small vessel ischemic disease throughout the white matter. Patchy and conf luent white matter changes from ischemia. No large infarct. No midline shift. Ventricles: Normal size with no hydrocephalus. Paranasal sinuses: Mucoperiosteal thickening in the LEFT maxillary sinus. Additional soft tissue in t he sphenoid sinuses and ethmoid sinuses very similar to the prior study. Mastoid air cells: Well pneumatized. Calvarium and scalp: No skull fracture. Resolving hematoma involving the soft tissues over the LEFT f rontal bone. CT/CT head wo con* [id number] IMPRESSION: 1. No acute intracranial hemorrhage or edema. 2. Mild cerebral atrophy with moderate small vessel ischemic disease. 3. Improving LEFT frontal scalp hematoma. Study submitted for interpretation on 01/21/2024 at 8:15 a.m.
[2024-01-20 19:35] VITALS: PULSE 74; O2SAT 96
[2024-01-20 20:39] VITALS: PULSE 71; O2SAT 95
[2024-01-20 21:25] VITALS: PULSE 70; O2SAT 94
--- NOTE | 2024-01-20 21:33 | PC.NURSE ---
Report was called to Rozina CABELLO. All questions and concerns were addressed at time of report. Patient was transferred with all paperwork and belongings.
--- NOTE | 2024-01-20 21:40 | PM.HP ---
Providers/Chief Complaint Admitting Physician: Maxime Carolina MD Primary Care Provider: Mango Ortiz MD Chief Complaint: DIZZY History of Present Illness Aiyana Sorto is a 68 year old female who recently had left shoulder surgery at [facility] presented today with chief complaint of nausea vomiting lightheadedness. Patient was given meclizine and Zofran which improved her symptoms, patient is stating that she will get dizzy every time she moves her head and she has been noticing that her body is twitching. She is not endorsing any history of seizures, she has fibromyalgia takes morphine, hydrocodone and Dilaudid every 6 hours on as-needed basis which is being prescribed by the PCP for her fibromyalgia. She never had any issues with opioid overdose or constipation. She uses walker and wheelchair however secondary to shoulder surgery she has not been able to use a walker. Patient is stating that she fell multiple times today because she is extremely dizzy that brought her to the hospital NIH 0, nonfocal neuroexam Patient stating that she also experienced some fullness in her ear and this has been going on for at least 1 week she has not noticed any fever, runny nose runny eyes sinus infection. She is not endorsing tinnitus Review of Systems Const: Denies: fever(s) Eyes: Denies: change in vision ENMT: Denies: throat pain Card: Denies: chest pain Resp: Denies: dyspnea GI: Denies: abdominal pain : Denies: flank pain Musc: Reports: back pain; Denies: neck pain Neuro: Reports: frequent falls, dizziness and vertigo Medications/Allergies Home Medications Medication Instructions Recorded Confirmed Last Taken Type gabapentin 800 mg tablet 800 mg PO QID 01/21/20 12/17/23 05/15/23 History hydromorphone 2 mg tablet 2 mg PO Q6H PRN Pain 01/21/20 12/17/23 12/17/23 History morphine 15 mg tablet,extended 15 mg PO BID 01/21/20 08/08/23 05/16/23 05:00 History release lisinopril 5 mg tablet 10 mg (2 x 5 mg) PO QAM #0 tabs 11/26/21 12/17/23 05/15/23 Rx acyclovir 400 mg tablet 400 mg PO BID 04/29/23 12/17/23 05/15/23 History fluoxetine 20 mg capsule 20 mg PO DAILY 04/29/23 12/17/23 05/15/23 History itraconazole 100 mg capsule 200 mg PO DAILY 04/29/23 12/17/23 05/15/23 History nystatin 100,000 unit/gram topical 1 applic topical BID PRN Rash 04/29/23 08/08/23 Unknown History cream cetirizine 10 mg tablet (Zyrtec) 10 mg PO DAILY 05/15/23 08/08/23 05/15/23 History Allergies Allergy/AdvReac Type Severity Reaction Status Date / Time adhesive tape Allergy Unknown ALGY-Bliste Verified 01/20/24 17:28 r erythromycin base Allergy Unknown ALGY-Rash Verified 01/20/24 17:28 formaldehyde Allergy Unknown anaphylaxis Verified 01/20/24 17:28 ketorolac Allergy Unknown ALGY-Rash Verified 01/20/24 17:28 latex Allergy Unknown ADR-Irritab Verified 01/20/24 17:28 le meperidine Allergy Unknown nausea Verified 01/20/24 17:28 NSAIDS (Non-Steroidal Allergy Unknown ADR-Abdominal Verified 01/20/24 17:28 Anti-Inflamma Pain [NSAIDS (Non-Steroidal Anti-Inflammatory Drug)] oxybutynin Allergy Unknown ADR-Faintin Verified 01/20/24 17:28 g Penicillins Allergy Unknown ALGY-Rash Verified 01/20/24 17:28 pregabalin Allergy Unknown ADV-Weaknes Verified 01/20/24 17:28 s Iuayxpv-XTL-TnO Reductase Allergy Unknown Unknown Verified 01/20/24 17:28 Inhibitor [Ufwjoma-RFF-WgC Reductase Inhibitors] topiramate Allergy Unknown ADR-Diarrhe Verified 01/20/24 17:28 a zinc Allergy Unknown ALGY-Bliste Verified 01/20/24 17:28 r levofloxacin [From Levaquin] Allergy ADR-Muscle Verified 01/20/24 17:28 Pain Januvia Allergy Unknown ADR-Diarrhe Uncoded 01/20/24 17:28 a Levaquin Allergy Unknown ADR-Muscle Uncoded 01/20/24 17:28 Pain Toprol XL Allergy Unknown Unknown Uncoded 01/20/24 17:28 PFSH Acute PFSH: Medical History Decubitus skin ulcer Cataracts, bilateral Sleep apnea Hypertension Diabetes mellitus, type II Osteoarthritis Chronic UTI (urinary tract infection) Fibromyalgia Depression Bipolar disorder Surgical History History of gastric surgery History of cholecystectomy History of knee replacement History of orthopedic surgery Social History Smoking and tobacco/nicotine status: never used tobacco/nicotine Vitals/I&O/Wt Last Vital Signs Temp 98.3 F 01/20/24 17:17 Pulse 70 01/20/24 21:25 BP 139/66 01/20/24 17:58 Pulse Ox 94 01/20/24 21:25 O2 Del Method Room Air 01/20/24 17:58 Weight last 48 hrs Weight 97.522 kg Physical Exam Narrative: Morbid obese female Currently laying in right lateral position Nonfocal neuroexam No active nystagmus GCS 15 Euvolemic Hemodynamic stable Currently on room air Pleasant and cooperative Patient has left arm sling with a drain Drain is empty no active drainage noted Data 01/20/24 17:40 01/20/24 17:40 A&P Assessment and plan (1) ANITRA (acute kidney injury): (2) Osteoarthritis: (3) Lumbar stenosis with neurogenic claudication: (4) Sleep apnea: (5) Falls frequently: (6) BPPV (benign paroxysmal positional vertigo): Plan Subacute onset of lightheadedness Patient endorsing fullness of left ear No history of fever, nausea, vomiting, tinnitus, hearing deficit I would avoid steroids f, suspicion for liver otitis is low I do believe she has BPPV Will request Yvonne-Hallpike maneuver and Ewa's maneuver with physical therapy I would avoid giving her meclizine I do not see any focal deficit to consider posterior circulation stroke CTA head and neck unremarkable Since her symptoms are not chronic I would not consider M?ni?re's disease at this point Questionable finding of PE on CTA head and neck will request CTA chest in the morning Mild ANITRA hold lisinopril Full code Cardiac diet/consistent carb diet Insulin sliding scale PE needs to be ruled out, however for now I will put her on therapeutic Lovenox Request PT in the morning Patient is stating that she needs to follow-up with her surgeon on for removal of left shoulder drain Attestations Medical Necessity Statement*: Anticipating discharge within 40 hours Diagnoses ANITRA (acute kidney injury) N17.9 Osteoarthritis M19.90 Lumbar stenosis with neurogenic claudication M48.062 Sleep apnea G47.30 Falls frequently R29.6 BPPV (benign paroxysmal positional vertigo) H81.10
--- NOTE | 2024-01-20 21:59 | PC.NURSE ---
Patient educated on SCDs. Patient states I hate those things, I'll just rip them off.
--- NOTE | 2024-01-20 22:00 | PC.NURSE ---
Patient refusing gown.
[2024-01-20 22:06] LABS: Glucose Point of Care 173 mg/dL (70-110)
--- NOTE | 2024-01-20 22:15 | PC.NURSE ---
Dr. Carolina notified that patient is stating that the open wounds to her groins and buttocks. Dr. Carolina notified that patient is requesting garcia catheter, stating that she gets dizzy and falls when she gets up. Garcia ordered.
[2024-01-20 22:37] LABS: D Dimer 3.29 ug/mLFEU (0-0.59)
[2024-01-20 22:42] VITALS: RESP 16
[2024-01-20] MEDS: morphine ER (12 HR) 15 mg Tablet PO (22:42)
[2024-01-20] MEDS: enoxaparin 100 mg/mL Syringe SUBCUT (23:00)
[2024-01-20] MEDS: acyclovir 400 mg Tablet PO (23:00)
[2024-01-21] VITALS (7 sets, daily range): BP systolic 111–128; BP diastolic 53–68; PULSE 65–81; RESP 15–20; TEMP 36.5–37.1; O2SAT 92–96
[2024-01-21 00:38] LABS: Vitamin B12 162 pg/mL (232-1245)
[2024-01-21] MEDS: ondansetron 2 mg/ML SDV 2 mL 4 MG IVP ×2 (04:54→12:01)
[2024-01-21 05:45] LABS: Basophils % 0.3 %; Eosinophils # 0.6 10^3/uL (0.0-0.8); Eosinophils % 6.2 %; Hematocrit 31.1 % (36-47); Lymphocytes # 3.1 10^3/uL (0.8-4.8); Lymphocytes % 30.8 %; Mean Corpuscular HGB Conc 31.5 g/dL (30-55); Mean Corpuscular Hemoglobin 29.2 pg (27-33); Mean Corpuscular Volume 92.6 fl (85-98); Mean Platelet Volume 9.8 fL (7.4-10.4); Monocytes # 1.1 10^3/uL (0.2-0.9); Monocytes % 10.5 %; Neutrophils # 5.26 10^3/uL (1.8-7.7); Neutrophils % 51.6 %; Nucleated Red Blood Cells % 0 %; Platelet Count 499 10^3/cmm (157-399); Red Blood Count 3.36 10^6/uL (3.85-5.65); Red Cell Distribution Width 17.6 % (12.1-15.1); White Blood Count 10.19 10^3/uL (3.29-11.43)
[2024-01-21 06:03] LABS: Anion Gap 18.9 (5-19); Blood Urea Nitrogen 22 mg/dL (8-23); C Reactive Protein 34.2 mg/L (0.0-4.9); Calcium 8.8 mg/dL (8.5-10.5); Carbon Dioxide 19 mmol/L (22-29); Chloride 101 mmol/L (98-107); Creatinine Clr Calc Pharmacy 52.7203; Glomerular Filtration Rate 49.1 mL/min (90-130); Glucose 90 mg/dL (65-115); Magnesium 2.3 mg/dL (1.7-2.3); Osmolality Calculated 281 mOsm/kg (285-295); Potassium 4.9 mmol/L (3.5-5.1); Sodium 134 mmol/L (136-145)
[2024-01-21 06:13] LABS: Glucose Point of Care 109 mg/dL (70-110)
[2024-01-21] MEDS: gabapentin 400 mg Capsule 800 MG PO ×3 (09:31→17:54)
[2024-01-21] MEDS: acyclovir 400 mg Tablet PO ×2 (09:32→17:54)
[2024-01-21] MEDS: enoxaparin 100 mg/mL Syringe SUBCUT (09:32)
[2024-01-21] MEDS: amlodipine 10 mg Tablet PO (09:32)
[2024-01-21] MEDS: morphine ER (12 HR) 15 mg Tablet PO ×2 (09:32→17:54)
--- NOTE | 2024-01-21 11:13 | USCV_ITS ---
Aiyana Sorto Age: 68 Gender: F : 1955 Exam Date: 01/21/2024 12:40 Ordering Phys: Miguel Moreno MD Technologist: Exam Location: [facility] [place] Indication: chest pain edema PROCEDURES: The venous duplex Doppler examination of both lower extremities was performed in the standard fashion. The following venous structures were evaluated: common femoral vein, profunda vein, proximal portion of the greater saphenous vein, superficial femoral vein, and the popliteal vein. FINDINGS: Normal 2-D Doppler and augmentation and compressibility throughout the lower extremity venous structures. Additional imaging through the proximal calf veins also reveals no thrombus. Limited evaluation of the greater saphenous vein is patent with no thrombus. The veins were found to be easily compressible with spontaneous blood flow. Non pulsatile flow pattern. CONCLUSIONS No evidence of DVT in the above-mentioned identifiable veins. Dr Rehan Bhatti MD FACC (Electronically Signed) Final Date: 21 January 2024 17:45 S
[2024-01-21 11:30] LABS: Estmated Average Glucose 137; Hemoglobin A1C 6.4 % (4.0-6.0)
[2024-01-21 11:40] LABS: Iron 59 ug/dL (37-145); Percent Saturation 20.2 % (20-50); Thyroid Stimulating Hormone 3.85 uIU/mL (0.27-4.20); Total Iron Binding Capacity 292 mcg/dl; Unsaturated Iron Binding 233 ug/dL (112-347)
[2024-01-21 11:42] LABS: Glucose Point of Care 227 mg/dL (70-110)
[2024-01-21] MEDS: fluticasone nasal spray 16gm Btl 1 SPRAY NASAL ×2 (12:00→17:55)
[2024-01-21] MEDS: cyanocobalamin 1,000 mcg/mL SDV 1000 MCG IM (12:01)
[2024-01-21] MEDS: insulin lispro 100 unit/1 mL SUBCUT (12:02)
[2024-01-21 16:47] LABS: Glucose Point of Care 91 mg/dL (70-110)
--- NOTE | 2024-01-21 18:12 | P.DS_ITS ---
Discharge Providers Date of Admission: 01/20/24 21:23 Date of Discharge: January 21, 2024 Attending Provider at Admission: Maxime Carolina MD Attending Provider at Discharge: Miguel Moreno MD Primary Care Provider: Mango Ortiz MD Diagnoses at Discharge Discharge Diagnosis (1) ANITRA (acute kidney injury): Status: Acute (2) Osteoarthritis: Status: Acute (3) Lumbar stenosis with neurogenic claudication: Status: Acute (4) Sleep apnea: Status: Acute (5) Falls frequently: Status: Acute (6) BPPV (benign paroxysmal positional vertigo): Status: Acute Reason for Visit Reason for Visit: DIZZY Brief History: History as per HPI: Aiyana Sorto is a 68 year old female who recently had left shoulder surgery at [facility] presented today with chief complaint of nausea vomiting lightheadedness. Patient was given meclizine and Zofran which improved her symptoms, patient is stating that she will get dizzy every time she moves her head and she has been noticing that her body is twitching. She is not endorsing any history of seizures, she has fibromyalgia takes morphine, hydrocodone and Dilaudid every 6 hours on as-needed basis which is being prescribed by the PCP for her fibromyalgia. She never had any issues with opioid overdose or co nstipation. She uses walker and wheelchair however secondary to shoulder surgery she has not been able to use a walker. Patient is stating that she fell multiple times today because she is extremely dizzy that brought her to the hospital NIH 0, nonfocal neuroexam Patient stating that she also experienced some fullness in her ear and this has been going on for at least 1 week she has not noticed any fever, runny nose runny eyes sinus infection. She is not endorsing tinnitus Hospital Course Hospital Course Patient was roomed to the hospital further evaluation and management of dizziness. Patient's symptoms improved the next morning. CT head done on admission was negative for stroke but was consistent with sinusitis. Her symptoms are most likely in setting of sinusitis along with extensive pain medications at home. Patient worked well with physical therapy. CT head and neck done on admission was also concerning for possible pulmonary embolism though patient remained on room air without episodes of tachycardia, tachypnea. Patient did have mild ANITRA on admission. Given mild ANITRA on admission, 1 contrast study done overnight with very low suspicion of PE decision was made to hold off on CTA chest. Lower limb Dopplers were done which were negative for DVT. Patient was agreeable with treatment plan. Danger signs for possible PE were discussed in detail and was advised to come back to the hospital if she has any chest pain or difficulty in breathing. She has been discharged in hemodynamically stable condition. Amlodipine has been started instead of lisinopril. She will take meclizine 12.5 mg as needed. She will follow-up with her outpatient surgeon for further physical therapy for her shoulder. Physical Exam Narrative: Morbid obese female Currently laying in right lateral position Nonfocal neuroexam No active nystagmus GCS 15 Euvolemic Hemodynamic stable Currently on room air Pleasant and cooperative Patient has left arm sling with a drain Drain is empty no active drainage noted Urinary Catheter Management: Sloan: Cath Placed During This Visit: yes, but has since been removed by the nurse Reason for Continuing Indwelling Catheter: Decision to DC Catheter Urinary Catheter Date of Insertion: 01/20/24 Urinary Catheter Time of Insertion: 22:49 Date Urinary Catheter Removed: 01/21/24 Time Urinary Catheter Discontinued: 18:03 Discharge Data Studies Completed and Pending Completed Studies During Hospitalization Category Date Time Status CT head wo con* [id number] Routine Cat Scan 01/20/24 18:33 Completed CTA head neck [CT angio headneck* [id number]] Stat Cat Scan 01/20/24 17:59 Completed XR chest 1V portable [id number] Stat Exams 01/20/24 17:30 [place] [id number] Routine Ultrasound 01/21/24 11:13 Completed Pending at discharge Category Date Time Status Complete Blood Count w/Auto AM LABS Lab 01/22/24 04:00 Ordered Comprehensive Metabolic Panel AM LABS Lab 01/22/24 04:00 Ordered Folate Level AM LABS Lab 01/22/24 04:00 Ordered Lipid Profile w/VLDL Routine Lab 01/22/24 04:00 Ordered MAG [Magnesium] AM LABS Lab 01/22/24 04:00 Ordered MAG [Magnesium] AM LABS Lab 01/23/24 04:00 Ordered MAG [Magnesium] AM LABS Lab 01/24/24 04:00 Ordered Radiology Impressions Chest X-Ray 01/20/24 17:30 IMPRESSION: Central vascular prominence without overt edema. No focal consolidations. Head/Neck CTA 01/20/24 17:59 IMPRESSION: No large vessel stenosis or occlusion. Near complete opacification of the left maxillary and bilateral sphenoid sinuses concerning for sinusitis in the appropriate clinical setting. IMPRESSION: 1. No stenosis or occlusion. 2. Small filling defect within the a left posterior pulmonary artery compatible with pulmonary embolus. 3. The main pulmonary artery is dilated up to 4.0 cm, which is nonspecific but concerning for pulmonary arterial hypertension. COMMENT: THIS REPORT CONTAINS FINDINGS THAT MAY BE CRITICAL TO PATIENT CARE. The exam findings were verbally communicated by me to TIMMY MILLER via telephone conference at 7:46 PM CDT on 01/20/2024. The findings were acknowledged and understood. REFERENCES: NASCET CRITERIA. The degree of stenosis in the cervical segment of the internal carotid artery is based on NASCET criteria. Normal is no stenosis. Mild is less than 50% stenosis. Moderate is 50-69% stenosis. Severe is 70% to 99% stenosis. Total occlusion is no detectable patent lumen. Head CT 01/20/24 18:33 IMPRESSION: 1. No acute intracranial hemorrhage or edema. 2. Mild cerebral atrophy with moderate small vessel ischemic disease. 3. Improving LEFT frontal scalp hematoma. Study submitted for interpretation on 01/21/2024 at 8:15 a.m. Laboratory Results WBC 10.19 10^3/uL (3.29-11.43) 01/21/24 05:23 RBC 3.36 10^6/uL (3.85-5.65) L 01/21/24 05:23 Hgb 9.80 g/dL (11.27-16.99) L 01/21/24 05:23 Hct 31.1 % (36-47) L 01/21/24 05:23 MCV 92.6 fl (85-98) 01/21/24 05:23 MCH 29.2 pg (27-33) 01/21/24 05:23 MCHC 31.5 g/dL (30-55) 01/21/24 05:23 RDW 17.6 % (12.1-15.1) H 01/21/24 05:23 Plt Count 499 10^3/cmm (157-399) H 01/21/24 05:23 MPV 9.8 fL (7.4-10.4) 01/21/24 05:23 Neut % (Auto) 51.6 % 01/21/24 05:23 Lymph % (Auto) 30.8 % 01/21/24 05:23 [place] % (Auto) 10.5 % 01/21/24 05:23 Eos % (Auto) 6.2 % 01/21/24 05:23 Baso % (Auto) 0.3 % 01/21/24 05:23 Neut # (Auto) 5.26 10^3/uL (1.8-7.7) 01/21/24 05:23 Lymph # (Auto) 3.1 10^3/uL (0.8-4.8) 01/21/24 05:23 [place] # (Auto) 1.1 10^3/uL (0.2-0.9) H 01/21/24 05:23 Eos # (Auto) 0.6 10^3/uL (0.0-0.8) 01/21/24 05:23 Baso # (Auto) 0.0 10^3/uL (0.0-0.1) 01/21/24 05:23 Nucleated RBC % (auto) 0 % 01/21/24 05:23 Nucleated RBCs # 0.0 /100WBC 01/21/24 05:23 D-Dimer 3.29 ug/mLFEU (0-0.59) H 01/20/24 17:40 Sodium 134 mmol/L (136-145) L 01/21/24 05:23 Potassium 4.9 mmol/L (3.5-5.1) 01/21/24 05:23 Chloride 101 mmol/L (98-107) 01/21/24 05:23 Carbon Dioxide 19 mmol/L (22-29) L 01/21/24 05:23 Anion Gap 18.9 (5-19) 01/21/24 05:23 BUN 22 mg/dL (8-23) 01/21/24 05:23 Creatinine 1.1 mg/dL (0.5-0.9) H 01/21/24 05:23 GFR Calculation 49.1 mL/min (90-130) L 01/21/24 05:23 Glucose 90 mg/dL (65-115) 01/21/24 05:23 POC Glucose 91 mg/dL (70-110) 01/21/24 16:32 Estimat Average Glucose 137 01/21/24 05:23 Hemoglobin A1c 6.4 % (4.0-6.0) H 01/21/24 05:23 Calculated Osmolality 281 mOsm/kg (285-295) L 01/21/24 05:23 Calcium 8.8 mg/dL (8.5-10.5) 01/21/24 05:23 Magnesium 2.3 mg/dL (1.7-2.3) 01/21/24 05:23 Iron 59 ug/dL (37-145) 01/21/24 05:23 TIBC 292 mcg/dl 01/21/24 05:23 % Saturation 20.2 % (20-50) 01/21/24 05:23 Unsat Iron Binding 233 ug/dL (112-347) 01/21/24 05:23 Total Bilirubin 0.2 mg/dL (0.15-1.2) 01/20/24 17:40 AST 16 U/L (0-32) 01/20/24 17:40 ALT 8 U/L (0-33) 01/20/24 17:40 Alkaline Phosphatase 161 U/L (35-105) H 01/20/24 17:40 C-Reactive Protein 34.2 mg/L (0.0-4.9) H 01/21/24 05:23 Total Protein 7.2 g/dL (6.6-8.7) 01/20/24 17:40 Albumin 3.3 g/dL (3.5-5.2) L 01/20/24 17:40 Globulin 3.9 g/dL (1.3-4.6) 01/20/24 17:40 Vitamin B12 162 pg/mL (232-1245) L 01/20/24 17:40 TSH 3.85 uIU/mL (0.27-4.20) 01/21/24 05:23 Vitals Last Vital Signs Temp 98.7 F 01/21/24 16:00 Pulse 81 01/21/24 16:00 Resp 18 01/21/24 16:00 BP 115/59 01/21/24 16:00 Pulse Ox 95 01/21/24 16:00 O2 Del Method Room Air 01/21/24 16:00 Discharge Plan Discharge Patient Disposition: Home Condition: Stable Prescriptions: New amlodipine 10 mg Tablet 10 mg PO DAILY Qty: 30 0RF fluticasone propionate 50 mcg/actuation [place],Suspension 1 spray nasal BID Qty: 16 0RF meclizine 12.5 mg tablet 12.5 mg PO DAILY PRN (Reason: dizziness) Qty: 30 0RF Continued acyclovir 400 mg tablet 400 mg PO BID nystatin 100,000 unit/gram cream 1 applic topical BID PRN (Reason: Rash) fluoxetine 20 mg capsule 20 mg PO DAILY hydromorphone 2 mg tablet 2 mg PO Q6H PRN (Reason: Pain) gabapentin 800 mg Tablet 800 mg PO QID morphine 15 mg tablet extended release 15 mg PO BID hydrocodone-acetaminophen 7.5-325 mg tablet 1 tab PO Q6H PRN (Reason: Pain) cetirizine [Zyrtec] 10 mg Tablet 10 mg PO DAILY Discontinued lisinopril 5 mg Tablet 10 mg PO QAM Qty: 0 0RF Discharge Orders: Discharge Order (Routine); Ordered 01/21/24 Ordered By: Miguel Moreno Referrals: Mango Ortiz MD [Primary Care Provider] - (We have notified your physician's clinic of the need for a follow-up appointment to be scheduled. If you have not heard from them within the next 2 business days, please call them directly. faxed for appointment) Discharge Diet: Cardiac Discharge Activity: Resume usual activity and Increase activity as tolerated Patient Instructions: Meclizine (By mouth), Amlodipine (By mouth), Fluticasone (Into the nose), Pulmonary Embolism (DC), Benign Paroxysmal Positional Vertigo (DC), Opioid Safety Discharge Attestations Time Spent in Discharge Care*: greater than 30 min Status at Discharge: Cognitive status at discharge: cognitively intact , Behavioral status at discharge: cooperative , Quality Metrics Clinical Quality Measures [ No reported AMI, CVA or VTE this stay] Coding Level of Care Code 58379 Total time (in minutes) for Discharge: 60 Diagnoses ANITRA (acute kidney injury) N17.9 Osteoarthritis M19.90 Lumbar stenosis with neurogenic claudication M48.062 Sleep apnea G47.30 Falls frequently R29.6 BPPV (benign paroxysmal positional vertigo) H81.10
== END 2024-01-21 18:42 | disposition home or self-care (01) ==
LOC: ER 20:39 → MEDSURG 21:24
PROVIDERS: Admitting Provider Internal Medicine; Emergency Provider Emergency Medicine; PCP Family Medicine; Visit Provider Student in an Organized Health Care Education/Training Program
DX: R42 Dizziness and giddiness (principal); N17.9 Acute kidney failure, unspecified; M19.90 Unspecified osteoarthritis, unspecified site; M48.062 Spinal stenosis, lumbar region with neurogenic claudication; G47.30 Sleep apnea, unspecified; R29.6 Repeated falls; H81.10 Benign paroxysmal vertigo, unspecified ear; Z91.81 History of falling; I10 Essential (primary) hypertension; E11.9 Type 2 diabetes mellitus without complications; M79.7 Fibromyalgia; F32.A Depression, unspecified
CPT/HCPCS: 36415; 36416; 51702; 70450; 70496; 70498; 71045; 80048; 80053; 82607; 82962; 83036; 83540; 83550; 83735; 84443; 85025; 85378; 86140; 93005; 93970; 96372; 96374; 97161; 97530; 99285; G0378; J1650; J1815; J2405; J3420; J7030; J8499; J8597; Q9967

== ENCOUNTER 2024-06-20 22:41 | Inpatient (IN) | payer MEDICARE, SELFPAY ==
[2024-06-20 22:51] VITALS: BP 98/76; PULSE 94; RESP 18; TEMP 36.4; O2SAT 99
--- NOTE | 2024-06-20 22:54 | XRR_ITS ---
PROCEDURE INFORMATION: Exam: XR Chest Exam date and time: 06/20/2024 11:18 PM Age: 69 years old Clinical indication: Cough and shortness of breath; Patient HX: Cough; SOB; AMS TECHNIQUE: Imaging protocol: Radiologic exam of the chest. Views: 1 view. COMPARISON: CR XR chest 1V portable [id number] 01/20/2024 5:52 PM FINDINGS: Lungs: No consolidation. Pleural spaces: No large pleural effusion. No visible pneumothorax. Heart/Mediastinum: No cardiomegaly. Bones/joints: Left reverse shoulder arthroplasty. Osseous demineralization. Degenerative change. No visible acute fracture. XR/XR chest 1V portable [id number] IMPRESSION: No consolidation.
--- NOTE | 2024-06-20 22:54 | CTR_ITS ---
PROCEDURE INFORMATION: Exam: CT Head Without Contrast Exam date and time: 06/20/2024 11:51 PM Age: 69 years old Clinical indication: Altered mental status/memory loss; Patient HX: Lethargy with mild confusion; Additional info: AMS TECHNIQUE: Imaging protocol: Computed tomography of the head without contrast. Radiation optimization: All CT scans at this facility use at least one of these dose optimization techniques: automated exposure control; mA and/or kV adjustment per patient size (includes targeted exams where dose is matched to clinical indication); or iterative reconstruction. COMPARISON: CT angio headneck* [id number] 01/20/2024 6:33 PM RADIATION DOSE METRICS: Total DLP (mGy-cm): 908.08 FINDINGS: Brain: There is moderate cortical atrophy. Low-density changes in the white matter are consistent with nonspecific small vessel chronic ischemic change. There is no intracranial mass, hemorrhage or edema. Cerebral ventricles: No ventriculomegaly. Paranasal sinuses: There is partial opacification of the left maxillary, bilateral sphenoid and some of the ethmoid air cells in keeping with sinus disease not significantly changed from 01/20/2024. Mastoid air cells: Visualized mastoid air cells are well aerated. Bones: No fracture Soft tissues: Unremarkable. CT/CT head wo con* [id number] IMPRESSION: 1. Chronic sinus disease. 2. No acute intracranial finding.
--- NOTE | 2024-06-20 22:56 | ECG_ITS ---
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 Measurements Intervals [place] Rate: 88 P: 55 [place]: 133 QRS: 17 QRSD: 93 T: 76 QT: 354 QTc: 429 Interpretive Statements SINUS RHYTHM WITH MARKED SINUS ARRHYTHMIA Compared to ECG 01/20/2024 17:39:23 No significant changes Electronically Signed On 06-21-2024 20:07:17 [employer] by Adan Aparicio M.D. [email or web address]
[2024-06-20 23:22] LABS: Basophils % 0.2 %; Hematocrit 35.8 % (36-47); Lymphocytes # 5.2 10^3/uL (0.8-4.8); Mean Corpuscular HGB Conc 32.7 g/dL (30-55); Mean Corpuscular Hemoglobin 31.5 pg (27-33); Mean Corpuscular Volume 96.2 fl (85-98); Mean Platelet Volume 10.1 fL (7.4-10.4); Monocytes # 1.1 10^3/uL (0.2-0.9); Monocytes % 5.8 %; Neutrophils % 64.6 %; Nucleated Red Blood Cells % 0.1 %; Platelet Count 476 10^3/cmm (157-399); Red Blood Count 3.72 10^6/uL (3.85-5.65); Red Cell Distribution Width 17.2 % (12.1-15.1); White Blood Count 17.96 10^3/uL (3.29-11.43)
--- NOTE | 2024-06-20 23:35 | ED_ITS ---
Documented by User: GIULIA Lama 06/21/24 00:52 HPI - Weakness 2 General: Chief complaint: Weakness Stated complaint: confusion severely weak legs especially Time Seen by Provider: 06/20/24 22:52 History of Present Illness: Patient is a 69-year-old female that presents to the emergency department with complaints of generalized weakness, intermittent confusion, general malaise and fatigue. Patient was diagnosed last week with shingles along the buttock. She was started on valacyclovir 1 tablet daily but 2 days ago a provider increased her dose to 3 tablets a day. She states that her symptoms developed within 24 hours of increasing her dose. Patient reports: Body aches, shakiness, weakness, decreased urine output,. She denies falls but has a bruise to her left forehead. Patient is alert to location but confused on the date and month. She is ill- appearing Associated symptoms: Reports chills and nausea; Denies chest pain, confusion, dysuria, easy bruising, fever(s), headache(s) or vomiting Review of Systems 2 General: Reports: 10 or more systems reviewed and unremarkable except in HPI and below Const: Reports: chills, body aches, fatigue and malaise; Denies: fever(s), change in appetite or change in weight Eyes: Denies: change in vision, eye discomfort, eye discharge or eye redness ENMT: Denies: throat pain, enlarged tonsils, odynophagia, hoarseness, ear or mastoid pain, ear discharge, change in hearing, tinnitus, nasal discharge, nasal congestion, post nasal drip or sinus pain Card: Reports: dyspnea on exertion and orthopnea; Denies: chest pain, palpitations, irregular heart rhythm, edema or leg pain with exertion Resp: Reports: dyspnea; Denies: productive cough, non-productive cough, wheezing, stridor or chest congestion GI: Reports: abdominal pain, nausea and other (Shingles in the gluteal folds); Denies: vomiting, dysphagia, diarrhea, constipation, bloating, GI cramping or hematochezia : Denies: flank pain, difficulty voiding, dysuria, urinary frequency, urinary urgency, urinary hesitancy, oliguria or hematuria Musc: Denies: neck pain, back pain, extremity pain, joint pain, joint swelling, joint redness, joint warmth or muscle weakness Skin/Breast: Denies: rash, pruritus, erythema, photosensitivity or new lesions Neuro: Reports: lack of coordination, difficulty walking (Weakness in bilateral lower extremity) and difficulty communicating thoughts; Denies: headache(s), numbness in extremities, weakness in extremities, sensory changes, frequent falls (Near falls), dizziness, confusion, Slurred speech present, seizure-like activity or involuntary movements Endo: Denies: polyuria, polydipsia or tired all the time Mic/Lymph: Denies: easy bruising or easy bleeding PFSH ED 2 PFSH: Medical History Decubitus skin ulcer Cataracts, bilateral Sleep apnea Hypertension Diabetes mellitus, type II Osteoarthritis Chronic UTI (urinary tract infection) Fibromyalgia Depression Bipolar disorder Surgical History History of gastric surgery History of cholecystectomy History of knee replacement History of orthopedic surgery Social History Smoking and tobacco/nicotine status: never used tobacco/nicotine Physical Exam 2 Const: COMMON NORMALS: no acute distress and alert O RIENTATION/CONSCIOUSNESS: Yes oriented to person and Yes oriented to place; not oriented to time HENMT: COMMON NORMALS: normocephalic and atraumatic HEAD & SCALP: n ormocephalic and atraumatic Eye: COMMON NORMALS: Equal, round and reactive pupils present and EOMs intact bilaterally PUPIL: Yes Equal, round and reactive pupils present Neck/C-Spine: COMMON NORMALS: full ROM and supple Chest: COMMONS NORMALS: normal inspection of the chest and normal palpation of entire chest wall Resp: COMMON NORMALS: normal respiratory effort, No retractions, No use of accessory muscles and clear to auscultation bilaterally AUSCULTATION: clear to auscultation bilaterally Cardio: COMMON NORMALS: regular rate, regular rhythm and No murmurs present (Cardio) RATE: regular rate RHYTHM: regular rhythm GI: COMMON NORMALS: Soft to palpation and no masses INSPECTION: Yes abdominal distension and Yes central obesity AUSCULTATION: Yes normoactive bowel sounds PALPATION: Yes Soft to palpation and Yes Tenderness to palpation present (GI) (Diffuse abdominal tenderness) Details: other Extremity: COMMON NORMALS: normal to inspection and full ROM Neuro: COMMON NORMALS: moves all extremities and no focal motor deficits S ENSORIUM/ORIENTATION: Yes alert, Yes oriented to person, Yes oriented to place, No oriented to time, Yes Orientation impaired and Yes fluctuating sensorium Psych: COMMON NORMALS: mental status grossly normal, Normal thought process present and cooperative THOUGHT PROCESS: Normal thought process present Skin: COMMON NORMALS: no rashes or lesions noted and no wounds GENERAL SKIN EXAM: no rashes or lesions noted Course 2 Vital Signs: Vital signs: Vital Signs Temperature 97.5 F L 06/20/24 22:51 Pulse Rate 100 06/21/24 02:49 Respiratory Rate 19 H 06/21/24 02:49 Blood Pressure 89/70 06/21/24 02:49 Pulse Oximetry 98 06/21/24 02:49 Oxygen Delivery Me thod Room Air 06/21/24 02:49 MDM - Weakness Medical Decision Making Patient evaluated in the emergency department today for her fatigue, malaise, abdominal pain, confusion. Patient underwent laboratory evaluation that included laboratory studies, EKGs, diagnostics like CT and chest x-ray. She has a leukocytosis of 18,000 with a lactic acid of 4.1. She has a potassium of 5.9. BUN of 82 and a creatinine of 2.7. She does not have chronic renal disease. Majority of the chemistry panel is abnormal. She also has an elevated troponin not particularly surprising with her acute kidney injury. We are going to obtain a 2-hour delta. For her potassium she was treated with albuterol, calcium gluconate, bicarb. I involved my attending early on her evaluation, Dr. Acuña will be assuming care. Patient was started on cefepime and vancomycin. We are going to admit her once imaging is complete Lab Data 06/20/24 23:14 06/20/24 23:14 Radiology Impressions Chest X-Ray 06/20/24 22:54 IMPRESSION: No consolidation. Head CT 06/20/24 22:54 IMPRESSION: 1. Chronic sinus disease. 2. No acute intracranial finding. Chest/Abdomen/Pelvis CT 06/20/24 23:40 IMPRESSION: 1. No acute findings. 2. Dilated main pulmonary artery, can be seen with pulmonary hypertension. 3. Small hiatal hernia. IMPRESSION: 1. No acute findings in the abdomen/pelvis. 2. Chronic appearing L1 compression deformity with approximately 50% height loss and mild osseous retropulsion resulting in probable moderate spinal canal narrowing, new from 04/10/2023 lumbar spine radiographs. 3. Hepatic steatosis. 4. Small hiatal hernia. Laboratory Results WBC 17.96 10^3/uL (3.29-11.43) H 06/20/24 23:14 RBC 3.72 10^6/uL (3.85-5.65) L 06/20/24 23:14 Hgb 11.70 g/dL (11.27-16.99) 06/20/24 23:14 Hct 35.8 % (36-47) L 06/20/24 23:14 MCV 96.2 fl (85-98) 06/20/24 23:14 MCH 31.5 pg (27-33) 06/20/24 23:14 MCHC 32.7 g/dL (30-55) 06/20/24 23:14 RDW 17.2 % (12.1-15.1) H 06/20/24 23:14 Plt Count 476 10^3/cmm (157-399) H 06/20/24 23:14 MPV 10.1 fL (7.4-10.4) 06/20/24 23:14 Neut % (Auto) 64.6 % 06/20/24 23:14 Lymph % (Auto) 29.0 % 06/20/24 23:14 Wink[place] % (Auto) 5.8 % 06/20/24 23:14 Eos % (Auto) 0.0 % 06/20/24 23:14 Baso % (Auto) 0.2 % 06/20/24 23:14 Neut # (Auto) 11.60 10^3/uL (1.8-7.7) H 06/20/24 23:14 Lymph # (Auto) 5.2 10^3/uL (0.8-4.8) H 06/20/24 23:14 [place]ink[place] # (Auto) 1.1 10^3/uL (0.2-0.9) H 06/20/24 23:14 Eos # (Auto) 0.0 10^3/uL (0.0-0.8) 06/20/24 23:14 Baso # (Auto) 0.0 10^3/uL (0.0-0.1) 06/20/24 23:14 Nucleated RBC % (auto) 0.1 % 06/20/24 23:14 Nucleated RBCs # 0.0 /100WBC 06/20/24 23:14 Sodium 131 mmol/L (136-145) L 06/20/24 23:14 Potassium 5.9 mmol/L (3.5-5.1) H 06/20/24 23:14 Chloride 97 mmol/L (98-107) L 06/20/24 23:14 Carbon Dioxide 16 mmol/L (22-29) L 06/20/24 23:14 Anion Gap 23.9 (5-19) H 06/20/24 23:14 BUN 82 mg/dL (8-23) H* D 06/20/24 23:14 Creatinine 2.7 mg/dL (0.5-0.9) H 06/20/24 23:14 GFR Calculation Not Reportable 06/20/24 23:14 Glucose 160 mg/dL (65-115) H 06/20/24 23:14 Calculated Osmolality 300 mOsm/kg (285-295) H 06/20/24 23:14 Lactic Acid 4.1 mmol/L (0.5-2.2) H* 06/20/24 23:14 Lactic Acid (Sepsis) 1.9 mmol/L (0.5-2.2) 06/21/24 00:55 Calcium 9.2 mg/dL (8.5-10.5) 06/20/24 23:14 Total Bilirubin 1.6 mg/dL (0.15-1.2) H 06/20/24 23:14 AST 54 U/L (0-32) H 06/20/24 23:14 ALT 20 U/L (0-33) 06/20/24 23:14 Alkaline Phosphatase 213 U/L (35-105) H 06/20/24 23:14 Troponin T Baseline 25 ng/L (0-10) H 06/20/24 23:14 Troponin T 120 Minute 22.49 ng/L (0-10) H 06/21/24 00:55 Delta Troponin T -2.51 ABS# (0-10) L 06/21/24 00:55 NT-Pro-B Natriuret Pep 634 pg/mL (0-125) H 06/20/24 23:14 Total Protein 6.2 g/dL (6.6-8.7) L 06/20/24 23:14 Albumin 2.9 g/dL (3.5-5.2) L 06/20/24 23:14 Globulin 3.3 g/dL (1.3-4.6) 06/20/24 23:14 Urine Color Yellow (Yellow) 06/21/24 02:30 Urine Appearance Clear (CLEAR) 06/21/24 02:30 Urine pH 5.0 (5-7) 06/21/24 02:30 Ur Specific [place] 1.033 (1.005-1.030) H 06/21/24 02:30 Urine Protein Negative (Negative) 06/21/24 02:30 Urine Glucose (UA) Negative (Normal) 06/21/24 02:30 Urine Ketones Negative (Negative) 06/21/24 02:30 Urine Blood Negative (Negative) 06/21/24 02:30 Urine Nitrate Negative (Negative) 06/21/24 02:30 Urine Bilirubin Negative (Negative) 06/21/24 02:30 Urine Urobilinogen 1.0 mg/dL (Negative) 06/21/24 02:30 Ur Leukocyte Esterase Negative (Negative) 06/21/24 02:30 Urine RBC 0-2 /hpf (0-2) 06/21/24 02:30 Urine WBC 0-5 /hpf (0-5) 06/21/24 02:30 Ur Squamous Epith Cells 0-5 /hpf (0-5) 06/21/24 02:30 Amorphous Sediment Not Reportable 06/21/24 02:30 Urine Bacteria None seen /hpf (NONE) 06/21/24 02:30 Hyaline Casts 11.16 /lpf 06/21/24 02:30 Coronavirus (PCR) Negative (Negative) 06/21/24 00:15 Influenza A (PCR) Negative (Negative) 06/21/24 00:15 Influenza Type B (PCR) Negative (Negative) 06/21/24 00:15 RSV (PCR) Negative (Negative) 06/21/24 00:15 Discharge Plan Discharge Patient Disposition: Admitted As Inpatient Clinical Impression: ANITRA (acute kidney injury), Leukocytosis, Acidosis, lactic, Acute hyperkalemia Condition: Serious Prescriptions: No Action acyclovir 400 mg tablet 400 mg PO BID nystatin 100,000 unit/gram cream 1 applic topical BID PRN (Reason: Rash) fluoxetine 20 mg capsule 20 mg PO DAILY hydromorphone 2 mg tablet 2 mg PO Q6H PRN (Reason: Pain) gabapentin 800 mg Tablet 800 mg PO QID morphine 15 mg tablet extended release 15 mg PO BID hydrocodone-acetaminophen 7.5-325 mg tablet 1 tab PO Q6H PRN (Reason: Pain) amlodipine 10 mg Tablet 10 mg PO DAILY Qty: 30 0RF fluticasone propionate 50 mcg/actuation [place],Suspension 1 spray nasal BID Qty: 16 0RF meclizine 12.5 mg tablet 12.5 mg PO DAILY PRN (Reason: dizziness) Qty: 30 0RF cetirizine [Zyrtec] 10 mg Tablet 10 mg PO DAILY Referrals: Mango Ortiz MD [Primary Care Provider] - Coding Level of Care Code ED Physical Plant Manager for Chg Fwd Related Data Home Medications Medication Instructions Recorded Confirmed gabapentin 800 mg tablet 800 mg PO QID 01/21/20 01/20/24 hydromorphone 2 mg tablet 2 mg PO Q6H PRN Pain 01/21/20 01/20/24 morphine 15 mg tablet,extended 15 mg PO BID 01/21/20 01/20/24 release acyclovir 400 mg tablet 400 mg PO BID 04/29/23 01/20/24 fluoxetine 20 mg capsule 20 mg PO DAILY 04/29/23 01/20/24 nystatin 100,000 unit/gram topical 1 applic topical BID PRN Rash 04/29/23 01/20/24 cream cetirizine 10 mg tablet (Zyrtec) 10 mg PO DAILY 05/15/23 01/20/24 hydrocodone 7.5 mg-acetaminophen 1 tab PO Q6H PRN Pain 01/20/24 01/20/24 325 mg tablet Previous Rx's Medication Instructions Recorded amlodipine 10 mg tablet 10 mg PO DAILY #30 tabs 01/21/24 fluticasone propionate 50 1 spray nasal BID #16 grams 01/21/24 mcg/actuation nasal spray,suspension meclizine 12.5 mg tablet 12.5 mg PO DAILY PRN dizziness #30 01/21/24 tabs Allergies Allergy/AdvReac Type Severity Reaction Status Date / Time adhesive tape Allergy Unknown ALGY-Bliste Verified 06/20/24 22:59 r erythromycin base Allergy Unknown ALGY-Rash Verified 06/20/24 22:59 formaldehyde Allergy Unknown anaphylaxis Verified 06/20/24 22:59 ketorolac Allergy Unknown ALGY-Rash Verified 06/20/24 22:59 latex Allergy Unknown ADR-Irritab Verified 06/20/24 22:59 le meperidine Allergy Unknown nausea Verified 06/20/24 22:59 metoprolol [From Toprol XL] Allergy Unknown Unknown Verified 06/20/24 22:59 NSAIDS (Non-Steroidal Allergy Unknown ADR-Abdominal Verified 06/20/24 22:59 Anti-Inflamma Pain [NSAIDS (Non-Steroidal Anti-Inflammatory Drug)] oxybutynin Allergy Unknown ADR-Faintin Verified 06/20/24 22:59 g Penicillins Allergy Unknown ALGY-Rash Verified 06/20/24 22:59 pregabalin Allergy Unknown ADV-Weaknes Verified 06/20/24 22:59 s sitagliptin [From Januvia] Allergy Unknown ADR-Diarrhe Verified 06/20/24 22:59 a Qmquqhf-NDX-BpF Reductase Allergy Unknown Unknown Verified 06/20/24 22:59 Inhibitor [Fdtqcmj-MJF-SgX Reductase Inhibitors] topiramate Allergy Unknown ADR-Diarrhe Verified 06/20/24 22:59 a zinc Allergy Unknown ALGY-Bliste Verified 06/20/24 22:59 r levofloxacin [From Levaquin] Allergy ADR-Muscle Verified 06/20/24 22:59 Pain Documented by User: Tong Acuña DO 06/21/24 03:37 HPI - Weakness 2 General: Chief complaint: Weakness Stated complaint: confusion severely weak legs especially Time Seen by Provider: 06/20/24 22:52 PFSH ED 2 PFSH: Medical History Decubitus skin ulcer Cataracts, bilateral Sleep apnea Hypertension Diabetes mellitus, type II Osteoarthritis Chronic UTI (urinary tract infection) Fibromyalgia Depression Bipolar disorder Surgical History History of gastric surgery History of cholecystectomy History of knee replacement History of orthopedic surgery Social History Smoking and tobacco/nicotine status: never used tobacco/nicotine Course 2 Vital Signs: Vital signs: Vital Signs Temperature 97.5 F L 06/20/24 22:51 Pulse Rate 100 06/21/24 02:49 Respiratory Rate 19 H 06/21/24 02:49 Blood Pressure 89/70 06/21/24 02:49 Pulse Oximetry 98 06/21/24 02:49 Oxygen Delivery Me thod Room Air 06/21/24 02:49 MDM - Weakness Medical Decision Making Patient evaluated in the emergency department today for her fatigue, malaise, abdominal pain, confusion. Patient underwent laboratory evaluation that included laboratory studies, EKGs, diagnostics like CT and chest x-ray. She has a leukocytosis of 18,000 with a lactic acid of 4.1. She has a potassium of 5.9. BUN of 82 and a creatinine of 2.7. She does not have chronic renal disease. Majority of the chemistry panel is abnormal. She also has an elevated troponin not particularly surprising with her acute kidney injury. We are going to obtain a 2-hour delta. For her potassium she was treated with albuterol, calcium gluconate, bicarb. I involved my attending early on her evaluation, Dr. Acuña will be assuming care. Patient was started on cefepime and vancomycin. We are going to admit her once imaging is complete This patient was originally seen by TOVA Clayton.? I agree with her history, evaluation, and treatment. I have seen and evaluated this patient as well. Acute renal failure, with hyperkalemia in the setting of significant leukocytosis. She is afebrile. CTs of the chest abdomen pelvis are essentially nonacute. Head CT is nonacute as well. She will require ICU admission given acute renal failure with electrolyte disorder. Hospitalist is aware. Urinalysis is pending. She was originally ordered a sepsis bolus, but with reduction lactate on repeat testing, was cut short, as the patient has not been hypotensive, so has received 1.5 L so far. Lab Data 06/20/24 23:14 06/20/24 23:14 Radiology Impressions Chest X-Ray 06/20/24 22:54 IMPRESSION: No consolidation. Head CT 06/20/24 22:54 IMPRESSION: 1. Chronic sinus disease. 2. No acute intracranial finding. Chest/Abdomen/Pelvis CT 06/20/24 23:40 IMPRESSION: 1. No acute findings. 2. Dilated main pulmonary artery, can be seen with pulmonary hypertension. 3. Small hiatal hernia. IMPRESSION: 1. No acute findings in the abdomen/pelvis. 2. Chronic appearing L1 compression deformity with approximately 50% height loss and mild osseous retropulsion resulting in probable moderate spinal canal narrowing, new from 04/10/2023 lumbar spine radiographs. 3. Hepatic steatosis. 4. Small hiatal hernia. Laboratory Results WBC 17.96 10^3/uL (3.29-11.43) H 06/20/24 23:14 RBC 3.72 10^6/uL (3.85-5.65) L 06/20/24 23:14 Hgb 11.70 g/dL (11.27-16.99) 06/20/24 23:14 Hct 35.8 % (36-47) L 06/20/24 23:14 MCV 96.2 fl (85-98) 06/20/24 23:14 MCH 31.5 pg (27-33) 06/20/24 23:14 MCHC 32.7 g/dL (30-55) 06/20/24 23:14 RDW 17.2 % (12.1-15.1) H 06/20/24 23:14 Plt Count 476 10^3/cmm (157-399) H 06/20/24 23:14 MPV 10.1 fL (7.4-10.4) 06/20/24 23:14 Neut % (Auto) 64.6 % 06/20/24 23:14 Lymph % (Auto) 29.0 % 06/20/24 23:14 Winkler % (Auto) 5.8 % 06/20/24 23:14 Eos % (Auto) 0.0 % 06/20/24 23:14 Baso % (Auto) 0.2 % 06/20/24 23:14 Neut # (Auto) 11.60 10^3/uL (1.8-7.7) H 06/20/24 23:14 Lymph # (Auto) 5.2 10^3/uL (0.8-4.8) H 06/20/24 23:14 Winkler # (Auto) 1.1 10^3/uL (0.2-0.9) H 06/20/24 23:14 Eos # (Auto) 0.0 10^3/uL (0.0-0.8) 06/20/24 23:14 Baso # (Auto) 0.0 10^3/uL (0.0-0.1) 06/20/24 23:14 Nucleated RBC % (auto) 0.1 % 06/20/24 23:14 Nucleated RBCs # 0.0 /100WBC 06/20/24 23:14 Sodium 131 mmol/L (136-145) L 06/20/24 23:14 Potassium 5.9 mmol/L (3.5-5.1) H 06/20/24 23:14 Chloride 97 mmol/L (98-107) L 06/20/24 23:14 Carbon Dioxide 16 mmol/L (22-29) L 06/20/24 23:14 Anion Gap 23.9 (5-19) H 06/20/24 23:14 BUN 82 mg/dL (8-23) H* D 06/20/24 23:14 Creatinine 2.7 mg/dL (0.5-0.9) H 06/20/24 23:14 GFR Calculation Not Reportable 06/20/24 23:14 Glucose 160 mg/dL (65-115) H 06/20/24 23:14 Calculated Osmolality 300 mOsm/kg (285-295) H 06/20/24 23:14 Lactic Acid 4.1 mmol/L (0.5-2.2) H* 06/20/24 23:14 Lactic Acid (Sepsis) 1.9 mmol/L (0.5-2.2) 06/21/24 00:55 Calcium 9.2 mg/dL (8.5-10.5) 06/20/24 23:14 Total Bilirubin 1.6 mg/dL (0.15-1.2) H 06/20/24 23:14 AST 54 U/L (0-32) H 06/20/24 23:14 ALT 20 U/L (0-33) 06/20/24 23:14 Alkaline Phosphatase 213 U/L (35-105) H 06/20/24 23:14 Troponin T Baseline 25 ng/L (0-10) H 06/20/24 23:14 Troponin T 120 Minute 22.49 ng/L (0-10) H 06/21/24 00:55 Delta Troponin T -2.51 ABS# (0-10) L 06/21/24 00:55 NT-Pro-B Natriuret Pep 634 pg/mL (0-125) H 06/20/24 23:14 Total Protein 6.2 g/dL (6.6-8.7) L 06/20/24 23:14 Albumin 2.9 g/dL (3.5-5.2) L 06/20/24 23:14 Globulin 3.3 g/dL (1.3-4.6) 06/20/24 23:14 Urine Color Yellow (Yellow) 06/21/24 02:30 Urine Appearance Clear (CLEAR) 06/21/24 02:30 Urine pH 5.0 (5-7) 06/21/24 02:30 Ur Specific [place] 1.033 (1.005-1.030) H 06/21/24 02:30 Urine Protein Negative (Negative) 06/21/24 02:30 Urine Glucose (UA) Negative (Normal) 06/21/24 02:30 Urine Ketones Negative (Negative) 06/21/24 02:30 Urine Blood Negative (Negative) 06/21/24 02:30 Urine Nitrate Negative (Negative) 06/21/24 02:30 Urine Bilirubin Negative (Negative) 06/21/24 02:30 Urine Urobilinogen 1.0 mg/dL (Negative) 06/21/24 02:30 Ur Leukocyte Esterase Negative (Negative) 06/21/24 02:30 Urine RBC 0-2 /hpf (0-2) 06/21/24 02:30 Urine WBC 0-5 /hpf (0-5) 06/21/24 02:30 Ur Squamous Epith Cells 0-5 /hpf (0-5) 06/21/24 02:30 Amorphous Sediment Not Reportable 06/21/24 02:30 Urine Bacteria None seen /hpf (NONE) 06/21/24 02:30 Hyaline Casts 11.16 /lpf 06/21/24 02:30 Coronavirus (PCR) Negative (Negative) 06/21/24 00:15 Influenza A (PCR) Negative (Negative) 06/21/24 00:15 Influenza Type B (PCR) Negative (Negative) 06/21/24 00:15 RSV (PCR) Negative (Negative) 06/21/24 00:15 All radiology interpretation(s) finalized by discharge Critical Care Time 2 Critical Care Time: Critical Care Time: Yes Total Critical Care Time: 40 Attestation: This case had a high probability of a clinically significant, sudden, or life threatening deterioration of this patient's condition which required my full and direct attention, intervention and personal management. Time is independent of any procedures performed Discharge Plan Discharge Patient Disposition: Admitted As Inpatient Clinical Impression: ANITRA (acute kidney injury), Leukocytosis, Acidosis, lactic, Acute hyperkalemia Condition: Serious Prescriptions: No Action acyclovir 400 mg tablet 400 mg PO BID nystatin 100,000 unit/gram cream 1 applic topical BID PRN (Reason: Rash) fluoxetine 20 mg capsule 20 mg PO DAILY hydromorphone 2 mg tablet 2 mg PO Q6H PRN (Reason: Pain) gabapentin 800 mg Tablet 800 mg PO QID morphine 15 mg tablet extended release 15 mg PO BID hydrocodone-acetaminophen 7.5-325 mg tablet 1 tab PO Q6H PRN (Reason: Pain) amlodipine 10 mg Tablet 10 mg PO DAILY Qty: 30 0RF fluticasone propionate 50 mcg/actuation [place],Suspension 1 spray nasal BID Qty: 16 0RF meclizine 12.5 mg tablet 12.5 mg PO DAILY PRN (Reason: dizziness) Qty: 30 0RF cetirizine [Zyrtec] 10 mg Tablet 10 mg PO DAILY Referrals: Mango Ortiz MD [Primary Care Provider] - Coding Level of Care Code ED Physical Plant Manager for Chg Fwd Related Data Home Medications Medication Instructions Recorded Confirmed gabapentin 800 mg tablet 800 mg PO QID 01/21/20 01/20/24 hydromorphone 2 mg tablet 2 mg PO Q6H PRN Pain 01/21/20 01/20/24 morphine 15 mg tablet,extended 15 mg PO BID 01/21/20 01/20/24 release acyclovir 400 mg tablet 400 mg PO BID 04/29/23 01/20/24 fluoxetine 20 mg capsule 20 mg PO DAILY 04/29/23 01/20/24 nystatin 100,000 unit/gram topical 1 applic topical BID PRN Rash 04/29/23 01/20/24 cream cetirizine 10 mg tablet (Zyrtec) 10 mg PO DAILY 05/15/23 01/20/24 hydrocodone 7.5 mg-acetaminophen 1 tab PO Q6H PRN Pain 01/20/24 01/20/24 325 mg tablet Previous Rx's Medication Instructions Recorded amlodipine 10 mg tablet 10 mg PO DAILY #30 tabs 01/21/24 fluticasone propionate 50 1 spray nasal BID #16 grams 01/21/24 mcg/actuation nasal spray,suspension meclizine 12.5 mg tablet 12.5 mg PO DAILY PRN dizziness #30 01/21/24 tabs Allergies Allergy/AdvReac Type Severity Reaction Status Date / Time adhesive tape Allergy Unknown ALGY-Bliste Verified 06/20/24 22:59 r erythromycin base Allergy Unknown ALGY-Rash Verified 06/20/24 22:59 formaldehyde Allergy Unknown anaphylaxis Verified 06/20/24 22:59 ketorolac Allergy Unknown ALGY-Rash Verified 06/20/24 22:59 latex Allergy Unknown ADR-Irritab Verified 06/20/24 22:59 le meperidine Allergy Unknown nausea Verified 06/20/24 22:59 metoprolol [From Toprol XL] Allergy Unknown Unknown Verified 06/20/24 22:59 NSAIDS (Non-Steroidal Allergy Unknown ADR-Abdominal Verified 06/20/24 22:59 Anti-Inflamma Pain [NSAIDS (Non-Steroidal Anti-Inflammatory Drug)] oxybutynin Allergy Unknown ADR-Faintin Verified 06/20/24 22:59 g Penicillins Allergy Unknown ALGY-Rash Verified 06/20/24 22:59 pregabalin Allergy Unknown ADV-Weaknes Verified 06/20/24 22:59 s sitagliptin [From Januvia] Allergy Unknown ADR-Diarrhe Verified 06/20/24 22:59 a Scnghki-OYA-BuT Reductase Allergy Unknown Unknown Verified 06/20/24 22:59 Inhibitor [Ydtmcdr-VHW-AoL Reductase Inhibitors] topiramate Allergy Unknown ADR-Diarrhe Verified 06/20/24 22:59 a zinc Allergy Unknown ALGY-Bliste Verified 06/20/24 22:59 r levofloxacin [From Levaquin] Allergy ADR-Muscle Verified 06/20/24 22:59 Pain
--- NOTE | 2024-06-20 23:40 | CTR_ITS ---
PROCEDURE INFORMATION: Exam: CT Chest With Contrast; Diagnostic Exam date and time: 06/20/2024 11:55 PM Age: 69 years old Clinical indication: Pain and abnormal findings; Abnormal lab test; Abnormal kidney function lab tests and elevated wbc and other: Elevated bun with phillip. Elevated bilirubin and base trop. Other: N/a; Abdominal pain; Generalized; Shortness of breath; Prior surgery; Surgery date: 6+ months; Surgery type: Total shoulder. Gastric. Gb. Patient HX: SOB with diffuse abd pain. High bun with phillip, elevated bilirubin, wbc of 18k, and elevated base troponin. ; Additional info: AMS, abd pain, SOB TECHNIQUE: Imaging protocol: Diagnostic computed tomography of the chest with contrast. Radiation optimization: All CT scans at this facility use at least one of these dose optimization techniques: automated exposure control; mA and/or kV adjustment per patient size (includes targeted exams where dose is matched to clinical indication); or iterative reconstruction. Contrast material: OMNI 350; Contrast volume: 80 ml; Contrast route: INTRAVENOUS (IV); COMPARISON: CR (CHEST, ) 06/20/2024 11:18 PM RADIATION DOSE METRICS: Total DLP (mGy-cm): 1233.8 FINDINGS: Lungs: No pulmonary mass or consolidation. Pleural spaces: No pneumothorax. No pleural effusion. Heart: No cardiomegaly or pericardial effusion. Lymph nodes: Calcified lymph nodes are present, consistent with sequela of prior granulomatous disease. Vasculature: Dilated main pulmonary artery measuring 4.1 cm. No aortic aneurysm or dissection. Mild thoracic aortic atherosclerosis. Diaphragm: Small hiatal hernia. Bones/joints: No acute fracture. Thoracic spondylosis. Soft tissues: Unremarkable. PROCEDURE INFORMATION: Exam: CT Abdomen And Pelvis With Contrast Exam date and time: 06/20/2024 11:55 PM Age: 69 years old Clinical indication: Pain and abnormal findings; Abnormal lab test; Abnormal kidney function lab tests and elevated wbc and other: Elevated bun with phillip. Elevated bilirubin and base trop. Other: N/a; Abdominal pain; Generalized; Shortness of breath; Prior surgery; Surgery date: 6+ months; Surgery type: Total shoulder. Gastric. Gb. Patient HX: SOB with diffuse abd pain. High bun with phillip, elevated bilirubin, wbc of 18k, and elevated base troponin. ; Additional info: AMS, abd pain, SOB TECHNIQUE: Imaging protocol: Computed tomography of the abdomen and pelvis with contrast. Radiation optimization: All CT scans at this facility use at least one of these dose optimization techniques: automated exposure control; mA and/or kV adjustment per patient size (includes targeted exams where dose is matched to clinical indication); or iterative reconstruction. Contrast material: OMNI 350; Contrast volume: 80 ml; Contrast route: INTRAVENOUS (IV); COMPARISON: CT abdomen pelvis w con* [id number] 06/10/2019 1:15 PM RADIATION DOSE METRICS: Total DLP (mGy-cm): 1233.8 FINDINGS: Diaphragm: Small hiatal hernia. Liver: Hepatic steatosis. Gallbladder and biliary ducts: Cholecystectomy. Pancreas: Fatty replacement of the pancreas. No main duct dilation. Spleen: Splenic granulomas, otherwise unremarkable. Adrenal glands: No nodules. Kidneys and ureters: No mass. No hydroureteronephrosis. No nephroureterolithiasis. Stomach and bowel: Surgical changes of the stomach and bowel. No bowel obstruction. Appendix: Normal appendix. Intraperitoneal space: No free air. No significant fluid collection. Vasculature: No aortic aneurysm. Mild diffuse narrowing of the celiac artery. Lymph nodes: No enlarged lymph nodes. Urinary bladder: Unremarkable as visualized. Reproductive: Unremarkable as visualized. Bones/joints: Chronic posttraumatic deformity of the right inferior pubic ramus. Degenerative changes. Chronic appearing L1 compression deformity with approximately 50% height loss and mild osseous retropulsion resulting in probable moderate spinal canal narrowing, new from 04/10/2023 lumbar spine radiographs. Soft tissues: Small-moderate fat containing right ventrolateral abdominal wall hernia. CT/CT chest abdpel w/*[id number] IMPRESSION: 1. No acute findings. 2. Dilated main pulmonary artery, can be seen with pulmonary hypertension. 3. Small hiatal hernia. IMPRESSION: 1. No acute findings in the abdomen/pelvis. 2. Chronic appearing L1 compression deformity with approximately 50% height loss and mild osseous retropulsion resulting in probable moderate spinal canal narrowing, new from 04/10/2023 lumbar spine radiographs. 3. Hepatic steatosis. 4. Small hiatal hernia.
[2024-06-20 23:41] LABS: Troponin(5th) Baseline 25 ng/L (0-10)
[2024-06-20 23:43] LABS: Lactic Sepsis W/Reflex 4.1 mmol/L (0.5-2.2)
[2024-06-20] MEDS: sodium chloride 0.9% 500 ML 1000 ML IV (23:46)
[2024-06-20 23:49] LABS: Alanine Aminotransferase 20 U/L (0-33); Albumin Level 2.9 g/dL (3.5-5.2); Alkaline Phosphatase 213 U/L (35-105); Anion Gap 23.9 (5-19); Aspartate Amino Transferase 54 U/L (0-32); Calcium 9.2 mg/dL (8.5-10.5); Carbon Dioxide 16 mmol/L (22-29); Chloride 97 mmol/L (98-107); Creatinine Clr Calc Pharmacy 21.1116; Globulin 3.3 g/dL (1.3-4.6); Glucose 160 mg/dL (65-115); NT Pro B Type Natriuretic Pept 634 pg/mL (0-125); Osmolality Calculated 300 mOsm/kg (285-295); Potassium 5.9 mmol/L (3.5-5.1); Sodium 131 mmol/L (136-145); Total Bilirubin 1.6 mg/dL (0.15-1.2); Total Protein 6.2 g/dL (6.6-8.7)
[2024-06-20 23:52] LABS: Blood Urea Nitrogen 82 mg/dL (8-23)
[2024-06-20] MEDS: iohexol 350 mg/mL 500 mL Btl (per mL) IV (23:53)
[2024-06-20 23:59] VITALS: BP 190/100; PULSE 92; RESP 18; O2SAT 100
[2024-06-21] VITALS (35 sets, daily range): BP systolic 76–166; BP diastolic 34–95; PULSE 74–123; RESP 11–35; TEMP 36.6–36.8; O2SAT 86–99
[2024-06-21] MEDS: albuterol 2.5 mg/3 mL Neb INHALATION (00:25)
--- NOTE | 2024-06-21 00:30 | PC.NURSE ---
While changing pt into gown, pt noted to have wounds to bilat thighs, buttocks, and under fold of abd. Wounds appear to be an ulcer type wound. Pt states they have been treating these wounds for years. No official diagnosis, but pt states she was told she has herpes.
[2024-06-21 00:46] LABS: Reflex Lactate Order REFLEX LACTIC ORDERD
--- NOTE | 2024-06-21 00:56 | ECG_ITS ---
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 Measurements Intervals [place] Rate: 92 P: 67 MS: 141 QRS: 38 QRSD: 90 T: 81 QT: 341 QTc: 423 Interpretive Statements SINUS RHYTHM POSSIBLE LATERAL MYOCARDIAL INFARCTION , OF INDETERMINATE AGE [30 ms Q WAVE IN I/aVL/V5/V6] Compared to ECG 06/20/2024 23:35:28 Myocardial infarct finding now present Sinus arrhythmia no longer present Electronically Signed On 06-21-2024 20:29:47 MEDICAL SALES SPECIALIST by Adan Aparicio M.D. [id number]
[2024-06-21 01:02] LABS: Covid PCR NEGATIVE (Negative); Influenza A NEGATIVE (Negative); Influenza B NEGATIVE (Negative); Respiratory Syncytial Virus Ce NEGATIVE (Negative)
[2024-06-21] MEDS: cefepime 1,000 mg SDV 1000 MG IVP (01:07)
[2024-06-21] MEDS: sodium chloride 0.9% 1,000 ML 999 ML IV (01:07)
[2024-06-21] MEDS: calcium gluconate 0.1 gm/mL 10% SDV 10mL 1 GM IVP (01:08)
[2024-06-21] MEDS: sodium bicarbonate 8.4% 1 mEq/mL 50mL Syr 100 MEQ IVP (01:08)
[2024-06-21] MEDS: vancomycin 1,250 MG/250 ML PIGGYBACK 166.67 MG IV (01:16)
[2024-06-21 01:24] LABS: Troponin 5 2HR 22.49 ng/L (0-10)
[2024-06-21 01:25] LABS: Lactic Acid level (Lactate) 1.9 mmol/L (0.5-2.2)
[2024-06-21 01:28] LABS: Troponin 5 2HR Delta -2.51 ABS# (0-10)
--- NOTE | 2024-06-21 01:56 | PC.NURSE ---
Reflex lactic was drawn prior to complete sepsis fluid boluses. Spoke with MD secondary to pt BNP being elevated and ordered to discontinue further fluid boluses. Pt has had a total of 1300 NS at this time. Further bolus discontinued per MD.
--- NOTE | 2024-06-21 02:32 | PC.NURSE ---
BP has been difficult to obtain secondary to pt tremors. Multiple cuffs used with multiple locations. All BP's running in the 190's systolic, which pt states is inaccurate. Will attempt manual BP.
[2024-06-21 03:01] LABS: Bilirubin Urine Negative (Negative); Blood Urine Negative (Negative); Glucose Urine UA Negative (Normal); Ketones Urine Negative (Negative); Leukocyte Esterase Urine Negative (Negative); Nitrate Urine Negative (Negative); Protein Urine Negative (Negative); Urine Appearance Clear (CLEAR); Urine Color Yellow (Yellow)
[2024-06-21 03:06] LABS: Add Urine Microscopic? YES; Bacteria Urine None Seen /hpf; Hyaline Casts Urine 11.16 /lpf; RBC Urine 0-2 /hpf (0-2); Squamous Epithelial Cell Urine 0-5 /hpf (0-5); Universal Test for UA Present (0); WBC Urine 0-5 /hpf (0-5)
[2024-06-21 03:35] LABS: Specific Gravity, Urine 1.033 (1.005-1.030)
--- NOTE | 2024-06-21 04:58 | P.HP_ITS ---
Providers/Chief Complaint 2 Primary Care Provider: Mango Ortiz MD Chief Complaint: confusion severely weak legs especially History of Present Illness Aiyana Sorto is a 69 year old female with a past medical history of chronic pain on multiple opiate medications including hydrocodone, morphine, Dilaudid, history of cataracts, type 2 diabetes, depression, who presents [facility] due to bilateral extremity weakness, fatigue, malaise, altered mental status. Currently patient is alert to person, to place, not to time she can answer questions she can follow commands but her response times are delayed and she frequently becomes confused. She has no specific complaints, no chest pain, shortness of breath, abdominal pain, diarrhea, no headache, blurry vision, no neck pain she does have chronic back pain. According to patient's , they went up to [place] for her eye appointment, she was recently diagnosed with shingles across her buttocks, is on valacyclovir no recent falls, no recent injuries, no history of kidney failure she has had poor appetite, Review of Systems 2 Const: Reports: fatigue and malaise; Denies: fever(s) or chills Card: Denies: chest pain Resp: Denies: dyspnea GI: Denies: abdominal pain Medications/Allergies Home Medications Medication Instructions Recorded Confirmed Last Taken Type gabapentin 800 mg tablet 800 mg PO QID 01/21/20 01/20/24 01/20/24 History hydromorphone 2 mg tablet 2 mg PO Q6H PRN Pain 01/21/20 01/20/24 01/20/24 History morphine 15 mg tablet,extended 15 mg PO BID 01/21/20 01/20/24 01/20/24 09:00 History release acyclovir 400 mg tablet 400 mg PO BID 04/29/23 01/20/24 01/20/24 History fluoxetine 20 mg capsule 20 mg PO DAILY 04/29/23 01/20/24 01/20/24 History nystatin 100,000 unit/gram topical 1 applic topical BID PRN Rash 04/29/23 01/20/24 Unknown History cream cetirizine 10 mg tablet (Zyrtec) 10 mg PO DAILY 05/15/23 01/20/24 01/20/24 History hydrocodone 7.5 mg-acetaminophen 1 tab PO Q6H PRN Pain 01/20/24 01/20/24 01/20/24 History 325 mg tablet amlodipine 10 mg tablet 10 mg PO DAILY #30 tabs 01/21/24 Unknown Rx fluticasone propionate 50 1 spray nasal BID #16 grams 01/21/24 Unknown Rx mcg/actuation nasal spray,suspension meclizine 12.5 mg tablet 12.5 mg PO DAILY PRN dizziness #30 01/21/24 Unknown Rx tabs Allergies Allergy/AdvReac Type Severity Reaction Status Date / Time adhesive tape Allergy Unknown ALGY-Bliste Verified 06/20/24 22:59 r erythromycin base Allergy Unknown ALGY-Rash Verified 06/20/24 22:59 formaldehyde Allergy Unknown anaphylaxis Verified 06/20/24 22:59 ketorolac Allergy Unknown ALGY-Rash Verified 06/20/24 22:59 latex Allergy Unknown ADR-Irritab Verified 06/20/24 22:59 le meperidine Allergy Unknown nausea Verified 06/20/24 22:59 metoprolol [From Toprol XL] Allergy Unknown Unknown Verified 06/20/24 22:59 NSAIDS (Non-Steroidal Allergy Unknown ADR-Abdominal Verified 06/20/24 22:59 Anti-Inflamma Pain [NSAIDS (Non-Steroidal Anti-Inflammatory Drug)] oxybutynin Allergy Unknown ADR-Faintin Verified 06/20/24 22:59 g Penicillins Allergy Unknown ALGY-Rash Verified 06/20/24 22:59 pregabalin Allergy Unknown ADV-Weaknes Verified 06/20/24 22:59 s sitagliptin [From Januvia] Allergy Unknown ADR-Diarrhe Verified 06/20/24 22:59 a Xiojxxg-PXD-TcW Reductase Allergy Unknown Unknown Verified 06/20/24 22:59 Inhibitor [Giddjbe-SGP-CkU Reductase Inhibitors] topiramate Allergy Unknown ADR-Diarrhe Verified 06/20/24 22:59 a zinc Allergy Unknown ALGY-Bliste Verified 06/20/24 22:59 r levofloxacin [From Levaquin] Allergy ADR-Muscle Verified 06/20/24 22:59 Pain PFSH Acute 2 PFSH: Medical History Decubitus skin ulcer Cataracts, bilateral Sleep apnea Hypertension Diabetes mellitus, type II Osteoarthritis Chronic UTI (urinary tract infection) Fibromyalgia Depression Bipolar disorder Surgical History History of gastric surgery History of cholecystectomy History of knee replacement History of orthopedic surgery Social History Smoking and tobacco/nicotine status: never used tobacco/nicotine Vitals/I&O/Wt Last Vital Signs Temp 97.5 F L 06/20/24 22:51 Pulse 97 06/21/24 04:05 Resp 21 H 06/21/24 04:05 BP 115/67 06/21/24 04:05 Pulse Ox 97 06/21/24 04:05 O2 Del Method Room Air 06/21/24 04:05 06/20/24 06/20/24 06/21/24 14:59 22:59 06:59 Intake Total 700 / 700 Balance 700 / 700 Weight last 48 hrs Weight 99.79 kg Physical Exam 2 Const: COMMON NORMALS: no acute distress ORIENTATION/CONSCIOUSNESS: Yes awake, Yes oriented to person and Yes oriented to place; not oriented to time Resp: COMMON NORMALS: normal respiratory effort, No retractions, No use of accessory muscles and clear to auscultation bilaterally AUSCULTATION: clear to auscultation bilaterally Cardio: COMMON NORMALS: no JVD, regular rate, regular rhythm, S1 normal heart sound present and S2 normal heart sound present RATE: regular rate RHYTHM: regular rhythm HEART SOUNDS: S1 normal heart sound present and S2 normal heart sound present GI: COMMON NORMALS: Normal to inspection, nondistended, normoactive bowel sounds present, Soft to palpation and non-tender Extremity: COMMON NORMALS: no calf tenderness and no pedal edema Neuro: COMMON NORMALS: CN's II-XII intact bilaterally and moves all extremities Urinary Catheter Management: Latex Free: Cath Placed During This Visit: yes Urinary Catheter Date of Insertion: 06/21/24 Urinary Catheter Time of Insertion: 02:30 Data 06/20/24 23:14 06/20/24 23:14 Micro: Microbiology 06/21/24 00:57 Blood Culture - Preliminary Blood SPECIMEN COLLECTED 06/21/24 00:55 Blood Culture - Preliminary Blood SPECIMEN COLLECTED A&P Assessment and plan (1) Acute encephalopathy: (2) ANITRA (acute kidney injury): (3) Acidosis, lactic: (4) Acute hyperkalemia: (5) Leukocytosis: (6) Uremia: (7) Shingles: Plan Acute encephalopathy, metabolic, toxic -Likely component of uremia -Possible component of polypharmacy is on multiple narcotics including Dilaudid, morphine, hydrocodone -Does have leukocytosis, source is unclear -No evidence of UTI -No evidence on pneumonia -CT abdomen pelvis no focal findings -Was diagnosed with shingles, no neck pain, no neck stiffness, but can consider lumbar puncture based on clinical progress -Neurochecks -Aspiration precautions -NIH stroke scale Sepsis features met given leukocytosis, altered mental status, ANITRA, Leukocytosis -Continue vancomycin, Zosyn -Follow blood culture -Sputum culture -Will consider lumbar puncture based on clinical progress Acute kidney injury -With metabolic acidosis - uremia -Has received bicarb, calcium gluconate, and fluids in the emergency room -Hyperkalemia -Recheck CMP -Continue IV fluids -Monitor creatinine, monitor potassium Type 2 diabetes mellitus, low-dose sliding scale Recent history of shingles -Is on acyclovir Full code Heparin for DVT prophylaxis Attestations 2 Medical Necessity Statement*: Patient requires hospitalization for acute renal failure, uremia, hyperkalemia, acute encephalopathy, leukocytosis, inpatient, greater than 2 midnights Diagnoses Acute encephalopathy G93.40 ANITRA (acute kidney injury) N17.9 Acidosis, lactic E87.20 Acute hyperkalemia E87.5 Leukocytosis D72.829 Uremia N19 Shingles B02.9
[2024-06-21 05:28] LABS: Estmated Average Glucose 120; Hemoglobin A1C 5.8 % (4.0-6.0)
[2024-06-21 05:36] LABS: Erythrocyte Sedimentation Rate 42 mm/hr (0-15)
[2024-06-21] MEDS: HYDROcodone-acetaminophen 7.5-325 mg Tablet 1 TAB PO (06:00)
--- NOTE | 2024-06-21 06:20 | ECG_ITS ---
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 Measurements Intervals [place] Rate: 94 P: 72 FL: 118 QRS: 19 QRSD: 86 T: 80 QT: 332 QTc: 416 Interpretive Statements SINUS RHYTHM WITH SHORT FL INTERVAL Compared to ECG 06/21/2024 00:47:29 Short FL interval now present Myocardial infarct finding no longer present Electronically Signed On 06-21-2024 20:29:31 HIGH SCHOOL GUIDANCE COUNSELOR by Adan Aparicio M.D. [email or web address]
[2024-06-21] MEDS: sodium chloride 0.9% 1,000 ML 75 ML IV ×2 (06:27→19:47)
[2024-06-21] MEDS: heparin 5,000 unit/mL INJ 1 mL 5000 UNIT SUBCUT ×2 (06:27→17:38)
--- NOTE | 2024-06-21 06:28 | PC.NURSE ---
Wounds Pictures of patient's ulcerations sent to Dr. Jefferson through protected messaging. Order received for wound culture as well as to dress open ulcerations.
[2024-06-21 08:02] LABS: Glucose Point of Care 135 mg/dL (70-110)
--- NOTE | 2024-06-21 08:06 | PC.PHAR ---
Addendum entered by Carol Alston 06/21/24 08:34: Verified all 4 narcotics with [facility]. All were picked up and Pharmacist stated he has had a conversation with the provider, who wants to continue pt on all 4, at this time. Original Note: Went through pt medication bottles in her room. Pain meds were not included, but pt has picked up 4 different CII pain meds this month. Will call pharmacy when they open at 8:30 to verify if all were picked up. Pt also has 2 eye drops in the room with her and she states she has not been getting them since she arrived.
[2024-06-21] MEDS: fluoxetine 20 mg Capsule PO (08:12)
[2024-06-21] MEDS: acyclovir 400 mg Tablet PO (08:12)
[2024-06-21 08:46] LABS: Troponin 5 6HR 20.74 ng/L (0-10)
--- NOTE | 2024-06-21 08:50 | PHA.VACGOAL ---
Vancomycin Goal - Goal Vancomycin Goal:: 15-20 mg/L Vancomycin Indication:: Other (SEPSIS) - Therapy Current therapy:: Cefepime Day of therpy:: Day []of [] . Actual body weight (kg): 197 lb - Data Labs: WBC 17.96 10^3/uL (3.29-11.43) H 06/20/24 23:14 RBC 3.72 10^6/uL (3.85-5.65) L 06/20/24 23:14 Hgb 11.70 g/dL (11.27-16.99) 06/20/24 23:14 Hct 35.8 % (36-47) L 06/20/24 23:14 MCV 96.2 fl (85-98) 06/20/24 23:14 MCH 31.5 pg (27-33) 06/20/24 23:14 MCHC 32.7 g/dL (30-55) 06/20/24 23:14 RDW 17.2 % (12.1-15.1) H 06/20/24 23:14 Sodium 131 mmol/L (136-145) L 06/20/24 23:14 Potassium 5.9 mmol/L (3.5-5.1) H 06/20/24 23:14 Chloride 97 mmol/L (98-107) L 06/20/24 23:14 Carbon Dioxide 16 mmol/L (22-29) L 06/20/24 23:14 Anion Gap 23.9 (5-19) H 06/20/24 23:14 BUN 82 mg/dL (8-23) H* D 06/20/24 23:14 Creatinine 2.7 mg/dL (0.5-0.9) H 06/20/24 23:14 GFR Calculation Not Reportable 06/20/24 23:14 Last dialysis session:: N/A Treatment plan:: new consult Regimen:: LOADING DOSE OF 1250 MG GIVEN IN ER INTERMITTENT DOSING POST LOAD PER DOSING PROTOCOL Follow up:: Checking serum vancomycin level (ordered as trough level) 24 hours after post loading dose. Will continue to monitor and follow up daily.
[2024-06-21 08:51] LABS: Troponin 5 6HR Delta -4.26 ng/L (0-12)
[2024-06-21 10:10] LABS: Procalcitonin 0.22 ng/mL (0-0.5); Thyroid Stimulating Hormone 1.32 uIU/mL (0.27-4.20)
[2024-06-21 10:21] LABS: Alanine Aminotransferase 15 U/L (0-33); Albumin Level 2.1 g/dL (3.5-5.2); Alkaline Phosphatase 145 U/L (35-105); Anion Gap 14.3 (5-19); Aspartate Amino Transferase 41 U/L (0-32); Blood Urea Nitrogen 67 mg/dL (8-23); C Reactive Protein 39.9 mg/L (0.0-4.9); Calcium 7.2 mg/dL (8.5-10.5); Carbon Dioxide 18 mmol/L (22-29); Chloride 111 mmol/L (98-107); Chol HDL Ratio 1.97 mg/dL (0.0-4.40); Cholesterol 114 mg/dL (0-200); Creatinine Clr Calc Pharmacy 35.7348; Globulin 2.8 g/dL (1.3-4.6); Glucose 109 mg/dL (65-115); HDL Cholesterol 58 mg/dL (60-100); LDL Cholesterol Calculated 39 mg/dL (50-129); LDL HDL Ratio 0.67 RATIO (0.00-3.22); Osmolality Calculated 308 mOsm/kg (285-295); Potassium 4.3 mmol/L (3.5-5.1); Sodium 139 mmol/L (136-145); Total Bilirubin 1.1 mg/dL (0.15-1.2); Total Protein 4.9 g/dL (6.6-8.7); Triglycerides 85 mg/dL (0-150)
[2024-06-21 10:23] LABS: Creatine Phosphokinase 530 U/L (26-192)
[2024-06-21 11:27] LABS: Glucose Point of Care 141 mg/dL (70-110)
--- NOTE | 2024-06-21 12:10 | P.PN_ITS ---
Subjective 2 Subjective: Admitted overnight. Seen with family member at bedside. Patient is awake but slightly confused. As per the family and the patient has been having worsening mentation and confusion since Friday. Today is Friday. Confusion started on . Patient was followed up by ophthalmology as an outpatient and was diagnosed of HSV keratitis recently and started on valacyclovir. As per patient and family was at bedside she has not had any headache, nausea or vomiting. Patient denies any photophobia. Patient is on multiple pain medications which she gets from her PCP. As per family but she has been on pain medications for more than 30 years. Medications are provided to her on a weekly basis by her as she also has history of overdosing on pain medication in the past. Vitals/I&O/Wt Last Vital Signs Temp 97.8 F 06/21/24 04:30 Pulse 104 H 06/21/24 10:30 Resp 26 H 06/21/24 10:30 BP 103/51 06/21/24 07:30 Pulse Ox 99 06/21/24 10:30 O2 Del Method Room Air 06/21/24 08:23 06/20/24 06/21/24 06/21/24 22:59 06:59 14:59 Intake Total 700 / 700 Output Total 950 / 950 Balance 700 / 700 -950 / -950 Weight last 48 hrs Weight 89.358 kg Weight 89.5 kg Weight 99.79 kg Physical Exam 2 Const: COMMON NORMALS: no acute distress ORIENTATION/CONSCIOUSNESS: Yes awake, Yes oriented to person and Yes oriented to place; not oriented to time Neck/C-Spine: COMMON NORMALS: no JVD Resp: COMMON NORMALS: normal respiratory effort, No retractions, No use of accessory muscles and clear to auscultation bilaterally AUSCULTATION: clear to auscultation bilaterally Cardio: COMMON NORMALS: no JVD, regular rate, regular rhythm, S1 normal heart sound present and S2 normal heart sound present RATE: regular rate RHYTHM: regular rhythm HEART SOUNDS: S1 normal heart sound present and S2 normal heart sound present GI: COMMON NORMALS: Normal to inspection, nondistended, normoactive bowel sounds present, Soft to palpation and non-tender PALPATION: Yes Soft to palpation Extremity: COMMON NORMALS: no calf tenderness and no pedal edema Neuro: COMMON NORMALS: CN's II-XII intact bilaterally and moves all extremities SENSORIUM/ORIENTATION: Yes oriented to person, Yes oriented to place and No oriented to time Skin: OTHER: Urinary Catheter Management: Latex Free: Cath Placed During This Visit: yes Reason for Continuing Indwelling Catheter: Accurate Measurement of Urinary Output in Critically Ill Patients Urinary Catheter Date of Insertion: 06/21/24 Urinary Catheter Time of Insertion: 02:30 Data 06/21/24 12:39 06/21/24 08:07 Micro: Microbiology 06/21/24 00:57 Blood Culture - Preliminary Blood SPECIMEN COLLECTED 06/21/24 00:55 Blood Culture - Preliminary Blood SPECIMEN COLLECTED A&P Assessment and plan (1) Acute encephalopathy: (2) ANITRA (acute kidney injury): (3) Uremia: (4) Leukocytosis: (5) Decubitus skin ulcer: (6) 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 Patient does have ANITRA with uremia. Also takes multiple pain medications including morphine 50 mg twice daily, hydrocodone 5 mg every 6 hours as needed, hydromorphone every 6 hours as needed. States gets these medications from her PCP. Has been on these medications for over 30 years as per family members. Does give history of pain medication overdose in the past. For now has been getting her medications weekly by her . Frequent reorientation. Sitter if needed. CT head negative for concern for stroke. Patient does have recent history of HSV keratitis. Denies any neck pain, nausea, vomiting without neck stiffness. If does not improve mentation within next 24 hours we will consider lumbar puncture. Aspiration precaution. Patient on multiple pain medication as an outpatient. For now we will continue to hold off other than hydrocodone 5 mg every 6 hours as needed. Change gabapentin 200 mg 3 times daily from 800 mg 3 times daily. Sepsis: SIRS: Tachycardic, Febrile, Leukocytosis Source: Decub ulcer, cellulitis, possible meningitis End organ damage: Acute infectious encephalopathy, ANITRA Lactic acid elevated. Resolved now. Patient did not receive full 30 mL/kg BW given concerns for renal failure. Monitor blood pressures. Keep mean artery pressure 65 mmHg. Follow-up blood culture, MRSA swab, trend procalcitonin. Check urine bacterial antigen. UA negative for concerns for UTI. For now continue with broad-spectrum antibiotics with IV cefepime, vancomycin as per creatinine clearance. Decub ulcer: Bilateral thigh decub ulcer with concerns of mild cellulitis. Dressing with Hydrofera Blue. Antibiotic as above. Frequent repositioning. HSV keratitis: Continue with oral valacyclovir 1 g twice daily. Dose as per creatinine clearance. Patient will need to follow-up with ophthalmology as an outpatient. Continue with outpatient antibiotic drops as before. ANITRA: Baseline creatinine recently 1.1. On admission 2.7 with uremia. Also had hyperkalemia. Creatinine coming down to 1.5. BUN improving. Hyperkalemia resolved. Continue to monitor BMP every 12 hours. Repeat in afternoon. Medical insufficient done for nephrotoxic drugs. Strict input charting. Sloan catheter. Hold off on home dose of lisinopril. NS @ 75 cc/hr Hypertension: Goal blood pressure less than 140/90 mmHg. Hold off on home dose of amlodipine and lisinopril for now. Will restart as per goal blood pressures. Type 2 diabetes mellitus: A1c of 5.8. Recently 6.4. Insulin sliding scale low- dose protocol with ACHS. Continue other chronic medications including Prozac. 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
[2024-06-21 12:14] LABS: Amphetamines Screen Urine Negative (Negative); Barbiturates Screen Urine Negative (Negative); Benzodiazepines Screen Urine Negative (Negative); Cocaine Screen Urine Negative (Negative); Opiate Screen Urine Positive (Negative); PCP Screen Urine Negative (Negative); THC Screen Urine Negative (Negative)
[2024-06-21 12:32] LABS: Vitamin B12 539 pg/mL (232-1245)
[2024-06-21 12:52] LABS: MRSA PCR OZH (swab) NOT DETECTED (Not Detecte)
[2024-06-21 13:06] LABS: Basophils % 0.1 %; Hematocrit 32.5 % (36-47); Lymphocytes # 3.5 10^3/uL (0.8-4.8); Lymphocytes % 22.7 %; Mean Corpuscular HGB Conc 32.6 g/dL (30-55); Mean Corpuscular Hemoglobin 31.1 pg (27-33); Mean Corpuscular Volume 95.3 fl (85-98); Mean Platelet Volume 10.4 fL (7.4-10.4); Monocytes % 6.7 %; Neutrophils # 10.71 10^3/uL (1.8-7.7); Neutrophils % 70.1 %; Nucleated Red Blood Cells % 0 %; Platelet Count 424 10^3/cmm (157-399); Red Blood Count 3.41 10^6/uL (3.85-5.65); Red Cell Distribution Width 17.2 % (12.1-15.1); White Blood Count 15.27 10^3/uL (3.29-11.43)
[2024-06-21] MEDS: HYDROcodone-acetaminophen 5-325 mg Tablet 1 TAB PO ×2 (14:56→21:43)
[2024-06-21] MEDS: gabapentin 100 mg Capsule 200 MG PO ×3 (14:57→21:42)
[2024-06-21 17:15] LABS: Glucose Point of Care 158 mg/dL (70-110)
[2024-06-21] MEDS: insulin lispro 100 unit/1 mL SUBCUT (17:38)
[2024-06-21] MEDS: valACYclovir 1,000 mg Tablet 1000 MG PO (17:38)
[2024-06-21] MEDS: polymyxin-trimethoprim Op Soln 10 mL Btl 1 DROP EYE-BOTH (18:48)
[2024-06-21 22:16] LABS: Glucose Point of Care 109 mg/dL (70-110)
[2024-06-22] VITALS (19 sets, daily range): BP systolic 95–199; BP diastolic 52–98; PULSE 66–109; RESP 14–29; TEMP 36.8–37.2; O2SAT 92–96
[2024-06-22 01:07] LABS: Bacillus cereus group Not Detected (NOT DETECT); Bacillus subtillis group Not Detected (NOT DETECT); Corynebacterium Not Detected (NOT DETECT); Cutibacterium acnes (P.acnes) Not Detected (NOT DETECT); Enterococcus Not Detected (NOT DETECT); Enterococcus faecalis Not Detected (NOT DETECT); Enterococcus faecium Not Detected (NOT DETECT); Lactobacillus species Not Detected (NOT DETECT); Listeria Not Detected (NOT DETECT); Listeria monocytogenes Not Detected (NOT DETECT); Micrococcus Not Detected (NOT DETECT); Pan Candida Not Detected (NOT DETECT); Pan Gram-Negative Not Detected (NOT DETECT); Staphylococcus epidermidis Detected (NOT DETECT); Staphylococcus lugdunensis Not Detected (NOT DETECT); Staphylococcus species Detected (NOT DETECT); Streptococcus agalactiae Not Detected (NOT DETECT); Streptococcus anginosus group Not Detected (NOT DETECT); Streptococcus pneumoniae Not Detected (NOT DETECT); Streptococcus pyogenes Not Detected (NOT DETECT); Streptococcus species Not Detected (NOT DETECT); mecA Detected (NOT DETECT); mecC Not Detected (NOT DETECT)
[2024-06-22 01:22] LABS: Basophils % 0.1 %; Eosinophils % 0.2 %; Hematocrit 28.9 % (36-47); Lymphocytes # 3.3 10^3/uL (0.8-4.8); Lymphocytes % 27.3 %; Mean Corpuscular HGB Conc 32.9 g/dL (30-55); Mean Corpuscular Hemoglobin 31.1 pg (27-33); Mean Corpuscular Volume 94.8 fl (85-98); Monocytes # 0.9 10^3/uL (0.2-0.9); Monocytes % 7.4 %; Neutrophils # 7.89 10^3/uL (1.8-7.7); Neutrophils % 64.5 %; Nucleated Red Blood Cells % 0 %; Platelet Count 336 10^3/cmm (157-399); Red Blood Count 3.05 10^6/uL (3.85-5.65); Red Cell Distribution Width 17.2 % (12.1-15.1); White Blood Count 12.22 10^3/uL (3.29-11.43)
[2024-06-22] MEDS: cefepime 1,000 mg SDV 500 MG IVP (01:53)
[2024-06-22 01:56] LABS: Vancomycin Trough 10.8 ug/mL (10-15)
[2024-06-22 01:57] LABS: Magnesium 1.9 mg/dL (1.7-2.3)
[2024-06-22 02:00] LABS: Alanine Aminotransferase 18 U/L (0-33); Albumin Level 2.3 g/dL (3.5-5.2); Alkaline Phosphatase 174 U/L (35-105); Anion Gap 15.6 (5-19); Aspartate Amino Transferase 45 U/L (0-32); Blood Urea Nitrogen 51 mg/dL (8-23); Calcium 8.5 mg/dL (8.5-10.5); Carbon Dioxide 21 mmol/L (22-29); Chloride 104 mmol/L (98-107); Creatinine Clr Calc Pharmacy 44.6685; Globulin 2.6 g/dL (1.3-4.6); Glucose 107 mg/dL (65-115); Osmolality Calculated 296 mOsm/kg (285-295); Potassium 4.6 mmol/L (3.5-5.1); Sodium 136 mmol/L (136-145); Total Bilirubin 0.7 mg/dL (0.15-1.2); Total Protein 4.9 g/dL (6.6-8.7)
[2024-06-22] MEDS: HYDROcodone-acetaminophen 5-325 mg Tablet 1 TAB PO ×2 (04:59→11:09)
[2024-06-22] MEDS: heparin 5,000 unit/mL INJ 1 mL 5000 UNIT SUBCUT ×2 (04:59→17:03)
[2024-06-22 07:26] LABS: Glucose Point of Care 102 mg/dL (70-110)
[2024-06-22] MEDS: sodium chloride 0.9% 1,000 ML 75 ML IV ×2 (09:02→20:05)
[2024-06-22] MEDS: gabapentin 100 mg Capsule 200 MG PO ×4 (09:45→20:05)
[2024-06-22] MEDS: fluoxetine 20 mg Capsule PO (09:45)
[2024-06-22] MEDS: valACYclovir 1,000 mg Tablet 1000 MG PO ×2 (09:45→17:03)
[2024-06-22] MEDS: polymyxin-trimethoprim Op Soln 10 mL Btl 1 DROP EYE-BOTH ×4 (09:46→20:05)
[2024-06-22] MEDS: vancomycin 1,250 MG/250 ML PIGGYBACK 166.67 MG IV (11:06)
[2024-06-22 11:20] LABS: Glucose Point of Care 184 mg/dL (70-110)
[2024-06-22] MEDS: insulin lispro 100 unit/1 mL SUBCUT (12:39)
[2024-06-22] MEDS: morphine ER (12 HR) 15 mg Tablet PO ×2 (12:39→17:03)
[2024-06-22 13:30] LABS: Glucose Point of Care 118 mg/dL (70-110)
--- NOTE | 2024-06-22 15:12 | PM.PN ---
Subjective Subjective: No acute events overnight. Patient is a lot more awake and alert today morning. Able to have complete conversation. Still having mild episodes of confusion. Seen with family at bedside. Has remained on room air. Hemodynamically stable. Afebrile. Denies any nausea, vomiting, headache, photophobia, dizziness. Vitals/I&O/Wt Last Vital Signs Temp 98.2 F 06/22/24 00:00 Pulse 109 H 06/22/24 13:00 Resp 14 06/22/24 13:00 BP 165/98 06/22/24 13:00 Pulse Ox 92 06/22/24 04:00 O2 Del Method Room Air 06/22/24 04:00 06/22/24 06/22/24 06/22/24 06:59 14:59 22:59 Intake Total 1476.75 / 1476.75 Output Total 800 / 2300 550 / 550 Balance -800 / -1250 926.75 / 926.75 Weight last 48 hrs Weight 91 kg Weight 89.358 kg Weight 89.5 kg Weight 99.79 kg Physical Exam Const: COMMON NORMALS: no acute distress ORIENTATION/CONSCIOUSNESS: Yes awake, Yes oriented to person and Yes oriented to place; not oriented to time Neck/C-Spine: COMMON NORMALS: no JVD Resp: COMMON NORMALS: normal respiratory effort, No retractions, No use of accessory muscles and clear to auscultation bilaterally AUSCULTATION: clear to auscultation bilaterally Cardio: COMMON NORMALS: no JVD, regular rate, regular rhythm, S1 normal heart sound present and S2 normal heart sound present RATE: regular rate RHYTHM: regular rhythm HEART SOUNDS: S1 normal heart sound present and S2 normal heart sound present GI: COMMON NORMALS: Normal to inspection, nondistended, normoactive bowel sounds present, Soft to palpation and non-tender PALPATION: Yes Soft to palpation Extremity: COMMON NORMALS: no calf tenderness and no pedal edema Neuro: COMMON NORMALS: CN's II-XII intact bilaterally and moves all extremities SENSORIUM/ORIENTATION: Yes oriented to person, Yes oriented to place and No oriented to time Skin: OTHER: Urinary Catheter Management: Latex Free: Cath Placed During This Visit: yes Reason for Continuing Indwelling Catheter: Accurate Measurement of Urinary Output in Critically Ill Patients Urinary Catheter Date of Insertion: 06/21/24 Urinary Catheter Time of Insertion: 02:30 Data 06/22/24 01:11 06/22/24 01:11 Micro: Microbiology 06/22/24 13:09 Blood Culture - Preliminary Blood SPECIMEN COLLECTED 06/22/24 13:09 Blood Culture - Preliminary Blood SPECIMEN COLLECTED 06/21/24 00:57 Blood Culture - Preliminary Blood NEGATIVE TO DATE 06/21/24 00:55 Blood Culture - Preliminary Blood A&P Assessment and plan (1) Acute encephalopathy: (2) ANITRA (acute kidney injury): (3) Uremia: (4) Leukocytosis: (5) Decubitus skin ulcer: (6) 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 Patient does have ANITRA with uremia. Also takes multiple pain medications including morphine 50 mg twice daily, hydrocodone 5 mg every 6 hours as needed, hydromorphone every 6 hours as needed. States gets these medications from her PCP. Has been on these medications for over 30 years as per family members. Does give history of pain medication overdose in the past. For now has been getting her medications weekly by her . Frequent reorientation. Sitter if needed. CT head negative for concern for stroke. Patient does have recent history of HSV keratitis. Denies any neck pain, nausea, vomiting without neck stiffness. If does not improve mentation within next 24 hours we will consider lumbar puncture. Aspiration precaution. Patient on multiple pain medication as an outpatient. For now we will continue to hold off other than hydrocodone 5 mg every 6 hours as needed. Change gabapentin 200 mg 3 times daily from 800 mg 3 times daily. Sepsis: SIRS: Tachycardic, Febrile, Leukocytosis Source: Decub ulcer, cellulitis, possible meningitis End organ damage: Acute infectious encephalopathy, ANITRA Lactic acid elevated. Resolved now. Patient did not receive full 30 mL/kg BW given concerns for renal failure. Monitor blood pressures. Keep mean artery pressure 65 mmHg. Follow-up blood culture, MRSA swab, trend procalcitonin. Check urine bacterial antigen. UA negative for concerns for UTI. For now continue with broad-spectrum antibiotics with IV cefepime, vancomycin as per creatinine clearance. Decub ulcer: Bilateral thigh decub ulcer with concerns of mild cellulitis. Dressing with Hydrofera Blue. Antibiotic as above. Frequent repositioning. HSV keratitis: Continue with oral valacyclovir 1 g twice daily. Dose as per creatinine clearance. Patient will need to follow-up with ophthalmology as an outpatient. Continue with outpatient antibiotic drops as before. ANITRA: Baseline creatinine recently 1.1. On admission 2.7 with uremia. Also had hyperkalemia. Creatinine coming down to 1.5. BUN improving. Hyperkalemia resolved. Continue to monitor BMP every 12 hours. Repeat in afternoon. Medical insufficient done for nephrotoxic drugs. Strict input charting. Sloan catheter. Hold off on home dose of lisinopril. NS @ 75 cc/hr Hypertension: Goal blood pressure less than 140/90 mmHg. Hold off on home dose of amlodipine and lisinopril for now. Will restart as per goal blood pressures. Type 2 diabetes mellitus: A1c of 5.8. Recently 6.4. Insulin sliding scale low-dose protocol with ACHS. Continue other chronic medications including Prozac. Cardiac diet Heparin 5000 every 12 hourly for DVT prophylaxis Protonix for PUD prophylaxis Full code Plan for the day: Mentation seems to be improving. Most likely in setting of chronic pain medications in setting of ANITRA. Low concerns for meningitis for now as patient does not have any meningeal symptoms. Continue with IV hydration. Monitor BMP daily. Uremia and creatinine improving. Hyperkalemia resolved. MRSA swab negative. Discontinue vancomycin. Continue with IV cefepime. Patient is on multiple pain medication as an outpatient for many years. Continue with [place] every 6 hours as needed. Add home dose of morphine 15 mg twice daily. Goal blood pressure less than 140/90 mmHg. Restart home dose of amlodipine 10 mg oral daily. Discussed discharge plan in detail with the patient. Discussed about possible transition to SNF versus home with home health. Patient is agreeable for home with home health. Will consult case management. Patient would require home health for wound care and medications[facility] DC Sloan catheter. 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
--- NOTE | 2024-06-22 16:31 | PC.NURSE ---
Dr. Moreno notified about Sloan Catheter. Dr. Moreno gave orders to leave until tomorrow.
[2024-06-22] MEDS: amlodipine 10 mg Tablet PO (17:02)
[2024-06-22 17:10] LABS: Glucose Point of Care 83 mg/dL (70-110)
[2024-06-22 20:49] LABS: Glucose Point of Care 162 mg/dL (70-110)
[2024-06-23] MEDS: cefepime 1,000 mg SDV 1000 MG IVP (00:07)
[2024-06-23 03:38] VITALS: BP 120/67; PULSE 80; RESP 18; TEMP 36.8; O2SAT 97
[2024-06-23] MEDS: heparin 5,000 unit/mL INJ 1 mL 5000 UNIT SUBCUT ×2 (05:07→17:21)
[2024-06-23 06:23] LABS: Glucose Point of Care 114 mg/dL (70-110)
[2024-06-23 08:13] VITALS: BP 116/76; PULSE 82; RESP 18; TEMP 37; O2SAT 97
[2024-06-23] MEDS: morphine ER (12 HR) 15 mg Tablet PO ×2 (08:30→17:22)
[2024-06-23] MEDS: fluoxetine 20 mg Capsule PO (08:30)
[2024-06-23] MEDS: polymyxin-trimethoprim Op Soln 10 mL Btl 1 DROP EYE-BOTH ×4 (08:30→20:23)
[2024-06-23] MEDS: valACYclovir 1,000 mg Tablet 1000 MG PO ×2 (08:30→17:21)
[2024-06-23] MEDS: gabapentin 100 mg Capsule 200 MG PO ×4 (08:30→20:23)
[2024-06-23] MEDS: amlodipine 10 mg Tablet PO (08:30)
[2024-06-23 08:34] LABS: Basophils % 0.2 %; Eosinophils % 0.4 %; Hematocrit 33.4 % (36-47); Lymphocytes # 3.5 10^3/uL (0.8-4.8); Lymphocytes % 35.7 %; Mean Corpuscular HGB Conc 29.6 g/dL (30-55); Mean Corpuscular Hemoglobin 31.1 pg (27-33); Mean Platelet Volume 10.5 fL (7.4-10.4); Monocytes # 0.6 10^3/uL (0.2-0.9); Monocytes % 6.1 %; Neutrophils # 5.57 10^3/uL (1.8-7.7); Neutrophils % 56.5 %; Nucleated Red Blood Cells % 0 %; Platelet Count 279 10^3/cmm (157-399); Red Blood Count 3.18 10^6/uL (3.85-5.65); Red Cell Distribution Width 18.1 % (12.1-15.1); White Blood Count 9.86 10^3/uL (3.29-11.43)
[2024-06-23 08:46] VITALS: PULSE 80; RESP 16; O2SAT 98
[2024-06-23 08:54] LABS: Magnesium 1.6 mg/dL (1.7-2.3)
[2024-06-23 08:55] LABS: Alanine Aminotransferase 17 U/L (0-33); Albumin Level 2.2 g/dL (3.5-5.2); Alkaline Phosphatase 171 U/L (35-105); Anion Gap 14.3 (5-19); Aspartate Amino Transferase 35 U/L (0-32); Blood Urea Nitrogen 24 mg/dL (8-23); Calcium 8.3 mg/dL (8.5-10.5); Carbon Dioxide 20 mmol/L (22-29); Chloride 106 mmol/L (98-107); Creatinine Clr Calc Pharmacy 69.3675; Glucose 163 mg/dL (65-115); Osmolality Calculated 290 mOsm/kg (285-295); Potassium 4.3 mmol/L (3.5-5.1); Sodium 136 mmol/L (136-145); Total Bilirubin 0.5 mg/dL (0.15-1.2); Total Protein 5.2 g/dL (6.6-8.7)
[2024-06-23] MEDS: sodium chloride 0.9% 1,000 ML 75 ML IV (09:38)
[2024-06-23] MEDS: vancomycin 1,250 MG/250 ML PIGGYBACK 166.67 MG IV (09:38)
[2024-06-23 11:41] LABS: Glucose Point of Care 140 mg/dL (70-110)
--- NOTE | 2024-06-23 12:00 | P.PN_ITS ---
Subjective 2 Subjective: No acute events overnight. Patient remains hemodynamically stable and afebrile. States she is feeling better. More awake today. Able to have complete conversation. Vitals/I&O/Wt Last Vital Signs Temp 98.6 F 06/23/24 08:13 Pulse 80 06/23/24 08:46 Resp 16 06/23/24 08:46 BP 116/76 06/23/24 08:13 Pulse Ox 98 06/23/24 08:46 O2 Del Method Room Air 06/23/24 08:46 06/22/24 06/23/24 06/23/24 22:59 06:59 14:59 Intake Total 1548.75 / 3025.50 120 / 3145.50 2980 / 2980 Output Total 600 / 1150 250 / 1400 Balance 948.75 / 1875.50 -130 / 1745.50 2980 / 2980 Weight last 48 hrs Weight 95.164 kg Weight 91 kg Physical Exam 2 Const: COMMON NORMALS: no acute distress ORIENTATION/CONSCIOUSNESS: Yes awake, Yes oriented to person and Yes oriented to place; not oriented to time Neck/C-Spine: COMMON NORMALS: no JVD Resp: COMMON NORMALS: normal respiratory effort, No retractions, No use of accessory muscles and clear to auscultation bilaterally AUSCULTATION: clear to auscultation bilaterally Cardio: COMMON NORMALS: no JVD, regular rate, regular rhythm, S1 normal heart sound present and S2 normal heart sound present RATE: regular rate RHYTHM: regular rhythm HEART SOUNDS: S1 normal heart sound present and S2 normal heart sound present GI: COMMON NORMALS: Normal to inspection, nondistended, normoactive bowel sounds present, Soft to palpation and non-tender PALPATION: Yes Soft to palpation Extremity: COMMON NORMALS: no calf tenderness and no pedal edema Neuro: COMMON NORMALS: CN's II-XII intact bilaterally and moves all extremities SENSORIUM/ORIENTATION: Yes oriented to person, Yes oriented to place and No oriented to time Skin: OTHER: Urinary Catheter Management: Latex Free: Cath Placed During This Visit: yes Reason for Continuing Indwelling Catheter: Other Urinary Catheter Date of Insertion: 06/21/24 Urinary Catheter Time of Insertion: 02:30 Data 06/23/24 08:24 06/23/24 08:24 Micro: Microbiology 06/21/24 00:55 Blood Culture - Preliminary Blood Staphylococcus epidermidis 06/22/24 13:09 Blood Culture - Preliminary Blood SPECIMEN COLLECTED 06/22/24 13:09 Blood Culture - Preliminary Blood SPECIMEN COLLECTED A&P Assessment and plan (1) Acute encephalopathy: (2) ANITRA (acute kidney injury): (3) Uremia: (4) Leukocytosis: (5) Decubitus skin ulcer: (6) 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 Patient does have ANITRA with uremia. Also takes multiple pain medications including morphine 50 mg twice daily, hydrocodone 5 mg every 6 hours as needed, hydromorphone every 6 hours as needed. States gets these medications from her PCP. Has been on these medications for over 30 years as per family members. Does give history of pain medication overdose in the past. For now has been getting her medications weekly by her . Frequent reorientation. Sitter if needed. CT head negative for concern for stroke. Patient does have recent history of HSV keratitis. Denies any neck pain, nausea, vomiting without neck stiffness. If does not improve mentation within next 24 hours we will consider lumbar puncture. Aspiration precaution. Patient on multiple pain medication as an outpatient. For now we will continue to hold off other than hydrocodone 5 mg every 6 hours as needed. Change gabapentin 200 mg 3 times daily from 800 mg 3 times daily. Sepsis: SIRS: Tachycardic, Febrile, Leukocytosis Source: Decub ulcer, cellulitis, possible meningitis End organ damage: Acute infectious encephalopathy, ANITRA Lactic acid elevated. Resolved now. Patient did not receive full 30 mL/kg BW given concerns for renal failure. Monitor blood pressures. Keep mean artery pressure 65 mmHg. Follow-up blood culture, MRSA swab, trend procalcitonin. Check urine bacterial antigen. UA negative for concerns for UTI. For now continue with broad-spectrum antibiotics with IV cefepime, vancomycin as per creatinine clearance. Decub ulcer: Bilateral thigh decub ulcer with concerns of mild cellulitis. Dressing with Hydrofera Blue. Antibiotic as above. Frequent repositioning. HSV keratitis: Continue with oral valacyclovir 1 g twice daily. Dose as per creatinine clearance. Patient will need to follow-up with ophthalmology as an outpatient. Continue with outpatient antibiotic drops as before. ANITRA: Baseline creatinine recently 1.1. On admission 2.7 with uremia. Also had hyperkalemia. Creatinine coming down to 1.5. BUN improving. Hyperkalemia resolved. Continue to monitor BMP every 12 hours. Repeat in afternoon. Medical insufficient done for nephrotoxic drugs. Strict input charting. Sloan catheter. Hold off on home dose of lisinopril. NS @ 75 cc/hr Hypertension: Goal blood pressure less than 140/90 mmHg. Hold off on home dose of amlodipine and lisinopril for now. Will restart as per goal blood pressures. Type 2 diabetes mellitus: A1c of 5.8. Recently 6.4. Insulin sliding scale low- dose protocol with ACHS. Continue other chronic medications including Prozac. Cardiac diet Heparin 5000 every 12 hourly for DVT prophylaxis Protonix for PUD prophylaxis Full code Plan for the day: 1 out of 4 blood cultures positive for Staph epidermidis on admission. Could be a contaminant but given how sick she was on admission, cellulitis or decubitus ulcer for now will consider them positive. Repeat blood culture from 06/22 negative. MRSA swab negative. Discontinue vancomycin. Continue with cefepime as per creatinine clearance. Renal functions normal today. Patient able to take orally. Stop IV fluids. Goal blood pressure less than 140/90 mmHg. Continue with amlodipine for now. Hold off on adding lisinopril. Continue with current medications for now. Continue with current oral pain medications. Morphine 15 mg twice daily along with [place] every 6 hours as needed. Holding off on Dilaudid for now. DC Sloan catheter. 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
[2024-06-23 12:09] VITALS: BP 110/69; PULSE 88; TEMP 36.6; O2SAT 96
--- NOTE | 2024-06-23 12:10 | PC.SOCIAL ---
IMM updated IMM dated and initialed, copy given to patient and copy placed in chart.
[2024-06-23 15:27] VITALS: BP 121/72; PULSE 88; RESP 18; TEMP 36.4; O2SAT 97
[2024-06-23 16:34] LABS: Glucose Point of Care 122 mg/dL (70-110)
[2024-06-23 20:00] VITALS: BP 112/67; PULSE 83; RESP 16; TEMP 37; O2SAT 97
[2024-06-23 20:45] LABS: Glucose Point of Care 149 mg/dL (70-110)
[2024-06-24] VITALS (8 sets, daily range): BP systolic 110–119; BP diastolic 71–83; PULSE 83–93; RESP 17–18; TEMP 36.5–37; O2SAT 96–98
[2024-06-24] MEDS: cefepime 1,000 mg SDV 1000 MG IVP (00:03)
[2024-06-24] MEDS: heparin 5,000 unit/mL INJ 1 mL 5000 UNIT SUBCUT (04:48)
[2024-06-24 05:19] LABS: Basophils % 0.2 %; Eosinophils # 0.3 10^3/uL (0.0-0.8); Eosinophils % 2.2 %; Hematocrit 30.6 % (36-47); Lymphocytes # 5.9 10^3/uL (0.8-4.8); Lymphocytes % 49.1 %; Mean Corpuscular HGB Conc 31.7 g/dL (30-55); Mean Corpuscular Hemoglobin 31.4 pg (27-33); Mean Platelet Volume 10.5 fL (7.4-10.4); Monocytes # 0.9 10^3/uL (0.2-0.9); Monocytes % 7.8 %; Neutrophils # 4.82 10^3/uL (1.8-7.7); Neutrophils % 39.8 %; Nucleated Red Blood Cells % 0.2 %; Platelet Count 280 10^3/cmm (157-399); Red Blood Count 3.09 10^6/uL (3.85-5.65); Red Cell Distribution Width 18.3 % (12.1-15.1)
[2024-06-24 05:52] LABS: Alanine Aminotransferase 14 U/L (0-33); Albumin Level 2.2 g/dL (3.5-5.2); Alkaline Phosphatase 165 U/L (35-105); Anion Gap 13.4 (5-19); Aspartate Amino Transferase 29 U/L (0-32); Blood Urea Nitrogen 16 mg/dL (8-23); Calcium 8.2 mg/dL (8.5-10.5); Carbon Dioxide 21 mmol/L (22-29); Chloride 103 mmol/L (98-107); Creatinine Clr Calc Pharmacy 69.3304; Glucose 102 mg/dL (65-115); Osmolality Calculated 277 mOsm/kg (285-295); Potassium 4.4 mmol/L (3.5-5.1); Sodium 133 mmol/L (136-145); Total Bilirubin 0.4 mg/dL (0.15-1.2); Total Protein 5.2 g/dL (6.6-8.7)
[2024-06-24 06:13] LABS: Slide Review Slide Review Perform
[2024-06-24 06:21] LABS: Glucose Point of Care 112 mg/dL (70-110)
[2024-06-24 06:21] LABS: Magnesium 1.6 mg/dL (1.7-2.3)
[2024-06-24] MEDS: amlodipine 10 mg Tablet PO (09:15)
[2024-06-24] MEDS: fluoxetine 20 mg Capsule PO (09:16)
[2024-06-24] MEDS: gabapentin 100 mg Capsule 200 MG PO (09:17)
[2024-06-24] MEDS: morphine ER (12 HR) 15 mg Tablet PO (09:17)
[2024-06-24] MEDS: valACYclovir 1,000 mg Tablet 1000 MG PO (09:17)
[2024-06-24] MEDS: polymyxin-trimethoprim Op Soln 10 mL Btl 1 DROP EYE-BOTH ×2 (09:18→14:55)
[2024-06-24 10:41] LABS: Glucose Point of Care 148 mg/dL (70-110)
--- NOTE | 2024-06-24 11:05 | P.DS_ITS ---
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: Status: Acute (7) Acidosis, lactic: Status: Acute (8) Acute hyperkalemia: Status: Acute (9) Rhabdomyolysis: Status: Acute (10) Pulmonary embolism: Status: Chronic (11) Pain medication contract needed: Status: Acute Reason for Visit 2 Reason for Visit: confusion severely weak legs especially Brief History: History as per HPI: Aiyana Sorto is a 69 year old female with a past medical history of chronic pain on multiple opiate medications including hydrocodone, morphine, Dilaudid, history of cataracts, type 2 diabetes, depression, who presents [facility] due to bilateral extremity weakness, fatigue, malaise, altered mental status. Currently patient is alert to person, to place, not to time she can answer questions she can follow commands but her response times are delayed and she frequently becomes confused. She has no specific complaints, no chest pain, shortness of breath, abdominal pain, diarrhea, no headache, blurry vision, no neck pain she does have chronic back pain. According to patient's , they went up to [place] for her eye appointment, she was recently diagnosed with shingles across her buttocks, is on valacyclovir no recent falls, no recent injuries, no history of kidney failure she has had poor appetite. Hospital Course Hospital Course Patient was moved to the hospital further evaluation and management of altered mental status, acute kidney injury, uremia with concerns of possible sepsis. There was concern for cellulitis and decubitus ulcer on the thigh which was present on admission. She was started on broad-spectrum IV antibiotics, IV hydration. Her pain medications on admission were withheld. Gradually with IV fluids her ANITRA resolved. Her mentation has been back to baseline for the next 48 hours. At home patient takes 3 narcotic pain medications including morphine 15 mg twice daily, Dearing every 6 hours as needed, Dilaudid every 6 hours as needed. She has been on morphine 15 mg twice daily along with home dose of Dearing as needed. Patient has done fine without any episodes of confusion, pain medication withdrawal while being off Dilaudid. Her blood cultures from admission 1 bottle out of 4 was positive for Staph epidermidis. Repeat blood cultures so far have remained negative. Positive culture is most likely contaminant. Given concerns for significant cellulitis with decubitus ulcer, patient being significantly sick on admission decision was made to treat patient with oral linezolid for overall 14 more days on discharge. Safe discharge plan were discussed in detail with patient, her and daughter at bedside. Multiple options including home with home health versus SNF were discussed in detail. Patient adamantly refused SNF placement even though patient stated it is difficult for him to take care of her at home. Eventually was agreeable for patient to be discharged back home with home health. She has been discharged in hemodynamically stable condition on adjusted antihypertensive, linezolid for 14 more days, continuing home dose of Coreg and morphine while holding off. She is to continue taking valacyclovir 1 g twice daily for 7 more days. 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 Physical Exam 2 Const: COMMON NORMALS: no acute distress ORIENTATION/CONSCIOUSNESS: Yes awake, Yes oriented to person and Yes oriented to place; not oriented to time Neck/C-Spine: COMMON NORMALS: no JVD Resp: COMMON NORMALS: normal respiratory effort, No retractions, No use of accessory muscles and clear to auscultation bilaterally AUSCULTATION: clear to auscultation bilaterally Cardio: COMMON NORMALS: no JVD, regular rate, regular rhythm, S1 normal heart sound present and S2 normal heart sound present RATE: regular rate RHYTHM: regular rhythm HEART SOUNDS: S1 normal heart sound present and S2 normal heart sound present GI: COMMON NORMALS: Normal to inspection, nondistended, normoactive bowel sounds present, Soft to palpation and non-tender PALPATION: Yes Soft to palpation Extremity: COMMON NORMALS: no calf tenderness and no pedal edema Neuro: COMMON NORMALS: CN's II-XII intact bilaterally and moves all extremities SENSORIUM/ORIENTATION: Yes oriented to person, Yes oriented to place and No oriented to time Skin: OTHER: Urinary Catheter Management: Latex Free: Cath Placed During This Visit: yes Reason for Continuing Indwelling Catheter: Other Urinary Catheter Date of Insertion: 06/21/24 Urinary Catheter Time of Insertion: 02:30 Discharge Data Studies Completed and Pending Completed Studies During Hospitalization Category Date Time Status CT chest abdomen pelvis [CT chest abdpel w/*[id number] Cat Scan 06/20/24 23:40 Completed ] Stat CT head wo con* [id number] Stat Cat Scan 06/20/24 22:54 Completed XR chest 1V portable [id number] Stat Exams 06/20/24 22:54 Completed Pending at discharge Category Date Time Status Blood Culture Stat Lab 06/21/24 00:57 Results Blood Culture Stat Lab 06/22/24 13:09 Results Sputum Culture and Gram Stain Stat Lab 06/21/24 04:58 Ordered Vancomycin Trough Timed Lab 06/25/24 09:00 Ordered Radiology Impressions Chest X-Ray 06/20/24 22:54 IMPRESSION: No consolidation. Head CT 06/20/24 22:54 IMPRESSION: 1. Chronic sinus disease. 2. No acute intracranial finding. Chest/Abdomen/Pelvis CT 06/20/24 23:40 IMPRESSION: 1. No acute findings. 2. Dilated main pulmonary artery, can be seen with pulmonary hypertension. 3. Small hiatal hernia. IMPRESSION: 1. No acute findings in the abdomen/pelvis. 2. Chronic appearing L1 compression deformity with approximately 50% height loss and mild osseous retropulsion resulting in probable moderate spinal canal narrowing, new from 04/10/2023 lumbar spine radiographs. 3. Hepatic steatosis. 4. Small hiatal hernia. Laboratory Results WBC 12.10 10^3/uL (3.29-11.43) H 06/24/24 04:45 RBC 3.09 10^6/uL (3.85-5.65) L 06/24/24 04:45 Hgb 9.70 g/dL (11.27-16.99) L 06/24/24 04:45 Hct 30.6 % (36-47) L 06/24/24 04:45 MCV 99.0 fl (85-98) H D 06/24/24 04:45 MCH 31.4 pg (27-33) 06/24/24 04:45 MCHC 31.7 g/dL (30-55) D 06/24/24 04:45 RDW 18.3 % (12.1-15.1) H 06/24/24 04:45 Plt Count 280 10^3/cmm (157-399) 06/24/24 04:45 MPV 10.5 fL (7.4-10.4) H 06/24/24 04:45 Neut % (Auto) 39.8 % 06/24/24 04:45 Lymph % (Auto) 49.1 % 06/24/24 04:45 Phelps % (Auto) 7.8 % 06/24/24 04:45 Eos % (Auto) 2.2 % 06/24/24 04:45 Baso % (Auto) 0.2 % 06/24/24 04:45 Neut # (Auto) 4.82 10^3/uL (1.8-7.7) 06/24/24 04:45 Lymph # (Auto) 5.9 10^3/uL (0.8-4.8) H 06/24/24 04:45 Phelps # (Auto) 0.9 10^3/uL (0.2-0.9) 06/24/24 04:45 Eos # (Auto) 0.3 10^3/uL (0.0-0.8) 06/24/24 04:45 Baso # (Auto) 0.0 10^3/uL (0.0-0.1) 06/24/24 04:45 Nucleated RBC % (auto) 0.2 % 06/24/24 04:45 Nucleated RBCs # 0.0 /100WBC 06/24/24 04:45 ESR 42 mm/hr (0-15) H 06/20/24 23:14 Sodium 133 mmol/L (136-145) L 06/24/24 04:45 Potassium 4.4 mmol/L (3.5-5.1) 06/24/24 04:45 Chloride 103 mmol/L (98-107) 06/24/24 04:45 Carbon Dioxide 21 mmol/L (22-29) L 06/24/24 04:45 Anion Gap 13.4 (5-19) 06/24/24 04:45 BUN 16 mg/dL (8-23) 06/24/24 04:45 Creatinine 0.7 mg/dL (0.5-0.9) 06/24/24 04:45 GFR Calculation Not Reportable 06/24/24 04:45 Glucose 102 mg/dL (65-115) 06/24/24 04:45 POC Glucose 148 mg/dL (70-110) H 06/24/24 10:29 Estimat Average Glucose 120 06/20/24 23:14 Hemoglobin A1c 5.8 % (4.0-6.0) 06/20/24 23:14 Calculated Osmolality 277 mOsm/kg (285-295) L 06/24/24 04:45 Lactic Acid 4.1 mmol/L (0.5-2.2) H* 06/20/24 23:14 Lactic Acid (Sepsis) 1.9 mmol/L (0.5-2.2) 06/21/24 00:55 Calcium 8.2 mg/dL (8.5-10.5) L 06/24/24 04:45 Magnesium 1.6 mg/dL (1.7-2.3) L 06/24/24 04:45 Total Bilirubin 0.4 mg/dL (0.15-1.2) 06/24/24 04:45 AST 29 U/L (0-32) 06/24/24 04:45 ALT 14 U/L (0-33) 06/24/24 04:45 Alkaline Phosphatase 165 U/L (35-105) H 06/24/24 04:45 Creatine Kinase 530 U/L (26-192) H* 06/21/24 08:07 Troponin T Baseline 25 ng/L (0-10) H 06/20/24 23:14 Troponin T 120 Minute 22.49 ng/L (0-10) H 06/21/24 00:55 Delta Troponin T -2.51 ABS# (0-10) L 06/21/24 00:55 Troponin T Hi Sens 6Hr 20.74 ng/L (0-10) H 06/21/24 08:07 Troponin T Hi Sens 6Hr Delta -4.26 ng/L (0-12) L 06/21/24 08:07 C-Reactive Protein 39.9 mg/L (0.0-4.9) H 06/21/24 08:07 NT-Pro-B Natriuret Pep 634 pg/mL (0-125) H 06/20/24 23:14 Total Protein 5.2 g/dL (6.6-8.7) L 06/24/24 04:45 Albumin 2.2 g/dL (3.5-5.2) L 06/24/24 04:45 Globulin 3.0 g/dL (1.3-4.6) 06/24/24 04:45 Triglycerides 85 mg/dL (0-150) 06/21/24 08:07 Cholesterol 114 mg/dL (0-200) 06/21/24 08:07 LDL Cholesterol, Calc 39 mg/dL (50-129) L 06/21/24 08:07 HDL Cholesterol 58 mg/dL (60-100) L 06/21/24 08:07 LDL/HDL Ratio 0.67 RATIO (0.00-3.22) 06/21/24 08:07 Cholesterol/HDL Ratio 1.97 mg/dL (0.0-4.40) 06/21/24 08:07 Vitamin B12 539 pg/mL (232-1245) 06/21/24 08:07 Procalcitonin 0.22 ng/mL (0-0.5) 06/21/24 08:07 TSH 1.32 uIU/mL (0.27-4.20) 06/21/24 08:07 Urine Color Yellow (Yellow) 06/21/24 02:30 Urine Appearance Clear (CLEAR) 06/21/24 02:30 Urine pH 5.0 (5-7) 06/21/24 02:30 Ur Specific [place] 1.033 (1.005-1.030) H 06/21/24 02:30 Urine Protein Negative (Negative) 06/21/24 02:30 Urine Glucose (UA) Negative (Normal) 06/21/24 02:30 Urine Ketones Negative (Negative) 06/21/24 02:30 Urine Blood Negative (Negative) 06/21/24 02:30 Urine Nitrate Negative (Negative) 06/21/24 02:30 Urine Bilirubin Negative (Negative) 06/21/24 02:30 Urine Urobilinogen 1.0 mg/dL (Negative) 06/21/24 02:30 Ur Leukocyte Esterase Negative (Negative) 06/21/24 02:30 Urine RBC 0-2 /hpf (0-2) 06/21/24 02:30 Urine WBC 0-5 /hpf (0-5) 06/21/24 02:30 Ur Squamous Epith Cells 0-5 /hpf (0-5) 06/21/24 02:30 Amorphous Sediment Not Reportable 06/21/24 02:30 Urine Bacteria None seen /hpf (NONE) 06/21/24 02:30 Hyaline Casts 11.16 /lpf 06/21/24 02:30 Nasal MRSA (PCR) Not detected (Not Detecte) 06/21/24 05:35 Vancomycin Trough 10.8 ug/mL (10-15) 06/22/24 01:11 Urine Opiates Screen Positive ng/mL (Negative) H 06/21/24 02:30 Ur Barbiturates Screen Negative ng/mL (Negative) 06/21/24 02:30 Ur Phencyclidine Scrn Negative ng/mL (Negative) 06/21/24 02:30 Ur Amphetamines Screen Negative ng/mL (Negative) 06/21/24 02:30 U Benzodiazepines Scrn Negative ng/mL (Negative) 06/21/24 02:30 Urine Cocaine Screen Negative ng/mL (Negative) 06/21/24 02:30 U Marijuana (THC) Screen Negative ng/mL (Negative) 06/21/24 02:30 Coronavirus (PCR) Negative (Negative) 06/21/24 00:15 Influenza A (PCR) Negative (Negative) 06/21/24 00:15 Influenza Type B (PCR) Negative (Negative) 06/21/24 00:15 RSV (PCR) Negative (Negative) 06/21/24 00:15 Vitals Last Vital Signs Temp 98.1 F 06/24/24 08:00 Pulse 87 06/24/24 08:00 Resp 17 06/24/24 08:00 BP 119/83 06/24/24 08:00 Pulse Ox 96 06/24/24 07:46 O2 Del Method Room Air 06/24/24 07:46 Discharge Plan Discharge Patient Disposition: Home Condition: Stable Prescriptions: New valacyclovir 1 gram Tablet 1,000 mg PO BID 7 Days Qty: 14 0RF linezolid 600 mg tablet 600 mg PO BID 14 Days Qty: 28 0RF Continued fluoxetine 20 mg capsule 20 mg PO DAILY morphine 15 mg tablet extended release 15 mg PO BID hydrocodone-acetaminophen 7.5-325 mg tablet 1 tab PO Q6H PRN (Reason: Pain) amlodipine 10 mg Tablet 10 mg PO DAILY Qty: 30 0RF meclizine 12.5 mg tablet 12.5 mg PO DAILY PRN (Reason: dizziness) Qty: 30 0RF hydrocodone-acetaminophen 5-325 mg tablet 1 tab PO Q6H PRN (Reason: Pain) polymyxin B sulf-trimethoprim 10,000 unit- 1 mg/mL drops 1 drp ophthalmic (eye) QID moxifloxacin 0.5 % drops 1 drp ophthalmic (eye) QID cholecalciferol (vitamin D3) [Vitamin D3] 50 mcg (2,000 unit) Tablet 50 mcg PO DAILY Advanced Probiotic 625 mg (10 billion cell) Capsule 1 cap PO DAILY cetirizine [Zyrtec] 10 mg Tablet 10 mg PO DAILY Changed gabapentin 800 mg Tablet 400 mg PO QID Qty: 30 0RF Discontinued acyclovir 400 mg tablet 400 mg PO BID hydromorphone 2 mg tablet 2 mg PO Q6H PRN (Reason: Pain) lisinopril 5 mg tablet 10 mg PO QAM Discharge Orders: Discharge Order (Routine); Ordered 06/24/24 Ordered By: Miguel Moreno Referrals: Mango Ortiz MD [Primary Care Provider] - 07/01/24 9:00 am [facility], [Staff Physician] - 06/29/24 1:00 pm Discharge Diet: Cardiac Discharge Activity: Resume usual activity and Increase activity as tolerated Patient Instructions: Valacyclovir (By mouth), Linezolid (By mouth), Shingles (DC), Rhabdomyolysis (GEN), Opioid Safety Activity Restrictions/Additional Instructions: Please do not take Dilaudid anymore. Your home dose of lisinopril has been discontinued. Please try to increase your physical activity as much as possible. Follow-up with wound care as an outpatient. Linezolid is the antibiotic which you will take twice daily for next 14 days. Follow-up with your primary care provider on set appointment within next 1 week. Discharge Attestations 2 Time Spent in Discharge Care*: greater than 30 min Specific Discharge Activities: educating patient, discussing with pcp/other providers, discussing with correctional casework specialist/social workers/dc planners, documenting/other paperwork and evaluating patient/reviewing data Status at Discharge: Cognitive status at discharge: cognitively intact , B ehavioral status at discharge: cooperative , Functional status at discharge: o ther assisted ambulation , Overall status at discharge: patient is back to baseline Quality Metrics Clinical Quality Measures [ No reported AMI, CVA or VTE this stay] Coding Level of Care Code 31017 Total time (in minutes) for Discharge: 60 Diagnoses Acute encephalopathy G93.40 ANITRA (acute kidney injury) N17.9 Uremia N19 Leukocytosis D72.829 Decubitus skin ulcer L89.90 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
--- NOTE | 2024-06-24 13:03 | PC.NURSE ---
Attempted to get patient out of bed with ROSARIO Schuster. Patient states at home she transfers from the bed to the bedside commode and wheelchair with the help of her . Patient was assist x2 to get to the edge of the bed and in standing position. She then transferred to the chair with the use of a walker and stand by assist. Patient then sat on the edge of the chair and stated I can't sit in this chair with my wounds she proceeded to stand back up with the use of her walker and transfer back to the bed. Once patient sat on the bed, she immediately laid back and this nurse with ROSARIO had to reposition her appropriately in the bed. She was laid on her left side and positioned to her comfort. This nurse told patient we had orders to remove her garcia catheter per Dr. Moreno. Pt verbalized understanding and stated she wasn't staying here another 24 hours and that she was going home and my can take care of me Dr. Moreno notified
== END 2024-06-24 16:07 | disposition home health service (06) | DRG 871 ==
LOC: ER 06-21 03:56 → ICU 06-21 05:00 → MEDSURG 06-22 16:20
PROVIDERS: Nurse Practitioner; Admitting Provider Family Medicine; Emergency Provider Emergency Medicine; PCP Family Medicine; Visit Provider Student in an Organized Health Care Education/Training Program
DX: A41.9 Sepsis, unspecified organism (principal); G92.8 Other toxic encephalopathy; I26.99 Other pulmonary embolism without acute cor pulmonale; B02.33 Zoster keratitis; N17.9 Acute kidney failure, unspecified; L03.116 Cellulitis of left lower limb; L03.115 Cellulitis of right lower limb; E87.20 Acidosis, unspecified; M62.82 Rhabdomyolysis; L89.899 Pressure ulcer of other site, unspecified stage; E87.5 Hyperkalemia; G89.29 Other chronic pain; M54.50 Low back pain, unspecified; F32.A Depression, unspecified; E11.9 Type 2 diabetes mellitus without complications; Z79.891 Long term (current) use of opiate analgesic
CPT/HCPCS: 0241U; 36415; 36416; 51702; 70450; 71045; 71260; 74177; 80053; 80061; 80202; 80306; 81001; 82550; 82607; 82962; 83036; 83605; 83735; 83880; 84145; 84443; 84484; 85025; 85651; 86140; 87040; 87077; 87150; 87186; 87205; 93005; 94640; 94664; 96365; 96372; 96375; 99285; 99291; 99292; J0612; J0692; J1644; J1815; J3370; J7030; J7040; J7613; J8499

== ENCOUNTER 2024-07-28 13:56 | Inpatient (IN) | payer MEDICARE, SELFPAY ==
[2024-07-28] VITALS (8 sets, daily range): BP systolic 104–150; BP diastolic 56–82; PULSE 84–118; RESP 16–18; TEMP 36.7; O2SAT 94–98
[2024-07-28 14:13] LABS: Glucose Point of Care 112 mg/dL (70-110)
--- NOTE | 2024-07-28 14:14 | XR_ITS ---
WS: [id number] Exam: XR chest 1V portable [id number] Date/Time of Exam: 07/28/2024 2:16 PM Reason For Exam: ams Comparison 06/20/2024. Lungs are fully expanded and clear. Heart size within normal limits. Rotation of the chest. No pleura l effusion. The mediastinum is normal in contour. LEFT reverse shoulder prosthesis. XR/XR chest 1V portable [id number] IMPRESSION: 1. No acute cardiopulmonary finding.
--- NOTE | 2024-07-28 14:14 | CT_ITS ---
WS: [id number] CT HEAD TECHNIQUE: Noncontrast CT of the head obtained from the skullbase to the vertex. CLINICAL INFORMATION: ams COMPARISON: 06/20/2024 DLP: 992.[address] scans at [facility] use at least one of these dose optimization techniques: automated e xposure control; mA and/or kV adjustment per patient size (includes targeted exams where dose is matc hed to clinical indication); or iterative reconstruction. FINDINGS: No evidence of intracranial hemorrhage or mass effect. Ventricular system and basal cisterns are blair nt. Mild small vessel changes with moderate parenchymal volume loss. No extra-axial fluid collections . No evidence of mass or mass effect. Vascular calcification. LEFT maxillary sinusitis. Inspissated secretions in the LEFT maxillary sinus partially visualized. Sp henoid sinusitis. Small amount of fluid in the ethmoid air cells. Mastoid air cells are well aerated. CT/CT head wo con* [id number] IMPRESSION: 1. No evidence of intracranial hemorrhage or mass effect. 2. LEFT maxillary sinusitis. This was present previously. 3. Mild small vessel changes with moderate parenchymal volume loss. Notified Kiran Desai MD at 07/28/2024 3:20 PM.
--- NOTE | 2024-07-28 14:22 | ECG_ITS ---
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 Measurements Intervals [place] Rate: 96 P: 47 MT: 128 QRS: 26 QRSD: 82 T: 37 QT: 335 QTc: 424 Interpretive Statements SINUS RHYTHM WITH SINUS ARRHYTHMIA LOW QRS VOLTAGE IN PRECORDIAL LEADS [QRS DEFLECTION < 1.0 mV IN CHEST LEADS] Compared to ECG 06/21/2024 06:20:39 Low QRS voltage now present Short MT interval no longer present Electronically Signed On 07-29-2024 11:15:30 CARPET JACK by Adan Aparicio M.D. [email or web address]
--- NOTE | 2024-07-28 14:22 | ED_ITS ---
HPI - Headache 2 General: Chief Complaint: Headache Stated Complaint: headache/ hallucinations Time Seen by Provider: 07/28/24 14:11 Source: patient Mode of arrival: ambulatory Limitations: no limitations History of Present Illness: 69-year-old female who states that she b een having increased weakness and fatigue over the last 4 to 5 days states she also has slight cough feels like she may have the flu. She had generalized bodyaches and a headache. Has been concerned that she may have a UTI she states she asked like this when she had a UTI in the past he stated he felt like she had some slurred speech and hallucinations she denies that she is answer all my questions appropriately is ANO x 4 she been afebrile denies any vomiting or diarrhea Associated symptoms: Reports malaise; Deny chest pain, fever(s), nausea, rash or vomiting Related Data Home Medications Medication Instructions Recorded Confirmed morphine 15 mg tablet,extended 15 mg PO BID 01/21/20 07/28/24 release fluoxetine 20 mg capsule 20 mg PO DAILY 04/29/23 07/28/24 cetirizine 10 mg tablet (Zyrtec) 10 mg PO DAILY 05/15/23 07/28/24 hydrocodone 7.5 mg-acetaminophen 1 tab PO Q6H PRN break through pain 01/20/24 07/28/24 325 mg tablet L.acidop,casei,lactis,rham-B.lact,ginna 1 cap PO DAILY 06/21/24 07/28/24 625 mg (10 billion cell) capsule (Advanced Probiotic) cholecalciferol (vitamin D3) 50 50 mcg PO DAILY 06/21/24 07/28/24 mcg (2,000 unit) tablet (Vitamin D3) hydrocodone 5 mg-acetaminophen 325 1 tab PO Q6H PRN Pain 06/21/24 07/28/24 mg tablet moxifloxacin 0.5 % eye drops 1 drp ophthalmic (eye) QID 06/21/24 07/28/24 polymyxin B sulfate 10,000 1 drp ophthalmic (eye) QID 06/21/24 07/28/24 unit-trimethoprim 1 mg/mL eye drops diphenoxylate-atropine 2.5 1 - 2 tab PO QID PRN Diarrhea 07/28/24 07/28/24 mg-0.025 mg tablet valacyclovir 1 gram tablet 1 mg PO TID 07/28/24 07/28/24 Previous Rx's Medication Instructions Recorded meclizine 12.5 mg tablet 12.5 mg PO DAILY PRN dizziness #30 01/21/24 tabs gabapentin 800 mg tablet 400 mg (1/2 x 800 mg) PO QID #30 06/24/24 tabs Allergies Allergy/AdvReac Type Severity Reaction Status Date / Time adhesive tape Allergy Unknown ALGY-Bliste Verified 07/28/24 14:08 r atorvastatin Allergy Unknown ADV-Weaknes Verified 07/28/24 14:08 s erythromycin base Allergy Unknown ALGY-Rash Verified 07/28/24 14:08 formaldehyde Allergy Unknown ALGY-Anaphy Verified 07/28/24 14:08 laxis,Anaph ylaxis Januvia Allergy Unknown ADR-Diarrhe Unverified 06/28/24 16:24 a ketorolac Allergy Unknown ALGY-Rash Verified 07/28/24 14:08 latex Allergy Unknown ADR-Irritab Verified 07/28/24 14:08 le Levaquin Allergy Unknown ADR-Muscle Unverified 06/28/24 16:24 Pain levofloxacin Allergy Unknown ADR-Muscle Verified 07/28/24 14:08 Pain,Unknown meperidine Allergy Unknown ALGY-Rash,n Verified 07/28/24 14:08 ausea metoprolol [From Toprol XL] Allergy Unknown Unknown Verified 07/28/24 14:08 NSAIDS (Non-Steroidal Allergy Unknown ADR-Abdominal Verified 07/28/24 14:08 Anti-Inflamma Pain [NSAIDS (Non-Steroidal Anti-Inflammatory Drug)] oxybutynin Allergy Unknown ADR-Faintin Verified 07/28/24 14:08 g Penicillins Allergy Unknown ALGY-Rash Verified 07/28/24 14:08 pregabalin Allergy Unknown ADV-Weaknes Verified 07/28/24 14:08 s sitagliptin Allergy Unknown ADR-Diarrhe Verified 07/28/24 14:08 a,ADV-Weakn ess Updsuln-HFW-LjN Reductase Allergy Unknown Unknown Verified 07/28/24 14:08 Inhibitor [Pwdmkrf-SGE-MnD Reductase Inhibitors] topiramate Allergy Unknown ADR-Diarrhe Verified 07/28/24 14:08 a Toprol XL Allergy Unknown Unknown Unverified 06/28/24 16:24 zinc Allergy Unknown ALGY-Bliste Verified 07/28/24 14:08 r Review of Systems 2 Const: Reports: fatigue and malaise; Denies: fever(s), chills, body aches or change in appetite Eyes: Denies: blurry vision or eye discomfort ENMT: Denies: throat pain or dental pain Card: Denies: chest pain Resp: Denies: dyspnea GI: Denies: abdominal pain, nausea, vomiting or diarrhea Musc: Denies: neck pain or back pain Skin/Breast: Denies: rash Neuro: Reports: headache(s) PFSH ED 2 PFSH: Medical History (Updated 07/28/24 @ 16:23 by Kiran Desai MD) Decubitus skin ulcer Cataracts, bilateral Sleep apnea Hypertension Diabetes mellitus, type II Osteoarthritis Chronic UTI (urinary tract infection) Fibromyalgia Depression Bipolar disorder Surgical History (Updated 06/25/24 @ 00:00 by SHANE Horne) History of gastric surgery History of cholecystectomy History of knee replacement History of orthopedic surgery Social History Smoking and tobacco/nicotine status: never used tobacco/nicotine Physical Exam 2 Const: COMMON NORMALS: no acute distress, patient oriented x3 and healthy appearing HENMT: COMMON NORMALS: normocephalic and atraumatic HEAD & SCALP: n ormocephalic and atraumatic Eye: COMMON NORMALS: Equal, round and reactive pupils present and EOMs intact bilaterally PUPIL: Yes Equal, round and reactive pupils present Neck/C-Spine: COMMON NORMALS: full ROM and supple Chest: COMMONS NORMALS: normal inspection of the chest and normal palpation of entire chest wall Resp: COMMON NORMALS: normal respiratory effort, No retractions, No use of accessory muscles and clear to auscultation bilaterally AUSCULTATION: clear to auscultation bilaterally Cardio: COMMON NORMALS: regular rate, regular rhythm and No murmurs present (Cardio) RATE: regular rate RHYTHM: regular rhythm GI: COMMON NORMALS: Normal to inspection, nondistended, normoactive bowel sounds present, Soft to palpation, non-tender and no masses PALPATION: Yes Soft to palpation Extremity: COMMON NORMALS: normal to inspection and full ROM Neuro: COMMON NORMALS: patient oriented x3, moves all extremities and no focal motor deficits Psych: COMMON NORMALS: mental status grossly normal, Normal thought process present and cooperative THOUGHT PROCESS: Normal thought process present Skin: COMMON NORMALS: no rashes or lesions noted and no wounds GENERAL SKIN EXAM: no rashes or lesions noted Course 2 Vital Signs: Vital signs: Vital Signs Temperature 98.1 F 07/28/24 14:03 Pulse Rate 94 07/28/24 15:53 Respiratory Rate 16 07/28/24 15:53 Blood Pressure 150/82 07/28/24 15:53 Pulse Oximetry 98 07/28/24 15:53 Oxygen Delivery Me thod Room Air 07/28/24 15:53 MDM - Headache Medical Decision Making Patient presents here with confusion from home CT here showed bilateral pneumonia she has had a cough at home no hypoxia here she has had increased weakness her weakness confusion likely from her pneumonia she is able to answer most my questions appropriately here we will start her on antibiotics spoke to hospitalist will admit at this time she also has a leukocytosis. Her blood pressures here been normal no signs of septic shock Medical Records I reviewed the patient's medical records. Lab Data I reviewed the patient's lab results. 07/28/24 14:23 07/28/24 14:23 Radiology Impressions Chest X-Ray 07/28/24 14:14 IMPRESSION: 1. No acute cardiopulmonary finding. Head CT 07/28/24 14:14 IMPRESSION: 1. No evidence of intracranial hemorrhage or mass effect. 2. LEFT maxillary sinusitis. This was present previously. 3. Mild small vessel changes with moderate parenchymal volume loss. Notified Kiran Desai MD at 07/28/2024 3:20 PM. Chest CTA 07/28/24 15:17 IMPRESSION: 1. No embolus. 2. Bilateral pulmonary infiltrates, right greater than left. \ 3. Moderately dilated pulmonary artery suggesting pulmonary arterial hypertension. COMMENTS: The presence of pulmonary emphysema on CT is an independent risk factor for lung cancer. In the absence of a history or active diagnosis of lung cancer, it is recommended that this patient with emphysema be evaluated for enrollment in a low dose CT lung cancer screening program. Laboratory Results WBC 20.75 10^3/uL (3.29-11.43) H 07/28/24 14:23 RBC 3.30 10^6/uL (3.85-5.65) L 07/28/24 14:23 Hgb 10.90 g/dL (11.27-16.99) L 07/28/24 14:23 Hct 33.5 % (36-47) L 07/28/24 14:23 MCV 101.5 fl (85-98) H 07/28/24 14:23 MCH 33.0 pg (27-33) 07/28/24 14:23 MCHC 32.5 g/dL (30-55) 07/28/24 14:23 RDW 19.8 % (12.1-15.1) H 07/28/24 14:23 Plt Count 377 10^3/cmm (157-399) 07/28/24 14:23 MPV 10.1 fL (7.4-10.4) 07/28/24 14:23 Neut % (Auto) 58.9 % 07/28/24 14:23 Lymph % (Auto) 35.2 % 07/28/24 14:23 Sullivan % (Auto) 5.4 % 07/28/24 14:23 Eos % (Auto) 0.0 % 07/28/24 14:23 Baso % (Auto) 0.2 % 07/28/24 14:23 Neut # (Auto) 12.20 10^3/uL (1.8-7.7) H 07/28/24 14:23 Lymph # (Auto) 7.3 10^3/uL (0.8-4.8) H 07/28/24 14:23 Sullivan # (Auto) 1.1 10^3/uL (0.2-0.9) H 07/28/24 14:23 Eos # (Auto) 0.0 10^3/uL (0.0-0.8) 07/28/24 14:23 Baso # (Auto) 0.0 10^3/uL (0.0-0.1) 07/28/24 14:23 Nucleated RBC % (auto) 0 % 07/28/24 14:23 Nucleated RBCs # 0.0 /100WBC 07/28/24 14:23 PT 14.10 SECONDS (12.1-14.9) 07/28/24 14:23 INR 1.02 (0.8-1.2) 07/28/24 14:23 Sodium 134 mmol/L (136-145) L 07/28/24 14:23 Potassium 3.5 mmol/L (3.5-5.1) 07/28/24 14:23 Chloride 98 mmol/L (98-107) 07/28/24 14:23 Carbon Dioxide 24 mmol/L (22-29) 07/28/24 14:23 Anion Gap 15.5 (5-19) 07/28/24 14:23 BUN 15 mg/dL (8-23) 07/28/24 14:23 Creatinine 0.7 mg/dL (0.5-0.9) 07/28/24 14:23 GFR Calculation Not Reportable 07/28/24 14:23 Glucose 105 mg/dL (65-115) 07/28/24 14:23 POC Glucose 112 mg/dL (70-110) H 07/28/24 14:10 Calculated Osmolality 279 mOsm/kg (285-295) L 07/28/24 14:23 Calcium 8.7 mg/dL (8.5-10.5) 07/28/24 14:23 Total Bilirubin 0.6 mg/dL (0.15-1.2) 07/28/24 14:23 AST 28 U/L (0-32) 07/28/24 14:23 ALT 15 U/L (0-33) 07/28/24 14:23 Alkaline Phosphatase 183 U/L (35-105) H 07/28/24 14:23 Ammonia 20 umol/L (11-51) 07/28/24 14:23 Total Protein 6.3 g/dL (6.6-8.7) L 07/28/24 14:23 Albumin 3.1 g/dL (3.5-5.2) L 07/28/24 14:23 Globulin 3.2 g/dL (1.3-4.6) 07/28/24 14:23 Urine Color Yellow (Yellow) 07/28/24 14:30 Urine Appearance Clear (CLEAR) 07/28/24 14:30 Urine pH 5.5 (5-7) 07/28/24 14:30 Ur Specific Rosamond 1.008 (1.005-1.030) 07/28/24 14:30 Urine Protein Negative (Negative) 07/28/24 14:30 Urine Glucose (UA) Negative (Normal) 07/28/24 14:30 Urine Ketones Negative (Negative) 07/28/24 14:30 Urine Blood Negative (Negative) 07/28/24 14:30 Urine Nitrate Negative (Negative) 07/28/24 14:30 Urine Bilirubin Negative (Negative) 07/28/24 14:30 Urine Urobilinogen 1.0 mg/dL (Negative) 07/28/24 14:30 Ur Leukocyte Esterase Negative (Negative) 07/28/24 14:30 Urine RBC 0-2 /hpf (0-2) 07/28/24 14:30 Urine WBC 0-5 /hpf (0-5) 07/28/24 14:30 Ur Squamous Epith Cells 0-5 /hpf (0-5) 07/28/24 14:30 Amorphous Sediment Not Reportable 07/28/24 14:30 Urine Bacteria None seen /hpf (NONE) 07/28/24 14:30 Hyaline Casts 1.65 /lpf 07/28/24 14:30 Coronavirus (PCR) Negative (Negative) 07/28/24 14:35 Influenza A (PCR) Negative (Negative) 07/28/24 14:35 Influenza Type B (PCR) Negative (Negative) 07/28/24 14:35 RSV (PCR) Negative (Negative) 07/28/24 14:35 All radiology interpretation(s) finalized by discharge EKG Data EKG 1: I personally reviewed and interpreted this EKG as follows: EKG interpretation date: 07/28/24 EKG interpretation time: 14:22 Interpretation: nsr hr [address] elevation qrs 82 qtc 388 Discharge Plan Discharge Patient Disposition: Admitted As Inpatient Clinical Impression: Pneumonia, Confusion Condition: Stable Prescriptions: No Action fluoxetine 20 mg capsule 20 mg PO DAILY morphine 15 mg tablet extended release 15 mg PO BID hydrocodone-acetaminophen 7.5-325 mg tablet 1 tab PO Q6H PRN (Reason: break through pain ) meclizine 12.5 mg tablet 12.5 mg PO DAILY PRN (Reason: dizziness) Qty: 30 0RF hydrocodone-acetaminophen 5-325 mg tablet 1 tab PO Q6H PRN (Reason: Pain) polymyxin B sulf-trimethoprim 10,000 unit- 1 mg/mL drops 1 drp ophthalmic (eye) QID moxifloxacin 0.5 % drops 1 drp ophthalmic (eye) QID cholecalciferol (vitamin D3) [Vitamin D3] 50 mcg (2,000 unit) Tablet 50 mcg PO DAILY Advanced Probiotic 625 mg (10 billion cell) Capsule 1 cap PO DAILY gabapentin 800 mg Tablet 400 mg PO QID Qty: 30 0RF valacyclovir 1 gram tablet 1 mg PO TID diphenoxylate-atropine 2.5-0.025 mg tablet 1 - 2 tab PO QID PRN (Reason: Diarrhea) cetirizine [Zyrtec] 10 mg Tablet 10 mg PO DAILY Referrals: Mango Ortiz MD [Primary Care Provider] - Patient Instructions: Opioid Safety, Pain Management Coding Level of Care Code ED Learning Support Services Director for Michelleg Nola NIH stroke score NIHSS Level Of Consciousness Questions - 1b: Both Correct Level Of Consciousness Commands - 1c: Both Correct Best Gaze - 2: Normal Visual Kamara - 3: No Visual Loss Facial Palsy - 4: Normal Motor Arm Right - 5: No Drift Motor Arm Left - 5: No Drift Motor Leg Right - 6: No Drift Motor Leg Left - 6: No Drift Limb Ataxia - 7: Absent Sensory - 8: Normal Best Language - 9: No Aphasia Dysarthia - 10: Normal Extinction And Inattention - 11: 0
[2024-07-28 14:35] LABS: Basophils % 0.2 %; Hematocrit 33.5 % (36-47); Lymphocytes # 7.3 10^3/uL (0.8-4.8); Lymphocytes % 35.2 %; Mean Corpuscular HGB Conc 32.5 g/dL (30-55); Mean Corpuscular Volume 101.5 fl (85-98); Mean Platelet Volume 10.1 fL (7.4-10.4); Monocytes # 1.1 10^3/uL (0.2-0.9); Monocytes % 5.4 %; Neutrophils % 58.9 %; Nucleated Red Blood Cells % 0 %; Platelet Count 377 10^3/cmm (157-399); Red Cell Distribution Width 19.8 % (12.1-15.1); White Blood Count 20.75 10^3/uL (3.29-11.43)
[2024-07-28] MEDS: sodium chloride 0.9% 1,000 ML 999 ML IV (14:38)
[2024-07-28 14:46] LABS: INR 1.02 (0.8-1.2)
[2024-07-28 14:51] LABS: Alanine Aminotransferase 15 U/L (0-33); Albumin Level 3.1 g/dL (3.5-5.2); Alkaline Phosphatase 183 U/L (35-105); Anion Gap 15.5 (5-19); Aspartate Amino Transferase 28 U/L (0-32); Blood Urea Nitrogen 15 mg/dL (8-23); Calcium 8.7 mg/dL (8.5-10.5); Carbon Dioxide 24 mmol/L (22-29); Chloride 98 mmol/L (98-107); Globulin 3.2 g/dL (1.3-4.6); Glucose 105 mg/dL (65-115); Osmolality Calculated 279 mOsm/kg (285-295); Potassium 3.5 mmol/L (3.5-5.1); Sodium 134 mmol/L (136-145); Total Bilirubin 0.6 mg/dL (0.15-1.2); Total Protein 6.3 g/dL (6.6-8.7)
[2024-07-28 14:57] LABS: Ammonia 20 umol/L (11-51)
[2024-07-28 15:03] LABS: Bilirubin Urine Negative (Negative); Blood Urine Negative (Negative); Glucose Urine UA Negative (Normal); Ketones Urine Negative (Negative); Leukocyte Esterase Urine Negative (Negative); Nitrate Urine Negative (Negative); Protein Urine Negative (Negative); Specific Gravity, Urine 1.008 (1.005-1.030); Urine Appearance Clear (CLEAR); Urine Color Yellow (Yellow); pH Urine 5.5 (5-7)
[2024-07-28 15:08] LABS: Slide Review Slide Review Perform
[2024-07-28 15:08] LABS: Add Urine Microscopic? YES; Bacteria Urine None Seen /hpf; Hyaline Casts Urine 1.65 /lpf; RBC Urine 0-2 /hpf (0-2); Squamous Epithelial Cell Urine 0-5 /hpf (0-5); WBC Urine 0-5 /hpf (0-5)
--- NOTE | 2024-07-28 15:17 | CTR_ITS ---
PROCEDURE INFORMATION: Exam: CTA Chest With Contrast Exam date and time: 07/28/2024 3:35 PM Age: 69 years old Clinical indication: Shortness of breath; Additional info: SOB TECHNIQUE: Imaging protocol: Computed tomographic angiography of the chest with contrast. Exam focused on the arteries. 3D rendering (Not supervised by radiologist): MIP and/or 3D reconstructed images were created by the technologist. Radiation optimization: All CT scans at this facility use at least one of these dose optimization techniques: automated exposure control; mA and/or kV adjustment per patient size (includes targeted exams where dose is matched to clinical indication); or iterative reconstruction. Contrast material: OMNIPAQUE 350; Contrast volume: 100 ml; Contrast route: INTRAVENOUS (IV); COMPARISON: CT chest abdpel w/*[id number] 06/20/2024 11:55 PM RADIATION DOSE METRICS: Total DLP (mGy-cm): 395.5 FINDINGS: Pulmonary arteries: 4 cm pulmonary artery suggesting pulmonary arterial hypertension. Aorta: Unremarkable. No aortic aneurysm. No aortic dissection. Trachea: Encephalomalacia with flattening of the intrathoracic trachea. Lungs: Emphysematous COPD. Scattered bilateral pulmonary infiltrates in the upper and lower lobes, right greater than left. A multifocal pneumonia is present. Pleural spaces: Unremarkable. No pneumothorax. No pleural effusion. Heart: Unremarkable. No cardiomegaly. No pericardial effusion. Lymph nodes: Mild central and right hilar adenopathy, nonspecific in size. Diaphragm: Small hiatal hernia with possible gastroesophageal reflux. Cholecystectomy. Stomach: Prior gastric surgery. Bones/joints: Unremarkable. No acute fracture. Soft tissues: Unremarkable. CT/CT angio chest PE protcl [id number] IMPRESSION: 1. No embolus. 2. Bilateral pulmonary infiltrates, right greater than left. \ 3. Moderately dilated pulmonary artery suggesting pulmonary arterial hypertension. COMMENTS: The presence of pulmonary emphysema on CT is an independent risk factor for lung cancer. In the absence of a history or active diagnosis of lung cancer, it is recommended that this patient with emphysema be evaluated for enrollment in a low dose CT lung cancer screening program.
[2024-07-28 15:31] LABS: Covid PCR NEGATIVE (Negative); Influenza A NEGATIVE (Negative); Influenza B NEGATIVE (Negative); Respiratory Syncytial Virus Ce NEGATIVE (Negative)
[2024-07-28] MEDS: iohexol 350 mg/mL 500 mL Btl (per mL) IV (15:39)
[2024-07-28 15:43] LABS: Add Urine Culture? No; UA Slide Review UA Slide Review Perf
[2024-07-28 16:23] LABS: Lactic Sepsis W/Reflex 2.1 mmol/L (0.5-2.2)
[2024-07-28] MEDS: cefTRIAXone 1,000 mg SDV 1000 MG IVP (16:40)
--- NOTE | 2024-07-28 16:46 | P.HP_ITS ---
Providers/Chief Complaint 2 Primary Care Provider: Mango Ortiz MD Chief Complaint: Stroke Like History of Present Illness Aiyana Sorto is a 69 year old female with a past medical history of chronic pain on multiple narcotics, history of decubitus ulcer history of HSV keratitis, type 2 diabetes mellitus, who presents [facility] for complaints of altered mental status, weakness. Currently patient is alert oriented x 3, following all commands, no nausea, no vomiting, headache, blurry vision, she has chronic neck pain, but no neck stiffness no worsening of her neck pain is at bedside he tells that today she has been confused, weak, not acting appropriately, she tells me that she had congestion in her chest for the last few days she thought she could manage at home however her symptoms persisted, does have a cough, chills, no fevers, nausea, vomiting, abdominal pain, no lightheadedness, no dizziness, no recent falls, no recent injuries Medications/Allergies Home Medications Medication Instructions Recorded Confirmed Last Taken Type morphine 15 mg tablet,extended 15 mg PO BID 01/21/20 07/28/24 07/28/24 History release fluoxetine 20 mg capsule 20 mg PO DAILY 04/29/23 07/28/24 07/28/24 History cetirizine 10 mg tablet (Zyrtec) 10 mg PO DAILY 05/15/23 07/28/24 07/28/24 History hydrocodone 7.5 mg-acetaminophen 1 tab PO Q6H PRN break through pain 01/20/24 07/28/24 01/20/24 History 325 mg tablet meclizine 12.5 mg tablet 12.5 mg PO DAILY PRN dizziness #30 01/21/24 07/28/24 Unknown Rx tabs L.acidop,casei,lactis,rham-B.lact,ginna 1 cap PO DAILY 06/21/24 07/28/24 06/20/24 History 625 mg (10 billion cell) capsule (Advanced Probiotic) cholecalciferol (vitamin D3) 50 50 mcg PO DAILY 06/21/24 07/28/24 07/28/24 History mcg (2,000 unit) tablet (Vitamin D3) hydrocodone 5 mg-acetaminophen 325 1 tab PO Q6H PRN Pain 06/21/24 07/28/24 07/28/24 History mg tablet moxifloxacin 0.5 % eye drops 1 drp ophthalmic (eye) QID 06/21/24 07/28/24 07/27/24 History polymyxin B sulfate 10,000 1 drp ophthalmic (eye) QID 06/21/24 07/28/24 06/20/24 History unit-trimethoprim 1 mg/mL eye drops gabapentin 800 mg tablet 400 mg (1/2 x 800 mg) PO QID #30 06/24/24 07/28/24 07/28/24 Rx tabs diphenoxylate-atropine 2.5 1 - 2 tab PO QID PRN Diarrhea 07/28/24 07/28/24 Unknown History mg-0.025 mg tablet valacyclovir 1 gram tablet 1 mg PO TID 07/28/24 07/28/24 07/28/24 History Allergies Allergy/AdvReac Type Severity Reaction Status Date / Time adhesive tape Allergy Unknown ALGY-Bliste Verified 07/28/24 14:08 r atorvastatin Allergy Unknown ADV-Weaknes Verified 07/28/24 14:08 s erythromycin base Allergy Unknown ALGY-Rash Verified 07/28/24 14:08 formaldehyde Allergy Unknown ALGY-Anaphy Verified 07/28/24 14:08 laxis,Anaph ylaxis Januvia Allergy Unknown ADR-Diarrhe Unverified 06/28/24 16:24 a ketorolac Allergy Unknown ALGY-Rash Verified 07/28/24 14:08 latex Allergy Unknown ADR-Irritab Verified 07/28/24 14:08 le Levaquin Allergy Unknown ADR-Muscle Unverified 06/28/24 16:24 Pain levofloxacin Allergy Unknown ADR-Muscle Verified 07/28/24 14:08 Pain,Unknown meperidine Allergy Unknown ALGY-Rash,n Verified 07/28/24 14:08 ausea metoprolol [From Toprol XL] Allergy Unknown Unknown Verified 07/28/24 14:08 NSAIDS (Non-Steroidal Allergy Unknown ADR-Abdominal Verified 07/28/24 14:08 Anti-Inflamma Pain [NSAIDS (Non-Steroidal Anti-Inflammatory Drug)] oxybutynin Allergy Unknown ADR-Faintin Verified 07/28/24 14:08 g Penicillins Allergy Unknown ALGY-Rash Verified 07/28/24 14:08 pregabalin Allergy Unknown ADV-Weaknes Verified 07/28/24 14:08 s sitagliptin Allergy Unknown ADR-Diarrhe Verified 07/28/24 14:08 a,ADV-Weakn ess Ryhvuox-WRO-ZcW Reductase Allergy Unknown Unknown Verified 07/28/24 14:08 Inhibitor [Gqucptq-MWL-MdD Reductase Inhibitors] topiramate Allergy Unknown ADR-Diarrhe Verified 07/28/24 14:08 a Toprol XL Allergy Unknown Unknown Unverified 06/28/24 16:24 zinc Allergy Unknown ALGY-Bliste Verified 07/28/24 14:08 r PFSH Acute 2 PFSH: Medical History Decubitus skin ulcer Cataracts, bilateral Sleep apnea Hypertension Diabetes mellitus, type II Osteoarthritis Chronic UTI (urinary tract infection) Fibromyalgia Depression Bipolar disorder Surgical History (Updated 06/25/24 @ 00:00 by SHANE Horne) History of gastric surgery History of cholecystectomy History of knee replacement History of orthopedic surgery Social History Smoking and tobacco/nicotine status: never used tobacco/nicotine Vitals/I&O/Wt Last Vital Signs Temp 98.1 F 07/28/24 14:03 Pulse 94 07/28/24 15:53 Resp 16 07/28/24 15:53 BP 150/82 07/28/24 15:53 Pulse Ox 98 07/28/24 15:53 O2 Del Method Room Air 07/28/24 15:53 Physical Exam 2 Const: COMMON NORMALS: no acute distress and patient oriented x3 Resp: COMMON NORMALS: normal respiratory effort, No retractions, No use of accessory muscles and clear to auscultation bilaterally AUSCULTATION: c rackles and wheezes Cardio: COMMON NORMALS: no JVD, regular rate, regular rhythm, S1 normal heart sound present and S2 normal heart sound present RATE: regular rate RHYTHM: regular rhythm HEART SOUNDS: S1 normal heart sound present and S2 normal heart sound present GI: COMMON NORMALS: Normal to inspection, nondistended, normoactive bowel sounds present, Soft to palpation and non-tender Extremity: COMMON NORMALS: no pedal edema Neuro: COMMON NORMALS: patient oriented x3, CN's II-XII intact bilaterally and moves all extremities Psych: COMMON NORMALS: mental status grossly normal Sepsis: Is patient septic: Yes Focused sepsis exam performed: Yes F ocused sepsis exam: Good cap refill, DP PT pulses palpable no mottling Date exam was performed: 07/28/24 Time exam was performed: 16:59 Data 07/28/24 14:23 07/28/24 14:23 Micro: Microbiology 07/28/24 15:59 Blood Culture - Preliminary Blood SPECIMEN COLLECTED 07/28/24 15:52 Blood Culture - Preliminary Blood SPECIMEN COLLECTED A&P Assessment and plan (1) Acute encephalopathy: (2) Pneumonia: (3) Sepsis: Plan Acute encephalopathy -Likely secondary pneumonia - neurochecks -Monitor mentation Pneumonia CTA chest Lungs: Emphysematous COPD. Scattered bilateral pulmonary infiltrates in the upper and lower lobes, right greater than left. A multifocal pneumonia is present. Plan -Monitor respiratory status -Blood cultures -Sputum cultures -Rocephin -Azithromycin -DuoNeb Sepsis, sepsis features met given pneumonia, leukocytosis, acute encephalopathy Chronic pain -Patient is on morphine 15 mg p.o. twice daily -She is on hydrocodone 5-325 every4 hours as needed -And for breakthrough pain she is on hydrocodone 7.5-325 every 6 hours as needed Full code Lovenox for DVT prophylaxis Attestations 2 Medical Necessity Statement*: Patient requires hospitalization for altered mental status, pneumonia, sepsis requiring inpatient admission, greater than 2 midnights Diagnoses Acute encephalopathy G93.40 Pneumonia J18.9 Sepsis A41.9
[2024-07-28] MEDS: AZITHROMYCIN ADD-Vantage 500 MG in 0.9% NaCl ADD-Vantage 250 ML 250 MG IV (16:51)
[2024-07-28 17:50] LABS: Reflex Lactate Order REFLEX LACTIC ORDERD
[2024-07-28 17:53] LABS: Troponin(5th) Baseline 13 ng/L (0-10)
[2024-07-28 18:02] LABS: NT Pro B Type Natriuretic Pept 670 pg/mL (0-125)
[2024-07-28] MEDS: enoxaparin 40 mg/0.4 mL Syringe SUBCUT (18:04)
[2024-07-28] MEDS: pantoprazole 40 mg SDV IVP (18:05)
[2024-07-28] MEDS: morphine ER (12 HR) 15 mg Tablet PO (18:05)
[2024-07-28 18:20] LABS: Troponin 5 2HR 13.61 ng/L (0-10); Troponin 5 2HR Delta 0.61 ABS# (0-10)
--- NOTE | 2024-07-28 18:31 | PC.NURSE ---
pt has stage 2 wound to R buttock, dressed this morning around 1000 by home health nurse, per . requests to not be 'messed with' at this time. Stage 1 also to left buttock; this looks as if it was a previous wound that has healed but there is still redness.
--- NOTE | 2024-07-28 18:48 | PC.NURSE ---
pt refused SCD's, educated her on the risks of not using them while hospitalized. She states she understands the risks and doesn't like to wear them because her legs jump too much
[2024-07-28 18:58] LABS: Chol HDL Ratio 2.61 mg/dL (0.0-4.40); Cholesterol 120 mg/dL (0-200); HDL Cholesterol 46 mg/dL (60-100); LDL Cholesterol Calculated 45 mg/dL (50-129); LDL HDL Ratio 0.98 RATIO (0.00-3.22); Thyroid Stimulating Hormone 3.65 uIU/mL (0.27-4.20); Triglycerides 147 mg/dL (0-150)
[2024-07-28 19:57] LABS: Lactic Acid level (Lactate) 2.4 mmol/L (0.5-2.2)
[2024-07-28 20:52] LABS: Estmated Average Glucose 100; Hemoglobin A1C 5.1 % (4.0-6.0)
[2024-07-28 21:21] LABS: Troponin 5 6HR 13.83 ng/L (0-10); Troponin 5 6HR Delta 0.83 ng/L (0-12)
[2024-07-28] MEDS: HYDROcodone-acetaminophen 5-325 mg Tablet 1 TAB PO (21:21)
[2024-07-28] MEDS: gabapentin 400 mg Capsule PO (21:21)
--- NOTE | 2024-07-28 23:04 | ECG_ITS ---
[facility] Test Date: 2024-07-29 Pat Name: Aiyana Sorto Department: Room: 272 Gender: Female Secretary To Board Of Commissioners: : 1955 Requested By: Fletcher Jefferson Order Number: [id number] Walsh MD: Adan Aparicio M.D. Measurements Intervals [place] Rate: 76 P: 58 ID: [id number] QRS: 35 QRSD: 94 T: 38 QT: 379 QTc: 426 Interpretive Statements SINUS RHYTHM Compared to ECG 07/28/2024 14:22:01 Sinus arrhythmia no longer present Electronically Signed On 07-31-2024 13:34:50 CROSSING SUPERVISOR by Adan Aparicio M.D. [email or web address]
[2024-07-29] VITALS (10 sets, daily range): BP systolic 106–132; BP diastolic 59–74; PULSE 73–82; RESP 16–18; TEMP 36.7–36.9; O2SAT 91–98
[2024-07-29] MEDS: HYDROcodone-acetaminophen 7.5-325 mg Tablet 1 TAB PO ×3 (02:36→21:09)
[2024-07-29 05:02] LABS: Basophils % 0.2 %; Eosinophils # 0.2 10^3/uL (0.0-0.8); Eosinophils % 2.1 %; Hematocrit 27.2 % (36-47); Lymphocytes # 4.1 10^3/uL (0.8-4.8); Lymphocytes % 39.5 %; Mean Corpuscular Hemoglobin 33.7 pg (27-33); Mean Corpuscular Volume 105.4 fl (85-98); Mean Platelet Volume 10.1 fL (7.4-10.4); Monocytes # 0.7 10^3/uL (0.2-0.9); Monocytes % 6.8 %; Neutrophils # 5.31 10^3/uL (1.8-7.7); Neutrophils % 51.1 %; Nucleated Red Blood Cells % 0 %; Platelet Count 275 10^3/cmm (157-399); Red Blood Count 2.58 10^6/uL (3.85-5.65); Red Cell Distribution Width 20.1 % (12.1-15.1); White Blood Count 10.39 10^3/uL (3.29-11.43)
[2024-07-29 05:25] LABS: Alanine Aminotransferase 12 U/L (0-33); Albumin Level 2.4 g/dL (3.5-5.2); Alkaline Phosphatase 154 U/L (35-105); Anion Gap 13.2 (5-19); Aspartate Amino Transferase 22 U/L (0-32); Blood Urea Nitrogen 16 mg/dL (8-23); Calcium 7.8 mg/dL (8.5-10.5); Carbon Dioxide 24 mmol/L (22-29); Chloride 104 mmol/L (98-107); Creatinine Clr Calc Pharmacy 61.0666; Globulin 2.6 g/dL (1.3-4.6); Glucose 85 mg/dL (65-115); Magnesium 1.6 mg/dL (1.7-2.3); Osmolality Calculated 284 mOsm/kg (285-295); Phosphorus 3.6 mg/dL (2.5-4.5); Potassium 4.2 mmol/L (3.5-5.1); Sodium 137 mmol/L (136-145); Total Bilirubin 0.4 mg/dL (0.15-1.2)
[2024-07-29] MEDS: gabapentin 400 mg Capsule PO ×4 (08:10→20:59)
[2024-07-29] MEDS: fluoxetine 20 mg Capsule PO (08:10)
[2024-07-29] MEDS: morphine ER (12 HR) 15 mg Tablet PO ×2 (08:16→16:57)
[2024-07-29] MEDS: HYDROcodone-acetaminophen 5-325 mg Tablet 1 TAB PO ×2 (10:28→18:28)
--- NOTE | 2024-07-29 12:53 | PC.CHAP ---
Pastoral Care Encounter/Spiritual Assessment Type of Contact [] Declined overedge sewer visit [] Patient/Family/Request visit [] Outpatient visit [] Follow-up visit [] Physician referral [] Code/Alert [x] Routine visit [] Staff referral [] Actively dying [] Patient sleeping [] Family support [] [] Out of room [] Palliative care [] [] Receiving care in room [] Pre-surgical visit [] Trauma [] Long length of stay [] ICU visit [] Other: Relational/Emotional Strength [x] Patient feels connected with others/family/visitors/staff [] Distress [] Loneliness/isolation [] Abandonment Spirituality of Patient [x] Person of Brie [] Attends Yarsani of their Brie [x] Believes in Prayer [] Reads Bible or Latter Day materials [] There are Spiritual issues to be addressed Copy Preparer Interventions [x] Prayer [x] Active listening [] Non-anxious presence [x] Spiritual/emotional support [] Crisis/trauma care [] Spiritual counseling [] Bereavement support [] Provided bereavement packet [] Provided Bible/devotional materials [] Provided toy/stuffed animal, coloring book to patient or family member [] Provided Communion [] Anointing/[place] [] Salvation [x] Completed spiritual assessment [] Other: Impact on Illness or Injury [] Angry [] Fearful [] Anxious [] Often cries [] Exhaustion [] Unable to work [] Unable to attend spiritism [] Unable to walk/stand [] Unable to read [] Unable to drive [] Unable to eat/drink [] Unable to sleep [] Unable to be with family [] Patient intubated [] Other: Summary Time spent with patient 5 min
--- NOTE | 2024-07-29 14:19 | P.PN_ITS ---
Subjective 2 Subjective: Patient was seen this morning, she is resting comfortably in bed, does have a cough, no fevers, chills, nausea, vomiting, alert oriented x 3, following all commands, Vitals/I&O/Wt Last Vital Signs Temp 98.2 F 07/29/24 11:27 Pulse 82 07/29/24 11:27 Resp 18 07/29/24 11:27 BP 131/71 07/29/24 11:27 Pulse Ox 93 07/29/24 11:27 O2 Del Method Room Air 07/29/24 11:27 07/28/24 07/29/24 07/29/24 22:59 06:59 14:59 Intake Total 2210 / 2210 120 / 2330 600 / 600 Output Total 2300 / 2300 550 / 2850 1100 / 1100 Balance -90 / -90 -430 / -520 -500 / -500 Weight last 48 hrs Weight 93.576 kg Weight 93.525 kg Physical Exam 2 Const: COMMON NORMALS: no acute distress and patient oriented x3 Resp: COMMON NORMALS: normal respiratory effort, No retractions, No use of accessory muscles and clear to auscultation bilaterally AUSCULTATION: clear to auscultation bilaterally Cardio: COMMON NORMALS: regular rate, regular rhythm, S1 normal heart sound present and S2 normal heart sound present RATE: regular rate RHYTHM: r egular rhythm HEART SOUNDS: S1 normal heart sound present and S2 normal heart sound present GI: COMMON NORMALS: Normal to inspection, nondistended, normoactive bowel sounds present and non-tender Extremity: COMMON NORMALS: no pedal edema Neuro: COMMON NORMALS: patient oriented x3 Psych: COMMON NORMALS: mental status grossly normal Urinary Catheter Management: Sloan: Cath Placed During This Visit: yes Reason for Continuing Indwelling Catheter: Assist healing open wound Urinary Catheter Date of Insertion: 07/28/24 Urinary Catheter Time of Insertion: 16:45 Data 07/29/24 04:48 07/29/24 04:48 Micro: Microbiology 07/28/24 15:59 Blood Culture - Preliminary Blood SPECIMEN COLLECTED 07/28/24 15:52 Blood Culture - Preliminary Blood SPECIMEN COLLECTED A&P Assessment and plan (1) Acute encephalopathy: (2) Pneumonia: (3) Sepsis: Plan Acute encephalopathy -Likely secondary pneumonia - neurochecks -Monitor mentation Pneumonia CTA chest Lungs: Emphysematous COPD. Scattered bilateral pulmonary infiltrates in the upper and lower lobes, right greater than left. A multifocal pneumonia is present. Plan -Monitor respiratory status -Blood cultures -Sputum cultures -Rocephin -Azithromycin -DuoNeb Sepsis, sepsis features met given pneumonia, leukocytosis, acute encephalopathy Chronic pain -Patient is on morphine 15 mg p.o. twice daily -She is on hydrocodone 5-325 every4 hours as needed -And for breakthrough pain she is on hydrocodone 7.5-325 every 6 hours as needed Full code Lovenox for DVT prophylaxis Plan for today PT OT, IV antibiotics, monitor mentation Attestations 2 Medical Necessity Statement*: Patient requires hospitalization pneumonia, acute encephalopathy, chronic pain, sepsis Diagnoses Acute encephalopathy G93.40 Pneumonia J18.9 Sepsis A41.9
[2024-07-29] MEDS: AZITHROMYCIN ADD-Vantage 500 MG in 0.9% NaCl ADD-Vantage 250 ML 250 MG IV (14:58)
[2024-07-29] MEDS: cefTRIAXone 1,000 mg SDV 1000 MG IVP (14:58)
[2024-07-29] MEDS: pantoprazole 40 mg SDV IVP (16:57)
[2024-07-29] MEDS: enoxaparin 40 mg/0.4 mL Syringe SUBCUT (16:58)
[2024-07-29] MEDS: guaiFENesin 600 mg Tablet PO (16:58)
[2024-07-30] VITALS (7 sets, daily range): BP systolic 113–122; BP diastolic 66–70; PULSE 70–87; RESP 16–19; TEMP 36.4–36.7; O2SAT 95–97
[2024-07-30] MEDS: HYDROcodone-acetaminophen 5-325 mg Tablet 1 TAB PO (02:54)
[2024-07-30] MEDS: HYDROcodone-acetaminophen 7.5-325 mg Tablet 1 TAB PO ×2 (05:28→11:19)
[2024-07-30 06:05] LABS: Basophils % 0.2 %; Eosinophils # 0.3 10^3/uL (0.0-0.8); Eosinophils % 2.9 %; Hematocrit 29.6 % (36-47); Lymphocytes # 4.8 10^3/uL (0.8-4.8); Lymphocytes % 55.2 %; Mean Corpuscular HGB Conc 32.8 g/dL (30-55); Mean Corpuscular Hemoglobin 33.9 pg (27-33); Mean Corpuscular Volume 103.5 fl (85-98); Mean Platelet Volume 10.2 fL (7.4-10.4); Monocytes # 0.6 10^3/uL (0.2-0.9); Monocytes % 6.6 %; Neutrophils # 3.05 10^3/uL (1.8-7.7); Neutrophils % 34.8 %; Nucleated Red Blood Cells % 0 %; Platelet Count 286 10^3/cmm (157-399); Red Blood Count 2.86 10^6/uL (3.85-5.65); Red Cell Distribution Width 20.1 % (12.1-15.1); White Blood Count 8.77 10^3/uL (3.29-11.43)
[2024-07-30 06:26] LABS: Alanine Aminotransferase 13 U/L (0-33); Albumin Level 2.4 g/dL (3.5-5.2); Alkaline Phosphatase 157 U/L (35-105); Anion Gap 12.7 (5-19); Aspartate Amino Transferase 21 U/L (0-32); Blood Urea Nitrogen 10 mg/dL (8-23); Calcium 8.3 mg/dL (8.5-10.5); Carbon Dioxide 26 mmol/L (22-29); Chloride 106 mmol/L (98-107); Creatinine Clr Calc Pharmacy 68.7207; Globulin 2.8 g/dL (1.3-4.6); Glucose 75 mg/dL (65-115); Magnesium 1.7 mg/dL (1.7-2.3); Osmolality Calculated 290 mOsm/kg (285-295); Phosphorus 3.4 mg/dL (2.5-4.5); Potassium 3.7 mmol/L (3.5-5.1); Sodium 141 mmol/L (136-145); Total Bilirubin 0.3 mg/dL (0.15-1.2); Total Protein 5.2 g/dL (6.6-8.7)
[2024-07-30] MEDS: guaiFENesin 600 mg Tablet PO (09:16)
[2024-07-30] MEDS: morphine ER (12 HR) 15 mg Tablet PO (09:16)
[2024-07-30] MEDS: fluoxetine 20 mg Capsule PO (09:16)
[2024-07-30] MEDS: gabapentin 400 mg Capsule PO (09:16)
--- NOTE | 2024-07-30 09:51 | PC.SOCIAL ---
IMM Updated Updated pt on IMM. No questions voiced. Provided pt a copy. Initialed, dated, & timed a copy & placed in chart.
--- NOTE | 2024-07-30 10:43 | PM.DCS ---
Discharge Providers Date of Admission: 07/28/24 16:46 Date of Discharge: July 30, 2024 Attending Provider at Admission: Fletcher Jefferson MD Attending Provider at Discharge: Fletcher Jefferson MD Primary Care Provider: Mango Ortiz MD Diagnoses at Discharge Discharge Diagnosis (1) Acute encephalopathy: Status: Acute (2) Pneumonia: Status: Acute (3) Sepsis: Status: Acute Reason for Visit Reason for Visit: Stroke Like Hospital Course Hospital Course Aiyana Sorto is a 69 year old female with a past medical history of chronic pain on multiple narcotics, history of decubitus ulcer history of HSV keratitis, type 2 diabetes mellitus, who presents [facility] for complaints of altered mental status, weakness. Currently patient is alert oriented x 3, following all commands, no nausea, no vomiting, headache, blurry vision, she has chronic neck pain, but no neck stiffness no worsening of her neck pain is at bedside he tells that today she has been confused, weak, not acting appropriately, she tells me that she had congestion in her chest for the last few days she thought she could manage at home however her symptoms persisted, does have a cough, chills, no fevers, nausea, vomiting, abdominal pain, no lightheadedness, no dizziness, no recent falls, no recent injuries Patient was admitted to [facility] for acute encephalopathy secondary to multifocal pneumonia, with sepsis, received IV antibiotics, mentation monitored, overall clinically improved. Will be discharged on cefdinir, Zithromycin, with a close follow-up with primary care provider as outpatient. At home patient ambulates with a gait belt, has home health care, home physical therapy which she should continue. Patient also has a DTI over the right thigh, right buttocks, for which he receives wound care at home continue wound care overall, clinically is healing well. Physical Exam Const: COMMON NORMALS: no acute distress and patient oriented x3 Resp: COMMON NORMALS: normal respiratory effort, No retractions, No use of accessory muscles and clear to auscultation bilaterally AUSCULTATION: clear to auscultation bilaterally Cardio: COMMON NORMALS: regular rate, regular rhythm, S1 normal heart sound present and S2 normal heart sound present RATE: regular rate RHYTHM: regular rhythm HEART SOUNDS: S1 normal heart sound present and S2 normal heart sound present GI: COMMON NORMALS: Normal to inspection, nondistended, normoactive bowel sounds present and non-tender Extremity: COMMON NORMALS: no calf tenderness and no pedal edema Neuro: COMMON NORMALS: patient oriented x3, CN's II-XII intact bilaterally, moves all extremities and no focal motor deficits Psych: COMMON NORMALS: mental status grossly normal Skin: OTHER: Right thigh, right buttocks, linear DTI, stage I -2, overall clinically improving, no drainage no surrounding erythema Urinary Catheter Management: Sloan: Cath Placed During This Visit: yes Reason for Continuing Indwelling Catheter: Assist healing open wound Urinary Catheter Date of Insertion: 07/28/24 Urinary Catheter Time of Insertion: 16:45 Discharge Data Studies Completed and Pending Completed Studies During Hospitalization Category Date Time Status CT head wo con* [id number] Stat Cat Scan 07/28/24 14:14 Completed CTA chest [CT angio chest PE protcl [id number]] Stat Cat Scan 07/28/24 15:17 Completed XR chest 1V portable [id number] Stat Exams 07/28/24 14:14 Completed Pending at discharge Category Date Time Status Blood Culture Stat Lab 07/28/24 15:59 Results Complete Blood Count w/Auto AM LABS Lab 07/31/24 04:00 Ordered Comprehensive Metabolic Panel AM LABS Lab 07/31/24 04:00 Ordered Magnesium AM LABS Lab 07/31/24 04:00 Ordered Phosphorus AM LABS Lab 07/31/24 04:00 Ordered Sputum Culture and Gram Stain Stat Lab 07/28/24 17:03 Uncollected Radiology Impressions Chest X-Ray 07/28/24 14:14 IMPRESSION: 1. No acute cardiopulmonary finding. Head CT 07/28/24 14:14 IMPRESSION: 1. No evidence of intracranial hemorrhage or mass effect. 2. LEFT maxillary sinusitis. This was present previously. 3. Mild small vessel changes with moderate parenchymal volume loss. Notified Kiran Desai MD at 07/28/2024 3:20 PM. Chest CTA 07/28/24 15:17 IMPRESSION: 1. No embolus. 2. Bilateral pulmonary infiltrates, right greater than left. \ 3. Moderately dilated pulmonary artery suggesting pulmonary arterial hypertension. COMMENTS: The presence of pulmonary emphysema on CT is an independent risk factor for lung cancer. In the absence of a history or active diagnosis of lung cancer, it is recommended that this patient with emphysema be evaluated for enrollment in a low dose CT lung cancer screening program. Laboratory Results WBC 8.77 10^3/uL (3.29-11.43) 07/30/24 05:49 RBC 2.86 10^6/uL (3.85-5.65) L 07/30/24 05:49 Hgb 9.70 g/dL (11.27-16.99) L 07/30/24 05:49 Hct 29.6 % (36-47) L 07/30/24 05:49 MCV 103.5 fl (85-98) H 07/30/24 05:49 MCH 33.9 pg (27-33) H 07/30/24 05:49 MCHC 32.8 g/dL (30-55) 07/30/24 05:49 RDW 20.1 % (12.1-15.1) H 07/30/24 05:49 Plt Count 286 10^3/cmm (157-399) 07/30/24 05:49 MPV 10.2 fL (7.4-10.4) 07/30/24 05:49 Neut % (Auto) 34.8 % 07/30/24 05:49 Lymph % (Auto) 55.2 % 07/30/24 05:49 [place] % (Auto) 6.6 % 07/30/24 05:49 Eos % (Auto) 2.9 % 07/30/24 05:49 Baso % (Auto) 0.2 % 07/30/24 05:49 Neut # (Auto) 3.05 10^3/uL (1.8-7.7) 07/30/24 05:49 Lymph # (Auto) 4.8 10^3/uL (0.8-4.8) 07/30/24 05:49 [place] # (Auto) 0.6 10^3/uL (0.2-0.9) 07/30/24 05:49 Eos # (Auto) 0.3 10^3/uL (0.0-0.8) 07/30/24 05:49 Baso # (Auto) 0.0 10^3/uL (0.0-0.1) 07/30/24 05:49 Nucleated RBC % (auto) 0 % 07/30/24 05:49 Nucleated RBCs # 0.0 /100WBC 07/30/24 05:49 PT 14.10 SECONDS (12.1-14.9) 07/28/24 14:23 INR 1.02 (0.8-1.2) 07/28/24 14:23 Sodium 141 mmol/L (136-145) 07/30/24 05:49 Potassium 3.7 mmol/L (3.5-5.1) 07/30/24 05:49 Chloride 106 mmol/L (98-107) 07/30/24 05:49 Carbon Dioxide 26 mmol/L (22-29) 07/30/24 05:49 Anion Gap 12.7 (5-19) 07/30/24 05:49 BUN 10 mg/dL (8-23) 07/30/24 05:49 Creatinine 0.7 mg/dL (0.5-0.9) 07/30/24 05:49 GFR Calculation Not Reportable 07/30/24 05:49 Glucose 75 mg/dL (65-115) 07/30/24 05:49 POC Glucose 112 mg/dL (70-110) H 07/28/24 14:10 Estimat Average Glucose 100 07/28/24 19:24 Hemoglobin A1c 5.1 % (4.0-6.0) 07/28/24 19:24 Calculated Osmolality 290 mOsm/kg (285-295) 07/30/24 05:49 Lactic Acid 2.1 mmol/L (0.5-2.2) 07/28/24 15:52 Lactic Acid (Sepsis) 2.4 mmol/L (0.5-2.2) H 07/28/24 19:24 Calcium 8.3 mg/dL (8.5-10.5) L 07/30/24 05:49 Phosphorus 3.4 mg/dL (2.5-4.5) 07/30/24 05:49 Magnesium 1.7 mg/dL (1.7-2.3) 07/30/24 05:49 Total Bilirubin 0.3 mg/dL (0.15-1.2) 07/30/24 05:49 AST 21 U/L (0-32) 07/30/24 05:49 ALT 13 U/L (0-33) 07/30/24 05:49 Alkaline Phosphatase 157 U/L (35-105) H 07/30/24 05:49 Ammonia 20 umol/L (11-51) 07/28/24 14:23 Troponin T Baseline 13 ng/L (0-10) H 07/28/24 14:23 Troponin T 120 Minute 13.61 ng/L (0-10) H 07/28/24 17:40 Delta Troponin T 0.61 ABS# (0-10) 07/28/24 17:40 Troponin T Hi Sens 6Hr 13.83 ng/L (0-10) H 07/28/24 20:52 Troponin T Hi Sens 6Hr Delta 0.83 ng/L (0-12) 07/28/24 20:52 NT-Pro-B Natriuret Pep 670 pg/mL (0-125) H 07/28/24 14:23 Total Protein 5.2 g/dL (6.6-8.7) L 07/30/24 05:49 Albumin 2.4 g/dL (3.5-5.2) L 07/30/24 05:49 Globulin 2.8 g/dL (1.3-4.6) 07/30/24 05:49 Triglycerides 147 mg/dL (0-150) 07/28/24 14:23 Cholesterol 120 mg/dL (0-200) 07/28/24 14:23 LDL Cholesterol, Calc 45 mg/dL (50-129) L 07/28/24 14:23 HDL Cholesterol 46 mg/dL (60-100) L 07/28/24 14:23 LDL/HDL Ratio 0.98 RATIO (0.00-3.22) 07/28/24 14:23 Cholesterol/HDL Ratio 2.61 mg/dL (0.0-4.40) 07/28/24 14:23 TSH 3.65 uIU/mL (0.27-4.20) 07/28/24 14:23 Urine Color Yellow (Yellow) 07/28/24 14:30 Urine Appearance Clear (CLEAR) 07/28/24 14:30 Urine pH 5.5 (5-7) 07/28/24 14:30 Ur Specific [place] 1.008 (1.005-1.030) 07/28/24 14:30 Urine Protein Negative (Negative) 07/28/24 14:30 Urine Glucose (UA) Negative (Normal) 07/28/24 14:30 Urine Ketones Negative (Negative) 07/28/24 14:30 Urine Blood Negative (Negative) 07/28/24 14:30 Urine Nitrate Negative (Negative) 07/28/24 14:30 Urine Bilirubin Negative (Negative) 07/28/24 14:30 Urine Urobilinogen 1.0 mg/dL (Negative) 07/28/24 14:30 Ur Leukocyte Esterase Negative (Negative) 07/28/24 14:30 Urine RBC 0-2 /hpf (0-2) 07/28/24 14:30 Urine WBC 0-5 /hpf (0-5) 07/28/24 14:30 Ur Squamous Epith Cells 0-5 /hpf (0-5) 07/28/24 14:30 Amorphous Sediment Not Reportable 07/28/24 14:30 Urine Bacteria None seen /hpf (NONE) 07/28/24 14:30 Hyaline Casts 1.65 /lpf 07/28/24 14:30 Coronavirus (PCR) Negative (Negative) 07/28/24 14:35 Influenza A (PCR) Negative (Negative) 07/28/24 14:35 Influenza Type B (PCR) Negative (Negative) 07/28/24 14:35 RSV (PCR) Negative (Negative) 07/28/24 14:35 Vitals Last Vital Signs Temp 98.0 F 07/30/24 07:28 Pulse 78 07/30/24 09:10 Resp 16 07/30/24 09:10 BP 116/66 07/30/24 07:28 Pulse Ox 95 07/30/24 09:10 O2 Del Method Room Air 07/30/24 09:10 Discharge Plan Discharge Patient Disposition: Home Condition: Stable Prescriptions: New cefdinir 300 mg capsule 300 mg PO BID 4 Days Qty: 8 0RF albuterol sulfate 90 mcg/actuation HFA aerosol inhaler 1 inh inhalation Q4H PRN (Reason: shortness of breath or wheezing) Qty: 8.5 0RF azithromycin 250 mg tablet 250 mg PO DAILY 4 Days Qty: 4 0RF Continued fluoxetine 20 mg capsule 20 mg PO DAILY morphine 15 mg tablet extended release 15 mg PO BID hydrocodone-acetaminophen 7.5-325 mg tablet 1 tab PO Q6H PRN (Reason: break through pain ) meclizine 12.5 mg tablet 12.5 mg PO DAILY PRN (Reason: dizziness) Qty: 30 0RF hydrocodone-acetaminophen 5-325 mg tablet 1 tab PO Q6H PRN (Reason: Pain) polymyxin B sulf-trimethoprim 10,000 unit- 1 mg/mL drops 1 drp ophthalmic (eye) QID moxifloxacin 0.5 % drops 1 drp ophthalmic (eye) QID cholecalciferol (vitamin D3) [Vitamin D3] 50 mcg (2,000 unit) Tablet 50 mcg PO DAILY Advanced Probiotic 625 mg (10 billion cell) Capsule 1 cap PO DAILY gabapentin 800 mg Tablet 400 mg PO QID Qty: 30 0RF valacyclovir 1 gram tablet 1 mg PO TID diphenoxylate-atropine 2.5-0.025 mg tablet 1 - 2 tab PO QID PRN (Reason: Diarrhea) cetirizine [Zyrtec] 10 mg Tablet 10 mg PO DAILY Discharge Orders: Discharge Order (Routine); Ordered 07/30/24 Ordered By: Fletcher Jefferson Referrals: Mango Ortiz MD [Primary Care Provider] - 1-3 days Discharge Diet: Regular Discharge Activity: Resume usual activity Patient Instructions: Opioid Safety, Pain Management Discharge Attestations Time Spent in Discharge Care*: greater than 30 min Status at Discharge: Cognitive status at discharge: cognitively intact, Behavioral status at discharge: cooperative, Quality Metrics Clinical Quality Measures [ No reported AMI, CVA or VTE this stay] Coding Level of Care Code 54623 Total time (in minutes) for Discharge: 45 Diagnoses Acute encephalopathy G93.40 Pneumonia J18.9 Sepsis A41.9
--- NOTE | 2024-07-30 14:38 | PC.NURSE ---
Discussed discharge with patient. Explained new medications and continued medications. Discussed the pneumonia stop light with patient as well as her follow up appointment. Patient verbalized understading.
== END 2024-07-30 13:20 | disposition home health service (06) | DRG 871 ==
LOC: ER 16:23 → MEDSURG 16:47
PROVIDERS: Admitting Provider Family Medicine; Emergency Provider Emergency Medicine; PCP Family Medicine; Visit Provider Family Medicine
DX: A41.9 Sepsis, unspecified organism (principal); J18.9 Pneumonia, unspecified organism; G93.40 Encephalopathy, unspecified; G89.29 Other chronic pain; E11.9 Type 2 diabetes mellitus without complications; G47.30 Sleep apnea, unspecified; I10 Essential (primary) hypertension; M19.90 Unspecified osteoarthritis, unspecified site; M79.7 Fibromyalgia; F31.9 Bipolar disorder, unspecified; L89.321 Pressure ulcer of left buttock, stage 1; L89.312 Pressure ulcer of right buttock, stage 2; Z79.891 Long term (current) use of opiate analgesic; Z96.659 Presence of unspecified artificial knee joint; Z87.440 Personal history of urinary (tract) infections; Z90.49 Acquired absence of other specified parts of digestive tract
CPT/HCPCS: 36415; 36416; 51702; 70450; 71045; 71275; 80053; 80061; 81001; 82140; 82962; 83036; 83605; 83735; 83880; 84100; 84443; 84484; 85025; 85610; 87040; 87637; 93005; 94664; 96365; 96372; 96375; 97162; 97530; 99285; J0456; J0696; J1650; J2470; J7030; J7050